=== PATIENT | male | born 1955 | race Caucasian/White ===

== ENCOUNTER 2021-01-06 23:31 | Emergency (ER) | payer OTHER ==
--- NOTE | 2021-01-07 00:39 | ER ---
Nurse's Notes [facility] Name: Haroldo Castillo Jr Age: 65 yrs Sex: Male : 1955 Arrival Date: 01/06/2021 Time: 23:34 Bed 5 Private MD: Diagnosis: Hypertension Presentation: 01/06 23:40 Chief complaint: Patient states: might have taken his medication or not this morning ca1 for BP, felt anxious and checked BP at home, was 197/107, denies chest pain, headache or any other symptoms. Coronavirus screen: Client denies travel out of the [place] in the last 14 days. Ebola Screen: Patient negative for fever greater than or equal to 101.5 degrees Fahrenheit, and additional compatible Ebola Virus Disease symptoms Patient denies exposure to infectious person. Patient denies travel to an Ebola-affected area in the 21 days before illness onset. No symptoms or risks identified at this time. Initial Sepsis Screen: Does the patient meet any 2 criteria? No. Patient's initial sepsis screen is negative. Does the patient have a suspected source of infection? No. Patient's initial sepsis screen is negative. Risk Assessment: Do you want to hurt yourself or someone else? Patient reports no desire to harm self or others. Onset of symptoms was January 06, 2021. 23:40 Method Of Arrival: Ambulatory ca1 23:40 Acuity: VIKTOR 3 ca1 Historical: - Allergies: 23:43 No Known Allergies; ca1 - PMHx: 23:43 Hypertensive disorder; ca1 - PSHx: 23:43 Cholecystectomy; ca1 - Immunization history:: Adult Immunizations up to date. - Social history:: Smoking status: Patient denies any tobacco usage or history of. Screenin/05 00:16 Abuse screen: Denies threats or abuse. Denies injuries from another. Nutritional bs2 screening: No deficits noted. Tuberculosis screening: No symptoms or risk factors identified. Fall Risk None identified. Assessment: 00:16 General: Appears in no apparent distress. comfortable, obese, well groomed, well bs2 developed, well nourished, Behavior is calm, cooperative, appropriate for age. Pain: Denies pain. Neuro: No deficits noted. Cardiovascular: No deficits noted. Respiratory: No deficits noted. GI: No deficits noted. No signs and/or symptoms were reported involving the gastrointestinal system. : No deficits noted. No signs and/or symptoms were reported regarding the genitourinary system. EENT: No deficits noted. No signs and/or symptoms were reported regarding the EENT system. Derm: No deficits noted. No signs and/or symptoms reported regarding the dermatologic system. Musculoskeletal: No deficits noted. No signs and/or symptoms reported regarding the musculoskeletal system. 00:17 General: pt feels he did not take his BP medication this morning and his BP is bs2 elevated, no complaint of pain or any S/S. Pt states he really just wanted to know if he had taken his medication this morning and then took it again tonight would it have hurt him. . Vital Signs: 01/06 23:40 BP 198 / 95; Pulse 67; Resp 18; Temp 98.3; Pulse Ox 99% on R/A; Weight 104.78 kg; ca1 Height 5 ft. 8 in. (172.72 cm); Pain 0/10; 01/07 00:43 BP 168 / 94; Pulse 68; Resp 18; Temp 98.3; Pulse Ox 100% ; Pain 0/10; bs2 01/06 23:40 Body Mass Index 35.12 (104.78 kg, 172.72 cm) ca1 ED Course: 01/06 23:34 Patient arrived in ED. bp1 23:43 Triage completed. ca1 23:43 Arm band placed on. ca1 01/07 00:16 Patient has correct armband on for positive identification. Bed in low position. Call bs2 light in reach. Side rails up X 1. Pulse ox on. NIBP on. 00:16 No provider procedures requiring assistance completed. bs2 00:26 Mike Jacobson MD is Attending Physician. pkl 00:43 Patient did not have IV access during this emergency room visit. bs2 Administered Medications: No medications were administered Outcome: 00:39 Discharge ordered by . pkl 00:43 Discharged to home ambulatory, with family. bs2 00:43 Condition: improved 00:43 Discharge instructions given to patient, family, Instructed on discharge instructions, follow up and referral plans. medication usage, Demonstrated understanding of instructions, follow-up care. 00:44 Patient left the ED. bs2 Signatures: Mike Jacobson MD MD pkl Jessica Pearce RN RN ca1 Kajal Morfin bp1 Crow, Yamile bs2
--- NOTE | 2021-01-07 00:39 | EDPHYS ---
Physician Documentation [facility] Name: Haroldo Castillo Jr Age: 65 yrs Sex: Male : 1955 Arrival Date: 01/06/2021 Time: 23:34 Bed 5 Private MD: ED Physician Mike Jacobson HPI: 01/07 00:32 This 65 yrs old Male presents to ER via Ambulatory with complaints of High pkl Blood Pressure. 00:32 Onset: The symptoms/episode began/occurred today. Associated signs and symptoms: The pkl patient has no apparent associated signs or symptoms. Patient unsure if he took his BP medication this morning.. Historical: - Allergies: 01/06 23:43 No Known Allergies; ca1 - PMHx: 23:43 Hypertensive disorder; ca1 - PSHx: 23:43 Cholecystectomy; ca1 - Immunization history:: Adult Immunizations up to date. - Social history:: Smoking status: Patient denies any tobacco usage or history of. ROS: 01/07 00:32 Eyes: Negative for injury, pain, redness, and discharge, ENT: Negative for injury, pkl pain, and discharge, Neck: Negative for injury, pain, and swelling, Cardiovascular: Negative for chest pain, palpitations, and edema, Respiratory: Negative for shortness of breath, cough, wheezing, and pleuritic chest pain, Abdomen/GI: Negative for abdominal pain, nausea, vomiting, diarrhea, and constipation, Back: Negative for injury and pain, : Negative for injury, bleeding, discharge, and swelling, MS/Extremity: Negative for injury and deformity, Skin: Negative for injury, rash, and discoloration, Neuro: Negative for headache, weakness, numbness, tingling, and seizure. Exam: 00:32 Head/Face: Normocephalic, atraumatic. Eyes: Pupils equal round and reactive to light, pkl extra-ocular motions intact. Lids and lashes normal. Conjunctiva and sclera are non-icteric and not injected. Cornea within normal limits. Periorbital areas with no swelling, redness, or edema. ENT: Nares patent. No nasal discharge, no septal abnormalities noted. Tympanic membranes are normal and external auditory canals are clear. Oropharynx with no redness, swelling, or masses, exudates, or evidence of obstruction, uvula midline. Mucous membranes moist. Neck: Trachea midline, no thyromegaly or masses palpated, and no cervical lymphadenopathy. Supple, full range of motion without nuchal rigidity, or vertebral point tenderness. No Meningismus. Chest/axilla: Normal chest wall appearance and motion. Nontender with no deformity. No lesions are appreciated. Cardiovascular: Regular rate and rhythm with a normal S1 and S2. No gallops, murmurs, or rubs. Normal PMI, no JVD. No pulse deficits. Respiratory: Lungs have equal breath sounds bilaterally, clear to auscultation and percussion. No rales, rhonchi or wheezes noted. No increased work of breathing, no retractions or nasal flaring. Abdomen/GI: Soft, non-tender, with normal bowel sounds. No distension or tympany. No guarding or rebound. No evidence of tenderness throughout. Back: No spinal tenderness. No costovertebral tenderness. Full range of motion. Skin: Warm, dry with normal turgor. Normal color with no rashes, no lesions, and no evidence of cellulitis. MS/ Extremity: Pulses equal, no cyanosis. Neurovascular intact. Full, normal range of motion. Neuro: Awake and alert, GCS 15, oriented to person, place, time, and situation. Cranial nerves II-XII grossly intact. Motor strength 5/5 in all extremities. Sensory grossly intact. Cerebellar exam normal. Normal gait. Vital Signs: 01/06 23:40 BP 198 / 95; Pulse 67; Resp 18; Temp 98.3; Pulse Ox 99% on R/A; Weight 104.78 kg; ca1 Height 5 ft. 8 in. (172.72 cm); Pain 0/10; 01/07 00:43 BP 168 / 94; Pulse 68; Resp 18; Temp 98.3; Pulse Ox 100% ; Pain 0/10; bs2 01/06 23:40 Body Mass Index 35.12 (104.78 kg, 172.72 cm) ca1 MDM: 00:26 Patient medically screened. pkl 00:36 Data reviewed: vital signs, nurses notes. ED course: Patient asymptomatic. Advised pkl patient he may take his BP med. tonight. Administered Medications: No medications were administered Disposition Summary: 01/07/21 00:39 Discharge Ordered Location: Home pkl Problem: new pkl Symptoms: have improved pkl Condition: Stable pkl Diagnosis - Hypertension pkl Followup: pkl - With: Private Physician - When: 2 - 3 days - Reason: Re-evaluation by your physician Forms: - Medication Reconciliation Form pkl - Thank You Letter pkl - Antibiotic Education pkl - Prescription Opioid Use pkl Signatures: Mike Jacobson MD MD pkl Jessica Pearce RN RN ca1
[2021-01-07 00:49] VITALS: TEMP 98.3
[2021-01-07 00:50] VITALS: BP 168/94; O2SAT 100
== END 2021-01-07 00:44 | disposition home or self-care (01) ==
LOC: ER 23:31
DX: I10 Essential (primary) hypertension (principal)
CPT/HCPCS: 99283

== ENCOUNTER 2022-02-07 07:32 | Emergency (ER) | payer MEDICARE ==
--- OUTSIDE RECORDS SUMMARY | 2022-02-07 07:35 | XMS REPORT | Continuity of Care Document ---
:1955 Author Organization [facility] t Address [address] [place] [address] Care Team Providers Name Role Phone Jorge Oates Attending Clinician Unavailable Lucian Orosco Attending Clinician Unavailable Michelle Mendez Attending Clinician Unavailable MICHELLE MENDEZ Attending Clinician Unavailable Jorge Oates Admitting Clinician Unavailable UNDEFINED Admitting Clinician Unavailable Physician, No Primary or Family Admitting Clinician UnavailMichelle Burton Admitting Clinician Unavailable Payers Payer Name Policy Type Policy Number Effective Date Expiration Date [facility] On [facility]iz [id number] 2021 (MEDICARE 00:00:00 REPLACEMENT HMO) Problems This patient has no known problems. Allergies, Adverse Reactions, Alerts Allergy Allergy Status Severity Reaction(s) Onset Inactive Treating Comm ents Source Name Type Date Date Clinician No Known DA Active U [facility] Allergie 7-20 [place] s 00:00: [facility] [address] [facility] Medications This patient has no known medications. Procedures Procedure Date / Time Performed Performing Clinician [facility] ez [id number] 2022-02-03 00:00:00 REYMUNDO [facility] [id number] 2022-01-27 00:00:00 HAAER [facility] [id number] 2022-01-27 00:00:00 [facility] [id number] 2022-01-27 00:00:00 AER [facility] [id number] 2022-01-27 00:00:00 [facility] Encounters Start End Encounter Admission Attending Care Care Encounter Source Date/Time Date/Time Type Type Clinicians Facility Department ID 2022-02-02 Inpatient EM [facility] [id number] [facility] 10:23:00 Jorge [id number] [facility] are [facility] 2022-02-02 2022-02-05 Inpatient EM [facility] [id number] [facility] 10:23:00 16:36:00 Jorge 61 [facility] are [facility] 2022-02-01 2022-02-01 Emergency EM Ana Luisa [facility] OANH [id number] [facility] 12:26:00 16:45:00 Lucian 30 [facility] are [facility] 2022-02-01 2022-02-01 Emergency EM Ana Luisa [facility] [id number] [facility] 12:26:00 16:45:00 Lucian [id number] [facility] 2022-01-27 2022-01-30 Inpatient EL Mendez, Michelle [facility] [id number] [facility] 05:57:00 10:01:00 [id number] [facility] 2022-01-27 2022-01-30 Inpatient EL Mendez, Michelle [facility]01 [id number] [facility] 05:57:00 10:01:[address] [facility] [place] [place] 2022-01-28 2022-01-28 Outpatient Mendez, Michelle HCANW REF BN02 [id number] [facility] 08:13:00 08:13:00 48 [facility] 2022-01-22 2022-01-22 Outpatient EL Mendez, Michelle [facility] 3DAY [id number] [facility] 08:00:00 23:00:00 76 [facility] 2022-01-22 2022-01-22 Outpatient MENDEZ, MICHELLE [facility] 2100 [id number] [place] 00:00:00 00:00:00 335 [facility] 2022-01-22 2022-01-22 Outpatient MENDEZ, MICHELLE [facility] 2100 [id number] [place] 00:00:00 00:00:00 543 [facility] 2022-01-22 2022-01-22 Outpatient MENDEZ, MICHELLE [facility] 2100 [id number] [place] 00:00:00 00:00:[address] 2022-01-17 2022-01-17 Outpatient DMG DMG [id number] [facility] 06:04:00 06:04:00 07[facility] 2021-06-11 2021-06-11 Outpatient DMG DMG [id number] [facility] 08:01:00 08:01:00 1207 [facility] Results Test Description Test Time Test Comments Results Result Comments Source BASIC METABOLIC PANEL 2022-02-05 05:47:00 Test Item Value Reference Range Interpretation Comme nts SODIUM (test code = NA) 141 mmol/L 136-145 N Plea se note: New Reference Range Aug 2020 POTASSIUM (test code = K) 3.4 mmol/L 3.5-5.1 L CHLORIDE (test code = CL) 107 mmol/L 98-[address] ease note: New Reference Range Aug 2020 CARBON DIOXIDE (test code 27 mmol/L 20-[address] Pl ease note: New Reference = CO2) Range Aug 2020 GLUCOSE (test code = GLU) 94 mg/dL 74-[address] ease note: New Reference Range Aug 2020 BLOOD UREA NITROGEN (test 13 mg/dL 9-[address] ease note: New Reference code = BUN) Range Aug 2020 GLOMERULAR FILTRATION >=60 max estimate >60 U nits are mL/min/1.73m2 RATE (test code = GFR) mL/min The e stimated glomerular filtration rate is computed usingp atient race, age (>18) , sex, and serum creatinin e. If anyof the needed data elements are missing the Laboratory cannot compute an estimation of t he glomerular filt ration rate. CREATININE (test code = 0.50 mg/dL 0.70-1.30 L Plea se note: New Reference CREAT) Range Aug 2020 CALCIUM (test code = CA) 8.2 mg/dL 8.7-10.4 L Ple ase note: New Reference Range Aug 2020 [id number] 05:47:00 Test Item Value Reference Range Interpretation Comments MAGNESIUM (test code = 1.8 mg/dL 1.6-2.6 N Pleas e note: New MAG) Reference Range Aug 2020 - XR ABDOMEN [id number] 08:37:00 [facility] 1955 Sex: MPatient Name: MARGARET WEEMS JR Unit No: [id number] EXAMS: CPT CODE: [id number] XR ABDOMEN 1V 58356 Abdomen (KUB) History: abdominal exam Comparison: February 02, 2022 Location: [facility] Number ofimages: 1 There are dilated air-filled loops of small bowel. The bones appear unchanged. No pathologic calcifications are identified. IMPRESSION: There continue to be dilated air-filled loops of small bowel, which could be due to a small bowel obstruction. This finding appears similar to the prior exam. The nasogastric tube terminates in the stomach. The sidehole of the nasogastric tube is in the region of the gastroesophageal junction may want to be advanced about 4 cm. at 0837 Reported and signed by: CARLOS JIMENEZ M.D. CC: Jorge Oates MD; Casper Blanco DO Technologist: Galo Keyes RT (R), (CT) Fluoro Time: DAP (Gy m2): Air Kerma (mGy): Trscr Dt/Tm: 02/04/2022 (0837) by:[email or web address] Printed Date/Time: 02/04/2022 (0840)Name: MARGARET WEEMS JR [facility] Phys: Casper Esqueda DO [address] : 1955 Age: 66 Sex: [place] [address] Loc: P.0576 1 Exam Date: 02/04/2022 Status: ADM IN PH: FAX: PAGE 1 Signed ReportBASIC METABOLIC [id number] 05:03:00 Test Item Value Reference Range Interpretation Comments SODIUM (test code 143 mmol/L 136-145 N Please not e: New = NA) Reference Range Aug 2020 POTASSIUM (test 3.1 mmol/L 3.5-5.1 L code = K) CHLORIDE (test 106 mmol/L 98-107 N Please note: New code = CL) Reference Range Aug 2020 CARBON DIOXIDE 27 mmol/L 20-31 N Please note: New (test code = CO2) Reference Range Aug 2020 GLUCOSE (test code 87 mg/dL 74-106 N Please no te: New = GLU) Reference Range Aug 2020 BLOOD UREA 16 mg/dL 9-23 N Please note: Ne w NITROGEN (test Reference Ran ge Feb code = BUN) 2020 GLOMERULAR >=60 max >60 Units are FILTRATION RATE estimate mL/min mL/min/1. 73m2 The (test code = GFR) estimated glomerular filtration rate is computed usingpatient ra ce, age (>18), sex, and serum creatinin e. If anyof the neede d data elements a re missing the Laboratory faith ot compute an estimation of t he glomerular filtration rate . CREATININE (test 0.60 mg/dL 0.70-1.30 L Please note : New code = CREAT) Reference Rang e Aug 2020 CALCIUM (test code 8.0 mg/dL 8.7-10.4 L Please no te: New = CA) Reference Range Aug 2020 [id number] 05:03:00 Test Item Value Reference Range Interpretation Comments MAGNESIUM (test code = 2.0 mg/dL 1.6-2.6 N Pleas e note: New MAG) Reference Range Aug 2020 - XR CHEST 1 [id number] 08:55:00 [facility] : 1955 Sex: MPatient Name: MARGARET WEEMS JR Unit No: [id number] EXAMS: CPT CODE: [id number] XR CHEST 1 V 11841 Chest Radiograph History: NG TUBE PLACEMENT Comparison: February 02, 2022 Location: H45 A single frontal view of the chest is submitted. The heart appears unchanged in size. Pulmonary vasculature is unremarkable. The visualized lung crook appear to be free of disease. The bones appear unchanged. A nasogastric tube terminates in the stomach. IMPRESSION: There is no radiographic evidence of acute cardiopulmonary disease. at 0855 Reported and signed by: CARLOS JIMENEZ M.D. CC: Jorge Oates MD; Casper Blanco DO Technologist: Chelsey Barillas (R) Fluoro Time: DAP (Gy m2): Air Kerma (mGy): Trscr Dt/Tm: 02/03/2022 (0855)by:[email or web address] Printed Date/Time: 02/03/2022 (0859) Name[facility] Cas[facility]qu[facility] [address] : 1955 Age: 66 Sex: M [place], [place] [address]Uthh No: [id number] Loc: P.0576 1 Exam Date: 02/03/2022 Status: ADM IN PH: FAX: PAGE 1 Signed ReportBASIC METABOLIC PANEL 2022-02-03 04:13:00 Test Item Value Reference Range Interpretation Comments SODIUM (test code 140 mmol/L 136-145 N Please not e: New = NA) Reference Range Aug 2020 POTASSIUM (test 3.5 mmol/L 3.5-5.1 N code = K) CHLORIDE (test 103 mmol/L 98-107 N Please note: New code = CL) Reference Range Aug 2020 CARBON DIOXIDE 28 mmol/L 20-31 N Please note: New (test code = CO2) Reference Range Aug 2020 GLUCOSE (test code 88 mg/dL 74-106 N Please no te: New = GLU) Reference Range Aug 2020 BLOOD UREA 15 mg/dL 9-23 N Please note: Ne w NITROGEN (test Reference Ran ge Feb code = BUN) 2020 GLOMERULAR >=60 max >60 Units are FILTRATION RATE estimate mL/min mL/min/1. 73m2 The (test code = GFR) estimated glomerular filtration rate is computed usingpatient ra ce, age (>18), sex, and serum creatinin e. If anyof the neede d data elements a re missing the Laboratory faith ot compute an estimation of t he glomerular filtration rate . CREATININE (test 0.60 mg/dL 0.70-1.30 L Please note : New code = CREAT) Reference Rang e Aug 2020 CALCIUM (test code 8.2 mg/dL 8.7-10.4 L Please no te: New = CA) Reference Range Aug 2020 [id number] 04:13:00 Test Item Value Reference Range Interpretation Comments PHOSPHOROUS (test code 3.5 mg/dL 2.4-5.1 N Pleas e note: New = PHOS) Reference Range Aug 2020 [id number] 04:13:00 Test Item Value Reference Range Interpretation Comments MAGNESIUM (test code = 1.9 mg/dL 1.6-2.6 N Pleas e note: New MAG) Reference Range Aug 2020 CBC W/AUTO [id number] 03:51:00 Test Item Value Reference Range Interpretation Comments WHITE BLOOD CELL (test code = 7.6 x10 3/uL 4.8-10.8 N WBC) RED BLOOD CELL (test code = 3.96 x10 6/uL 4.70-6.10 L RBC) HEMOGLOBIN (test code = HGB) 12.4 g/dL 14.0-18.0 L HEMATOCRIT (test code = HCT) 36.3 % 42.0-52.0 L MEAN CELL VOLUME (test code = 91.7 fL 80.0-94.0 N MCV) MEAN CELL HGB (test code = MCH) 31.3 pg 27-31 H MEAN CELL HGB CONCENTRATION 34.2 G/DL 33-36.5 N (test code = MCHC) RED CELL DISTRIBUTION WIDTH 12.6 % 12.9-16.9 L (test code = RDW) PLATELET COUNT (test code = 381 x10 3/uL 150-440 N PLT) MEAN PLATELET VOLUME (test code 10.2 fL 8.9-12.4 N = MPV) NEUTROPHIL % (test code = NT%) 71.6 % 42.2-75.2 N LYMPHOCYTE % (test code = LY%) 9.5 % 20.5-51.1 L MONOCYTE % (test code = MO%) 15.2 % 1.7-9.3 H EOSINOPHIL % (test code = EO%) 2.9 % 0.0-7.0 N BASOPHIL % (test code = BA%) 0.3 % 0-2.5 N NEUTROPHIL # (test code = NT#) 5.44 x10 3/uL 1.80-7.70 N LYMPHOCYTE # (test code = LY#) 0.72 x10 3/uL 1.00-4.80 L MONOCYTE # (test code = MO#) 1.15 x10 3/uL 0.00-0.80 H EOSINOPHIL # (test code = EO#) 0.22 x10 3/uL 0.00-0.45 N BASOPHIL # (test code = BA#) 0.02 x10 3/uL 0.0-0.20 N - XR CHEST 1 [id number] 17:41:00 [facility] 1955 Sex: MPatient Name: MARGARET WEEMS Unit No: [id number] EXAMS: CPT CODE: [id number] XR CHEST 1 V 03196 EXAM: - XR CHEST 1 V, - XR ABDOMEN 1V HISTORY: Pain. Post surgery. COMPARISON: February 01, 2022. FINDINGS: Single portable view of the chest and abdomen is provided. Heart size and vascularity are within normal limits. There is no evidence of a focal consolidation. There is no pleural effusion or pneumothorax. Nasogastric tube is projecting over the distal stomach. Cholecystectomy clips is present. Gas-filled distended loops of bowel as before. There is no definite acute osseous abnormality. IMPRESSION: Gas distended bowel may represent obstruction or ileus. at 1741 Reported and signed by: BRIANNA MELLO M.D. CC: Jeff Oates MD Technologist: Brie Gutiérrez Time: DAP (Gy m2): Air Kerma (mGy): Trscr Dt/Tm: 02/02/2022 (1740) by:[email or web address] Printed Date/Time: 02/02/2022 (174) Name: MARGARET WEEMS JR [facility] Phys: Jorge Montes MD [address] : 1955 Age: 66 Sex: [place] [address] Loc: P.0576 1 Exam Date: 02/02/2022 Status: ADM IN PH: FAX: PAGE 1 Signed Report- XR ABDOMEN 1V 2022-02-02 17:41:00 [facility] : 1955 Sex: MPatient Name: MARGARET WEEMS JR Unit No: [id number] EXAMS: CPT CODE: [id number] XR ABDOMEN 1V 93313 EXAM: - XR CHEST 1 V, - XR ABDOMEN 1V HISTORY: Pain. Post surgery. COMPARISON: February 01, 2022. FINDINGS: Single portable view of the chest and abdomen is provided. Heart size and vascularity are within normal limits. There is no evidence of a focal consolidation. There is no pleural effusionor pneumothorax. Nasogastric tube is projecting over the distal stomach. Cholecystectomy clips is present. Gas-filled distended loops of bowel as before. There is no definite acute osseous abnormality.IMPRESSION: Gas distended bowel may represent obstruction or ileus. at 1741 Reported and signed by: BRIANNA MELLO M.D. CC: Jeff Oates MD; Casper Blanco DO Technologist: Brie Gutiérrez Time: DAP (Gy m2): Air Kerma (mGy): Trscr Dt/Tm: 02/02/2022 (174) by:[email or web address] Printed Date/Time: 02/02/2022 (174)Name: MARGARET WEEMS JR [facility] Phys: Casper Esqueda DO [address] : 1955 Age: 66 Sex: [place] [address] Loc: P.0576 1 Exam Date: 02/02/2022 Status: ADM IN PH: FAX: PAGE 1 Signed Report- XR ABDOMEN [id number] 10:08:00 [facility] : 1955 Sex: MPatient Name: MARGARET WEEMS JR Unit No: [id number] EXAMS: CPT CODE: [id number] XR ABDOMEN 1V 48416 Location code: B2 Abdomen one view HISTORY: Abdominal pain. Comparison to CT scan from yesterday COMMENT: The abdominal radiograph shows mildly prominent small bowel loops in the central abdomen measuring up to 5.1 cm. Minimal scattered gas in the colon. There is no pneumatosis or mass effect. There are no radiopaque densities noted. There are no clinically significant osseous abnormalities noted. IMPRESSION: 1. Prominent small bowel loops may suggest a partial small bowel obstruction or ileus at 1008 Reported and signed by: Yong Castle M.D. CC: Technologist: Brie Gutiérrez Time: DAP (Gy m2): Air Kerma (mGy): Trscr Dt/Tm: 02/02/2022 (1008) by:[email or web address] Printed Date/Time: 02/02/2022 (1011) Name: MARGARET WEEMS JR [facility] Phys: Jose Butts [address] : 1955 Age: 66 Sex: [place] [address] Loc: MALIKA Exam Date: 02/02/2022 Status: REG ER PH: FAX: PAGE 1 Signed ReportBASIC METABOLIC [id number] 10:02:00 Test Item Value Reference Range Interpretation Comments SODIUM (test code 136 mmol/L 136-145 N Please not e: New = NA) Reference Range Aug 2020 POTASSIUM (test 3.5 mmol/L 3.5-5.1 N code = K) CHLORIDE (test 100 mmol/L 98-107 N Please note: New code = CL) Reference Range Aug 2020 CARBON DIOXIDE 29 mmol/L 20-31 N Please note: New (test code = CO2) Reference Range Aug 2020 GLUCOSE (test code 120 mg/dL 74-106 H Please no te: New = GLU) Reference Range Aug 2020 BLOOD UREA 12 mg/dL 9-23 N Please note: Ne w NITROGEN (test Reference Ran ge Feb code = BUN) 2021 GLOMERULAR >=60 max >60 Units are FILTRATION RATE estimate mL/min mL/min/1. 73m2 The (test code = GFR) estimated glomerular filtration rate is computed usingpatient ra ce, age (>18), sex, and serum creatinin e. If anyof the neede d data elements a re missing the Laboratory faith ot compute an estimation of t he glomerular filtration rate . CREATININE (test 0.60 mg/dL 0.70-1.30 L Please note : New code = CREAT) Reference Rang e Aug 2020 CALCIUM (test code 8.8 mg/dL 8.7-10.4 N Please no te: New = CA) Reference Range Aug 2020 LIVER FUNCTION [id number] 10:02:00 Test Item Value Reference Range Interpretation Comments TOTAL PROTEIN (test 6.6 g/dL 5.7-8.2 N Please n ote: New code = PROT) Reference Range Aug 2020 ALBUMIN (test code = 3.9 g/dL 3.2-4.8 N Please note: New ALB) Reference Range Aug 2020 BILIRUBIN TOTAL (test 1.6 mg/dL 0.3-1.2 H Please note: New code = BILT) Reference Range Aug 2020 BILIRUBIN DIRECT (test 0.7 mg/dL <0.3 H Pleas e note: New code = BILD) Reference Range Aug 2020 SGOT/AST (test code = 19 U/L <34 N Please note: New AST) Reference Range Aug 2020 SGPT/ALT (test code = 12 U/L 10-49 N Please note: New ALT) Reference Range Aug 2020 ALKALINE PHOSPHATASE 48 U/L 46-116 N Please note: New (test code = ALKP) Reference Range Aug 2020 [id number] 10:02:00 Test Item Value Reference Range Interpretation Comments LIPASE (test code = 70 U/L 12-53 H Please n ote: New LIP) Reference Range Aug 2020 CBC W/AUTO [id number] 09:34:00 Test Item Value Reference Range Interpretation Comments WHITE BLOOD CELL (test code = 12.2 x10 3/uL 4.8-10.8 H WBC) RED BLOOD CELL (test code = 4.30 x10 6/uL 4.70-6.10 L RBC) HEMOGLOBIN (test code = HGB) 13.5 g/dL 14.0-18.0 L HEMATOCRIT (test code = HCT) 38.9 % 42.0-52.0 L MEAN CELL VOLUME (test code = 90.5 fL 80.0-94.0 N MCV) MEAN CELL HGB (test code = 31.4 pg 27-31 H MCH) MEAN CELL HGB CONCENTRATION 34.7 G/DL 33-36.5 N (test code = MCHC) RED CELL DISTRIBUTION WIDTH 12.4 % 12.9-16.9 L (test code = RDW) PLATELET COUNT (test code = 433 x10 3/uL 150-440 N PLT) MEAN PLATELET VOLUME (test 10.1 fL 8.9-12.4 N code = MPV) NEUTROPHIL % (test code = NT%) 84.1 % 42.2-75.2 H LYMPHOCYTE % (test code = LY%) 4.5 % 20.5-51.1 L MONOCYTE % (test code = MO%) 9.9 % 1.7-9.3 H EOSINOPHIL % (test code = EO%) 0.6 % 0.0-7.0 N BASOPHIL % (test code = BA%) 0.2 % 0-2.5 N NEUTROPHIL # (test code = NT#) 10.24 x10 3/uL 1.80-7.70 H LYMPHOCYTE # (test code = LY#) 0.55 x10 3/uL 1.00-4.80 L MONOCYTE # (test code = MO#) 1.20 x10 3/uL 0.00-0.80 H EOSINOPHIL # (test code = EO#) 0.07 x10 3/uL 0.00-0.45 N BASOPHIL # (test code = BA#) 0.03 x10 3/uL 0.0-0.20 N - CT ABD PELVIS [id number] 15:49:00 [facility] 1955 Sex: MPatient Name: MARGARET WEEMS JR Unit No: [id number] EXAMS: CPT CODE: [id number] CT ABD PELVIS W/CONT 73984 EXAM: - CT ABD PELVIS W/CONT HISTORY: Post colectomy. TECHNIQUE: Axial tomograms through the abdomen and pelvis were obtained after intravenous contrast. Coronal and sagittal reformatted images are provided. This exam was performed according to our departmental dose-optimization program, which includes automated exposure control, adjustment of the mA and/or kV according to patientsize and/or use of iterative reconstruction technique. COMPARISON: None available time of interpretation. FINDINGS: The visualized lung bases are clear. There is minimal free intraperitoneal air. Thereis minimal free fluid in abdomen and pelvis. Postsurgical changes are present in right lower bowel. The stomach is filled with fluid. Loops of small bowel are distended with gas and air-fluid levels. The gallbladder is surgically absent. The liver, spleen, pancreas, adrenal glands and kidneys demonstrate no significant abnormalities. A small 1.6 cm cortical cyst in right kidney. No hydronephrosis. Diffuse degenerative changes are present in spine. Calcified plaques are present in aorta and coronary arteries. IMPRESSION: Status post bowel surgery. Minimal intraperitoneal free air and free fluid. Distended loops of small bowel may represent ileus. at 1549 Reported and signed by: BRIANNA MELLO M.D. Name: MARGARET WEEMS JR [facility] Phys: Lucian Castle MD [address] : 1955 Age: 66 Sex:[place] [address] Loc: P.ERS Exam Date: 02/01/2022 Status: REG ER PH: FAX: PAGE 1 Signed Report (CONTINUED) Patient Name: MARGARET WEEMS JR Unit No: [id number] EXAMS: CPT CODE: [id number] CT ABD PELVIS W/CONT 86096 <Continued> CC: Lucian Orosco MD Technologist: NILAM SAMANO RT (R),(CT) CTDI: 8.57 DLP: 600.77 Trscr Dt/Tm: 02/01/2022 (1549) by:[email or web address] Maliha nted Date/Time: 02/01/2022 (9072) Name: MARGARET WEEMS JR [facility] Phys: Lucian Castle MD [address] : 1955 Age: 66 Sex: [place] [address] Loc: P.ERS Exam Date: 02/01/2022 Status: REG ER PH: FAX: PAGE 2 Signed ReportUA RFLX MICR CULT IF [id number] 14:29:00 Test Item Value Reference Range Interpretation Comments UA COLOR (test code = COLU) YELLOW DISCRIPT YELLOW UA APPEARANCE (test code = CLEAR DISCRIPT CLEAR APPU) UA GLUCOSE DIPSTICK (test NEGATIVE mg/dL NEGATIVE code = DGLUU) UA BILIRUBIN DIPSTICK (test SMALL NEGATIVE A code = BILU) UA KETONE DIPSTICK (test code 15 mg/dL NEGATIVE A = KETU) UA SPECIFIC GRAVITY (test 1.025 1.005-1.030 code = SGU) UA BLOOD DIPSTICK (test code TRACE NEGATIVE A = OG) UA PH DIPSTICK (test code = 6.0 5.0-9.0 MARIA GUADALUPE) UA PROTEIN DIPSTICK (test 30 mg/dL NEGATIVE A code = PROU) UA UROBILINOGEN DIPSTICK 4.0 mg/dL 0.2-1.0 A (test code = URO) UA NITRITE DIPSTICK (test NEGATIVE NEGATIVE code = BHARGAV) UA LEUKOCYTE ESTERASE NEGATIVE NEGATIVE DIPSTICK (test code = LEUU) UA WBC (test code = WBCU) 0-2 #WBC/HPF 0-2 UA RBC (test code = RBCU) 0-2 #RBC/HPF 0-2 UA BACTERIA (test code = TRACE /HPF NONE-TRACE A BACU) UA SQUAMOUS CELLS (test code NONE SEEN /LPF NONE-TRACE = SQU) Indication for culture: Suprapubic PainBASIC METABOLIC [id number] 14:04:00 Test Item Value Reference Range Interpretation Comments SODIUM (test code 137 mmol/L 136-145 N Please not e: New = NA) Reference Range Aug 2020 POTASSIUM (test 3.2 mmol/L 3.5-5.1 L code = K) CHLORIDE (test 101 mmol/L 98-107 N Please note: New code = CL) Reference Range Aug 2020 CARBON DIOXIDE 31 mmol/L 20-31 N Please note: New (test code = CO2) Reference Range Aug 2020 GLUCOSE (test code 109 mg/dL 74-106 H Please no te: New = GLU) Reference Range Aug 2020 BLOOD UREA 12 mg/dL 9-23 N Please note: Ne w NITROGEN (test Reference Ran ge Feb code = BUN) 2020 GLOMERULAR >=60 max >60 Units are FILTRATION RATE estimate mL/min mL/min/1. 73m2 The (test code = GFR) estimated glomerular filtration rate is computed usingpatient ra ce, age (>18), sex, and serum creatinin e. If anyof the neede d data elements a re missing the Laboratory faith ot compute an estimation of t he glomerular filtration rate . CREATININE (test 0.60 mg/dL 0.70-1.30 L Please note : New code = CREAT) Reference Rang e Aug 2020 CALCIUM (test code 8.7 mg/dL 8.7-10.4 N Please no te: New = CA) Reference Range Aug 2020 LIVER FUNCTION [id number] 14:04:00 Test Item Value Reference Range Interpretation Comments TOTAL PROTEIN (test 6.6 g/dL 5.7-8.2 N Please n ote: New code = PROT) Reference Range Aug 2020 ALBUMIN (test code = 3.8 g/dL 3.2-4.8 N Please note: New ALB) Reference Range Aug 2020 BILIRUBIN TOTAL (test 1.3 mg/dL 0.3-1.2 H Please note: New code = BILT) Reference Range Aug 2020 BILIRUBIN DIRECT (test 0.6 mg/dL <0.3 H Pleas e note: New code = BILD) Reference Range Aug 2020 SGOT/AST (test code = 16 U/L <34 N Please note: New AST) Reference Range Aug 2020 SGPT/ALT (test code = 9 U/L 10-49 L Please note: New ALT) Reference Range Aug 2020 ALKALINE PHOSPHATASE 44 U/L 46-116 L Please note: New (test code = ALKP) Reference Range Aug 2020 [id number] 14:04:00 Test Item Value Reference Range Interpretation Comments LIPASE (test code = 61 U/L 12-53 H Please n ote: New LIP) Reference Range Aug 2020 CBC W/AUTO [id number] 13:36:00 Test Item Value Reference Range Interpretation Comments WHITE BLOOD CELL (test code = 10.7 x10 3/uL 4.8-10.8 N WBC) RED BLOOD CELL (test code = 4.20 x10 6/uL 4.70-6.10 L RBC) HEMOGLOBIN (test code = HGB) 13.4 g/dL 14.0-18.0 L HEMATOCRIT (test code = HCT) 38.8 % 42.0-52.0 L MEAN CELL VOLUME (test code = 92.4 fL 80.0-94.0 N MCV) MEAN CELL HGB (test code = MCH) 31.9 pg 27-31 H MEAN CELL HGB CONCENTRATION 34.5 G/DL 33-36.5 N (test code = MCHC) RED CELL DISTRIBUTION WIDTH 12.6 % 12.9-16.9 L (test code = RDW) PLATELET COUNT (test code = 396 x10 3/uL 150-440 N PLT) MEAN PLATELET VOLUME (test code 11.1 fL 8.9-12.4 N = MPV) NEUTROPHIL % (test code = NT%) 81.2 % 42.2-75.2 H LYMPHOCYTE % (test code = LY%) 6.3 % 20.5-51.1 L MONOCYTE % (test code = MO%) 9.9 % 1.7-9.3 H EOSINOPHIL % (test code = EO%) 1.9 % 0.0-7.0 N BASOPHIL % (test code = BA%) 0.2 % 0-2.5 N NEUTROPHIL # (test code = NT#) 8.67 x10 3/uL 1.80-7.70 H LYMPHOCYTE # (test code = LY#) 0.67 x10 3/uL 1.00-4.80 L MONOCYTE # (test code = MO#) 1.06 x10 3/uL 0.00-0.80 H EOSINOPHIL # (test code = EO#) 0.20 x10 3/uL 0.00-0.45 N BASOPHIL # (test code = BA#) 0.02 x10 3/uL 0.0-0.20 N [id number] 12:37:00 Test Item Value Reference Range Interpretation Comments SURGICAL (test code = SR) RUN DATE: 01/31/22 [facility] - LAB PAGE 1 RUN TIME: 1237 Specimen Inquiry RUN USER: INTERFACE SCOTTIE ENT: MARGARET WEEMS JR LOC: P.5N POD B U #: [id number] AGE/SX: 66/M ROOM: [facility] RE01/27/22[facility] DR: Michelle Mendez MD : 53 BED: 1 DIS: 01/30/22 STATUS: DIS IN TLOC: SPEC #: [id number] RECD: 01/28/22 STATUS: PATTIE SAAVEDRA #: [id number] MIKEY: 01/27/22-[address]: Michelle Mendez MD ENTERED: 01/28/22 SP TYPE: SURGICAL OTHR DR: Quentin Provider ORDERED: [id number], [id number], 15990/4, ANATOMIC SPEC HISTOLOGY: TISSUE ID BLK PCS HARPER LEV / PROCEDURE DISPOSITION ____ ___ ___ ___ ___ COLON NOS A 22 1 BONY B 1 1 TISSUES: A. COLON NOS - RIGHT COLON, LYMPH NODES B. OMENTUM RESECTION FOR TUMOR - OMENTUM CAP CANCER SUMMARY CASE SUMMARY: (COLON AND RECTUM) Standard(s): AJCC-UICC 8 SPECIMEN Procedure: Right hemicolectomy TUMOR Tumor Site: Right colonHistologic Type: Adenocarcinoma Histologic Grade: G2, moderately differentiated Tumor Size: 1.0 cm ( based on combination of gross and microscopic evaluation)Multiple Primary Sites: Not applicable Tumor Extent: Invades the submucosaMacroscopic Tumor Perforation: Not identified Lymphovascular Invasion: Not identifiedPerineural Invasion: Not identifiedTreatment Effect: No known pre-surgical therapy MARGINS Margin Status for Invasive Carcinoma:All margins (proximal, distal, and radial) negative for invasive carcinoma REGIONAL LYMPH NODES Regional Lymph Node Status: Tumor present in regional lymph node(s) Number of Lymph Nodes with Tumor: Exact number (specify): 1Number of Lymph Nodes Examined: Exact number (specify): 16Tumor Deposits: Not identified. DISTANT METASTASIS Distant Site(s) Involved: Not applicable CONTINUED ON NEXT PAGE RUN DATE: 01/31/22 [facility] - LAB PAGE 2 RUN TIME: 1237 Specimen Inquiry RUN USER: INTERFACE SPEC #: [id number] PATIENT: MARGARET WEEMS #[id number] (Continued) ------- CAP CANCER SUMMARY (Continued) PATHOLOGIC STAGE CLASSIFICATION (pTNM, AJCC 8th Edition) TNM Descriptors: Not applicablepT Category: pT1: Tumor invades the submucosa (through the muscularis mucosa but not intothe muscularis propria)pN Category: pN1a: One regional lymph node is positivepM Category: Not applicable - pM cannot be determined from the submitted specimen(s) FINAL DIAGNOSIS A. TERMINAL ILEUM, RIGHT COLON, AND APPENDIX, RIGHT HEMICOLECTOMY:- Invasive colonic adenocarcinoma, moderately-differentiated, 1.0 cm.- Tumor extends into the submucosa. - Perineural and lymphovascular invasion not identified. - Adjacent mural tattoo. - One of 16 lymph nodes, positive for metastatic carcinoma (1 16). - Resection margins are negative for tumor and adenomatous changes. - Appendix with fibrous obliteration of the distal lumen.- Uninvolved colon with one tubular adenoma and three submucosal lipomas. - Small intestine with no histopathologic alteration. - AJCC Pathologic Stage: pT1 N1a (see tumor summary). Immunohistochemistry (IHC) Testing for Mismatch Repair (MMR) ProteinsResults: MLH1: Loss of nuclear expression, 0%MSH2: Intact nuclear expression, 3+, 100%MSH6: Intact nuclear expression, 3+, 100%PMS2: Loss of nuclear expression, 0%Background nonneoplastic tissue/internal control with intact nuclear expression. IHC interpretation: Loss of nuclear expression of MLH1 and PMS2.Testing for methylation of the MLH1 promoter and / or mutation of BRAF may be indicated(the presence of a BRAF V600E mutation and / or MLH1 methylation suggests that the tumor issporadic and germline evaluation is probably not indicated; absence of both ZEZ1gyhmobgzpuy and of BRAF V600E mutation suggests the possibility of Tuttle syndrome andsequencing and / or large deletion / duplication testing of germline MLH1 may beindicated). B. OMENTUM, RESECTION:- Benign omental fibroadipose tissue, negative for carcinoma. GROSS DESCRIPTION A. Received in formalin, labeled with the patient's name, date of and designatedspecimen A "right colon and lymph nodes". It consists of a large segment of bowel with anattached small bowel. The large bowel measures 21 cm in total length, whereas, the smallbowel measures 4 cm in total length. The specimen has two stapled closed margins. Alsoincluded, is an attached appendix measuring 7 cm in total length with an average diameterof 0.4 cm. The serosa is dejesus smooth. There is attached unremarkable pericolonic softtissue. The specimen is opened longitudinally, revealing an average circumference of 9 cm. CONTINUED ON NEXT PAGE RUN DATE: 01/31/22 [facility] - LAB PAGE 3 RUN TIME: 1237 Specimen Inquiry RUN USER: INTERFACE SPEC #: [id number] PATIENT: MARGARET WEEMS JR #[id number] (Continued) ------- GROSS DESCRIPTION (Continued) The mucosal surface is dejesus with rugal folds. Grossly identified is a tattooed area with a2.0 cm flat ill-defined mucosal thickening in the right colon. Additionally, there arethree fatty submucosal lesions measuring an average of 1.2 cm each. The lesion at thetattoo is banegas flat to slightly depressed measures 2 x 1 cm. This lesion is located 13 cmfrom the distal margin, 12 cm from the proximal margin and 6 cm from mesenteric margin. Anadditional slightly polypoid lesion measuring 0.8 cm in greatest dimension is also presentin the cecum. The specimen is sectioned, revealing an average wall thickness of 0.2 cm andis submitted representatively as follows: A1 - proximal margin; A2 - distal margin; A3 -mesenteric margin; A4 to A7 - sections from the mucosal lesion at the tattoo; A8 -ileocecal valve; A9 and A10 - additional irregular polypoid mucosa at cecum; A11 to A12 -slightly firm mucosa; A13 - appendix; A14 - lipoma; A15 - five lymph node candidates; A16- four lymph node candidates; A17 - one lymph node candidate, sectioned; A18 - one lymphnode candidate, sectioned; A19 - nine lymph node candidates. Additional lymph nodecandidates are identified and submitted across cassettes A20 to A22 - Five lymph nodecandidates per cassette. B. Received in formalin, labeled with the patient's name, date of and specimen B"omentum". It consists of a yellow soft fragment of tissue that measures 30 x 6.5 x 1 cm. The specimen is serially sectioned. No discrete lesion is grossly identified. Thespecimen is submitted representatively in cassette B. TRAY/layla Technical component performed at [facility], [place], [address] Unless gross only, the diagnosis is based upon microscopic examination.Immunohistochemistry : This test was developed and its performancecharacteristics determined by this laboratory. It has not been approved nordoes it need approval by the [place] FDA. Appropriate positive and negative controlsare reviewed and judged to be acceptable. This laboratory is certified underthe Clinical Laboratory Improvement Amendments (CLIA-88) as qualified toperform high complexity clinical laboratory testing. MICROSCOPIC DESCRIPTION Performed. Tumor block = A6 CLINICAL INFORMATION RIGHT COLON CARCINOMA ----- Signed SIGNATURE ON FILE EfremGuerrero 01/31/22 1237 END OF REPORT BASIC METABOLIC [id number] 04:30:00 Test Item Value Reference Range Interpretation Comments SODIUM (test code 134 mmol/L 136-145 L Please not e: New = NA) Reference Range Aug 2020 POTASSIUM (test 3.7 mmol/L 3.5-5.1 N code = K) CHLORIDE (test 101 mmol/L 98-107 N Please note: New code = CL) Reference Range Aug 2020 CARBON DIOXIDE 26 mmol/L 20-31 N Please note: New (test code = CO2) Reference Range Aug 2020 GLUCOSE (test code 93 mg/dL 74-106 N Please no te: New = GLU) Reference Range Aug 2020 BLOOD UREA 16 mg/dL 9-23 N Please note: Ne w NITROGEN (test Reference Ran ge Feb code = BUN) 2020 GLOMERULAR >=60 max >60 Units are FILTRATION RATE estimate mL/min mL/min/1. 73m2 The (test code = GFR) estimated glomerular filtration rate is computed usingpatient ra ce, age (>18), sex, and serum creatinin e. If anyof the neede d data elements a re missing the Laboratory faith ot compute an estimation of t he glomerular filtration rate . CREATININE (test 0.70 mg/dL 0.70-1.30 N Please note : New code = CREAT) Reference Rang e Aug 2020 CALCIUM (test code 8.9 mg/dL 8.7-10.4 N Please no te: New = CA) Reference Range Aug 2020 [id number] 04:30:00 Test Item Value Reference Range Interpretation Comments MAGNESIUM (test code = 2.0 mg/dL 1.6-2.6 N Pleas e note: New MAG) Reference Range Aug 2020 CBC W/AUTO [id number] 04:18:00 Test Item Value Reference Range Interpretation Comments WHITE BLOOD CELL (test code = 12.6 x10 3/uL 4.8-10.8 H WBC) RED BLOOD CELL (test code = 4.01 x10 6/uL 4.70-6.10 L RBC) HEMOGLOBIN (test code = HGB) 12.7 g/dL 14.0-18.0 L HEMATOCRIT (test code = HCT) 37.8 % 42.0-52.0 L MEAN CELL VOLUME (test code = 94.3 fL 80.0-94.0 H MCV) MEAN CELL HGB (test code = 31.7 pg 27-31 H MCH) MEAN CELL HGB CONCENTRATION 33.6 G/DL 33-36.5 N (test code = MCHC) RED CELL DISTRIBUTION WIDTH 12.8 % 12.9-16.9 L (test code = RDW) PLATELET COUNT (test code = 257 x10 3/uL 150-440 N PLT) MEAN PLATELET VOLUME (test 10.9 fL 8.9-12.4 N code = MPV) NEUTROPHIL % (test code = NT%) 86.4 % 42.2-75.2 H LYMPHOCYTE % (test code = LY%) 6.5 % 20.5-51.1 L MONOCYTE % (test code = MO%) 4.8 % 1.7-9.3 N EOSINOPHIL % (test code = EO%) 1.5 % 0.0-7.0 N BASOPHIL % (test code = BA%) 0.2 % 0-2.5 N NEUTROPHIL # (test code = NT#) 10.91 x10 3/uL 1.80-7.70 H LYMPHOCYTE # (test code = LY#) 0.82 x10 3/uL 1.00-4.80 L MONOCYTE # (test code = MO#) 0.60 x10 3/uL 0.00-0.80 N EOSINOPHIL # (test code = EO#) 0.19 x10 3/uL 0.00-0.45 N BASOPHIL # (test code = BA#) 0.03 x10 3/uL 0.0-0.20 N BASIC METABOLIC [id number] 05:44:00 Test Item Value Reference Range Interpretation Comments SODIUM (test code 136 mmol/L 136-145 N Please not e: New = NA) Reference Range Aug 2020 POTASSIUM (test 3.9 mmol/L 3.5-5.1 N code = K) CHLORIDE (test 103 mmol/L 98-107 N Please note: New code = CL) Reference Range Aug 2020 CARBON DIOXIDE 26 mmol/L 20-31 N Please note: New (test code = CO2) Reference Range Aug 2020 GLUCOSE (test code 100 mg/dL 74-106 N Please no te: New = GLU) Reference Range Aug 2020 BLOOD UREA 12 mg/dL 9-23 N Please note: Ne w NITROGEN (test Reference Ran ge Feb code = BUN) 2020 GLOMERULAR >=60 max >60 Units are FILTRATION RATE estimate mL/min mL/min/1. 73m2 The (test code = GFR) estimated glomerular filtration rate is computed usingpatient ra ce, age (>18), sex, and serum creatinin e. If anyof the neede d data elements a re missing the Laboratory faith ot compute an estimation of t he glomerular filtration rate . CREATININE (test 0.70 mg/dL 0.70-1.30 N Please note : New code = CREAT) Reference Rang e Aug 2020 CALCIUM (test code 8.3 mg/dL 8.7-10.4 L Please no te: New = CA) Reference Range Aug 2020 [id number] 05:44:00 Test Item Value Reference Range Interpretation Comments MAGNESIUM (test code = 2.1 mg/dL 1.6-2.6 N Pleas e note: New MAG) Reference Range Aug 2020 CBC W/AUTO [id number] 05:36:00 Test Item Value Reference Range Interpretation Comments WHITE BLOOD CELL (test code = 15.0 x10 3/uL 4.8-10.8 H WBC) RED BLOOD CELL (test code = 4.26 x10 6/uL 4.70-6.10 L RBC) HEMOGLOBIN (test code = HGB) 13.3 g/dL 14.0-18.0 L HEMATOCRIT (test code = HCT) 39.9 % 42.0-52.0 L MEAN CELL VOLUME (test code = 93.7 fL 80.0-94.0 N MCV) MEAN CELL HGB (test code = 31.2 pg 27-31 H MCH) MEAN CELL HGB CONCENTRATION 33.3 G/DL 33-36.5 N (test code = MCHC) RED CELL DISTRIBUTION WIDTH 13.0 % 12.9-16.9 N (test code = RDW) PLATELET COUNT (test code = 256 x10 3/uL 150-440 N PLT) MEAN PLATELET VOLUME (test 10.9 fL 8.9-12.4 N code = MPV) NEUTROPHIL % (test code = NT%) 89.1 % 42.2-75.2 H LYMPHOCYTE % (test code = LY%) 5.9 % 20.5-51.1 L MONOCYTE % (test code = MO%) 4.3 % 1.7-9.3 N EOSINOPHIL % (test code = EO%) 0.1 % 0.0-7.0 N BASOPHIL % (test code = BA%) 0.2 % 0-2.5 N NEUTROPHIL # (test code = NT#) 13.41 x10 3/uL 1.80-7.70 H LYMPHOCYTE # (test code = LY#) 0.88 x10 3/uL 1.00-4.80 L MONOCYTE # (test code = MO#) 0.65 x10 3/uL 0.00-0.80 N EOSINOPHIL # (test code = EO#) 0.01 x10 3/uL 0.00-0.45 N BASOPHIL # (test code = BA#) 0.03 x10 3/uL 0.0-0.20 N BASIC METABOLIC [id number] 05:53:00 Test Item Value Reference Range Interpretation Comments SODIUM (test code 140 mmol/L 136-145 N Please not e: New = NA) Reference Range Aug 2020 POTASSIUM (test 3.9 mmol/L 3.5-5.1 N code = K) CHLORIDE (test 109 mmol/L 98-107 H Please note: New code = CL) Reference Range Aug 2020 CARBON DIOXIDE 22 mmol/L 20-31 N Please note: New (test code = CO2) Reference Range Aug 2020 GLUCOSE (test code 100 mg/dL 74-106 N Please no te: New = GLU) Reference Range Aug 2020 BLOOD UREA 14.4 mg/dL 9-23 N Please note: Ne w NITROGEN (test Reference Ran ge Feb code = BUN) 2020 GLOMERULAR >=60 max >60 Units are FILTRATION RATE estimate mL/min mL/min/1. 73m2 The (test code = GFR) estimated glomerular filtration rate is computed usingpatient ra ce, age (>18), sex, and serum creatinin e. If anyof the neede d data elements a re missing the Laboratory faith ot compute an estimation of t he glomerular filtration rate . CREATININE (test 0.60 mg/dL 0.70-1.30 L Please note : New code = CREAT) Reference Rang e Aug 2020 CALCIUM (test code 8.3 mg/dL 8.7-10.4 L Please no te: New = CA) Reference Range Aug 2020 [id number] 05:53:00 Test Item Value Reference Range Interpretation Comments MAGNESIUM (test code = 1.7 mg/dL 1.6-2.6 N Pleas e note: New MAG) Reference Range Aug 2020 COMPREHENSIVE METABOLIC [id number] 12:15:00 Test Item Value Reference Range Interpretation Comments SODIUM (test code = 142 mmol/L 136-145 N Please n ote: New NA) Reference Range Aug 2020 POTASSIUM (test 3.6 mmol/L 3.5-5.1 N code = K) CHLORIDE (test code 107 mmol/L 98-107 N Please n ote: New = CL) Reference Range Aug 2020 CARBON DIOXIDE 30 mmol/L 20-31 N Please note: New (test code = CO2) Reference Range Aug 2020 GLUCOSE (test code 93 mg/dL 74-106 N Please no te: New = GLU) Reference Range Aug 2020 BLOOD UREA NITROGEN 12 mg/dL 9-23 N Please n ote: New (test code = BUN) Reference Range Aug 2020 GLOMERULAR >=60 max >60 Units are FILTRATION RATE estimate mL/min mL/min/1. 73m2 The (test code = GFR) estimated glomerular filtration rate is computed usingpatient ra ce, age (>18), sex, and serum creatinin e. If anyof the ne eded data elements a re missing the Laboratory faith ot compute an estimation of t he glomerular filtration rate . CREATININE (test 0.70 mg/dL 0.70-1.30 N Please note : New code = CREAT) Reference Rang e Aug 2020 TOTAL PROTEIN (test 6.6 g/dL 5.7-8.2 N Please n ote: New code = PROT) Reference Range Aug 2020 ALBUMIN (test code 4.3 g/dL 3.2-4.8 N Please no te: New = ALB) Reference Range Aug 2020 CALCIUM (test code 9.1 mg/dL 8.7-10.4 N Please no te: New = CA) Reference Range Aug 2020 BILIRUBIN TOTAL 0.9 mg/dL 0.3-1.2 N Please note: New (test code = BILT) Reference Range Aug 2020 SGOT/AST (test code 19 U/L <34 N Please n ote: New = AST) Reference Range Aug 2020 SGPT/ALT (test code 13 U/L 10-49 N Please n ote: New = ALT) Reference Range Aug 2020 ALKALINE 63 U/L 46-116 N Please note: Ne w PHOSPHATASE (test Reference Range Feb code = ALKP) 2020 AG [id number] 12:15:00 Test Item Value Reference Range Interpretation Comments AG CARCINOEMBRYONIC (test 2.32 ng/mL 0.0-3.0 [address] Pl ease note: New code = CEA) Reference Range Aug 2020 PROTHROMBIN [id number] 12:06:00 Test Item Value Reference Range Interpretation Comments PROTHROMBIN TIME 12.1 SECONDS 10.3-12.9 N PATIENT (test code = PTP) INTERNATIONAL 1.06 INR UNIT 0.9-1.11 N The INR is us eful only NORMAL RATIO (test for monit oring code = INR) anticoagulant therapy.It may be unreliable in t he initial phase o f antigoagulation and in unstable patien ts. Indication for Anticoagulation Recommended INR 1. Prevention of v enous thomboembolism 2.0-3.0in high- risk patients; treat ment of venousthrombosi s and pulmonary embol ism aftera course o f heparin; preven tion of systemicembolis m in a variety of cond itions, including atria l fibrillation an d prothetic tissu e heart valves, 2. Pros thetic mechanical hear t valves; 2.5-3.5recurren t systemic emboli sm. THROMBOPLASTIN TIME [id number] 12:06:00 Test Item Value Reference Range Interpretation Comments THROMBOPLASTIN TIME 30.1 SECONDS 23.8-34.8 N INTERPRE TATIVE PARTIAL (test code = DATA: erapeutic PTT) range: Unfractionated heparin:55 - 80 seconds Argatroban:1.5 to 3 times the basel ine PTT CBC W/AUTO [id number] 11:53:00 Test Item Value Reference Range Interpretation Comments WHITE BLOOD CELL (test code = 8.0 x10 3/uL 4.8-10.8 N WBC) RED BLOOD CELL (test code = 4.94 x10 6/uL 4.70-6.10 N RBC) HEMOGLOBIN (test code = HGB) 15.7 g/dL 14.0-18.0 N HEMATOCRIT (test code = HCT) 45.1 % 42.0-52.0 N MEAN CELL VOLUME (test code = 91.3 fL 80.0-94.0 N MCV) MEAN CELL HGB (test code = MCH) 31.8 pg 27-31 H MEAN CELL HGB CONCENTRATION 34.8 G/DL 33-36.5 N (test code = MCHC) RED CELL DISTRIBUTION WIDTH 12.7 % 12.9-16.9 L (test code = RDW) PLATELET COUNT (test code = 333 x10 3/uL 150-440 N PLT) MEAN PLATELET VOLUME (test code 10.5 fL 8.9-12.4 N = MPV) NEUTROPHIL % (test code = NT%) 66.6 % 42.2-75.2 N LYMPHOCYTE % (test code = LY%) 22.0 % 20.5-51.1 N MONOCYTE % (test code = MO%) 8.9 % 1.7-9.3 N EOSINOPHIL % (test code = EO%) 1.5 % 0.0-7.0 N BASOPHIL % (test code = BA%) 0.6 % 0-2.5 N NEUTROPHIL # (test code = NT#) 5.34 x10 3/uL 1.80-7.70 N LYMPHOCYTE # (test code = LY#) 1.76 x10 3/uL 1.00-4.80 N MONOCYTE # (test code = MO#) 0.71 x10 3/uL 0.00-0.80 N EOSINOPHIL # (test code = EO#) 0.12 x10 3/uL 0.00-0.45 N BASOPHIL # (test code = BA#) 0.05 x10 3/uL 0.0-0.20 N
[2022-02-07 08:36] LABS: Hematocrit 38.1 % (39.6-49.0); Lymphocytes % 5.6 % (15.3-44.8); MCV 91.5 fL (80-100); MPV 8.2 fL (7.6-11.3); RBC Red Blood Cell Count 4.16 M/uL (4.33-5.43)
[2022-02-07 08:50] LABS: Albumin 2.3 g/dL (3.4-5.0); Bilirubin Total 0.9 mg/dL (0.2-1.0); Potassium 3.1 mmol/L (3.5-5.1)
[2022-02-07] MEDS ORDERED: NA CHLORIDE 0.9% 1,000 ML ONE (08:55)
[2022-02-07] MEDS ORDERED: FAMOTIDINE 20 MG/2 ML VIAL IV ONE (08:55)
--- NOTE | 2022-02-07 09:39 | RAD REPORT ---
EXAM DESCRIPTION: CTAbdomen Pelvis W Contrast - 02/07/2022 9:18 am CLINICAL HISTORY: Abdominal pain. Abdominal pain, acute, nonlocalized COMPARISON: Abdomen Pelvis W Contrast dated 12/05/2021; CT ABD PELVIS W CONTRAST dated 04/05/2014; Mr i Abdomen W/Wo Cont dated 12/17/2021 TECHNIQUE: Biphasic CT imaging of the abdomen and pelvis was performed with 100 ml non-ionic IV cont rast. All CT scans are performed using dose optimization technique as appropriate and may include automated exposure control or mA/KV adjustment according to patient size. FINDINGS: The lung bases are clear. Small 15 mm hypodense lesion along the anterior right lobe of the liver appears unchanged. No intrahe patic or extrahepatic biliary tree dilatation. Cholecystectomy clips. The spleen, pancreas, adrenal g lands and kidneys are within normal limits. Small benign bilateral renal cysts. Small air bubbles seen in the peritoneal cavity is likely postoperative in etiology. Fluid filled dil atation of small bowel loops and colon is seen. The loops of bowel are not significantly distended. Postsurgical changes are present right colon with anastomosis noted. Mild fluid is seen around the an astomosis. No evidence of significant lymphadenopathy. Mild lumbar degenerative changes. IMPRESSION: Fluid-filled distention of small and large bowel without particular organized pattern weaver ggests adynamic ileus. Postoperative changes right colon. Mild free fluid in the abdomen and pelvis.
[2022-02-07] MEDS ORDERED: CEFEPIME 1 GM/VIAL ONE (10:24)
[2022-02-07] MEDS ORDERED: VANCOMYCIN 1 GM/VIAL ONE (10:24)
[2022-02-07] MEDS ORDERED: NA CHLORIDE 0.9% 0 ML ONE ×2 (10:24)
[2022-02-07] MEDS ORDERED: LIDOCAINE VISCOUS 2% SOLN 15 ML UDC ONE (11:01)
[2022-02-07 11:32] LABS: SARS-CoV-2 Antigen Rapid Res Negative (Negative)
--- NOTE | 2022-02-07 11:52 | EDPHYS ---
Physician Documentation [facility] Name: Haroldo Castillo Jr Age: 66 yrs Sex: Male : 1955 Arrival Date: 02/07/2022 Time: 07:33 Bed 18 Private MD: Ed Wang E ED Physician Kevin Boyer HPI: 02/07 08:19 This 66 yrs old Male presents to ER via Ambulatory with complaints of Nausea, Post kdr Surgical Pain - problem. 08:19 Patient's sister gives a history of colon resection on January 27 for colon cancer. He was kdr subsequently released on the . They then went back to the hospital on the due to the fact the patient was having nausea and vomiting and no rectal output. He was subsequently diagnosed with a bowel obstruction. That was resolved with an NG tube. She was then released yesterday on the . Patient started having vomiting and diarrhea last night around 1030. Patient had contacted his physician (Dr. Sutherland (who then to either return to see him or to come to the nearest facility pain. Since patient was having intermittent diarrhea, they decided to come to this facility for evaluation and possible transfer back to his initial facility. Severity of symptoms: At their worst the symptoms were mild moderate just prior to arrival, in the emergency department the symptoms are unchanged. The patient has not experienced similar symptoms in the past. The patient has been recently seen by a physician: the patient's primary care provider. Historical: - Allergies: 07:44 No Known Allergies; ap3 - Home Meds: 07:44 amlodipine 10 mg tab [Active]; Lasix Oral [Active]; ap3 - PMHx: 07:44 Hypertensive disorder; colon cancer; ap3 - PSHx: 07:44 Cholecystectomy; ap3 - Immunization history:: Client reports receiving the 2nd dose of the Covid vaccine. - Social history:: Smoking status: Patient denies any tobacco usage or history of. ROS: 08:19 Constitutional: Negative for fever, chills, and weight loss, Eyes: Negative for injury, kdr pain, redness, and discharge, ENT: Negative for injury, pain, and discharge, Neck: Negative for injury, pain, and swelling, Cardiovascular: Negative for chest pain, palpitations, and edema, Respiratory: Negative for shortness of breath, cough, wheezing, and pleuritic chest pain, Back: Negative for injury and pain, : Negative for injury, bleeding, discharge, and swelling, MS/Extremity: Negative for injury and deformity, Skin: Negative for injury, rash, and discoloration, Neuro: Negative for headache, weakness, numbness, tingling, and seizure activity. Psych: Negative for depression, anxiety, suicide ideation, homicidal ideation, and hallucinations, Allergy/Immunology: Negative for hives, rash, and allergies, Endocrine: Negative for neck swelling, polydipsia, polyuria, polyphagia, and marked weight changes, Hematologic/Lymphatic: Negative for swollen nodes, abnormal bleeding, and unusual bruising. 08:19 Abdomen/GI: Positive for abdominal pain, nausea, vomiting, and diarrhea, Negative for abdominal cramps, abdominal distension, anorexia, dysphagia, hematemesis, black/tarry stool, rectal pain, rectal bleeding, bowel incontinence. Exam: 08:19 Constitutional: This is a well developed, well nourished patient who is awake, alert, kdr and in no acute distress. Head/Face: Normocephalic, atraumatic. Eyes: Pupils equal round and reactive to light, extra-ocular motions intact. Lids and lashes normal. Conjunctiva and sclera are non-icteric and not injected. Cornea within normal limits. Periorbital areas with no swelling, redness, or edema. Neck: Trachea midline, no thyromegaly or masses palpated, and no cervical lymphadenopathy. Supple, full range of motion without nuchal rigidity, or vertebral point tenderness. No Meningismus. Chest/axilla: Normal chest wall appearance and motion. Nontender with no deformity. No lesions are appreciated. Cardiovascular: Regular rate and rhythm with a normal S1 and S2. No gallops, murmurs, or rubs. Normal PMI, no JVD. No pulse deficits. Respiratory: Lungs have equal breath sounds bilaterally, clear to auscultation and percussion. No rales, rhonchi or wheezes noted. No increased work of breathing, no retractions or nasal flaring. Abdomen/GI: Soft, non-tender, with normal bowel sounds. No distension or tympany. No guarding or rebound. No evidence of tenderness throughout. Back: No spinal tenderness. No costovertebral tenderness. Full range of motion. Skin: Warm, dry with normal turgor. Normal color with no rashes, no lesions, and no evidence of cellulitis. MS/ Extremity: Pulses equal, no cyanosis. Neurovascular intact. Full, normal range of motion. Neuro: Awake and alert, GCS 15, oriented to person, place, time, and situation. Cranial nerves II-XII grossly intact. Motor strength 5/5 in all extremities. Sensory grossly intact. Cerebellar exam normal. Normal gait. Psych: Awake, alert, with orientation to person, place and time. Behavior, mood, and affect are within normal limits. 08:19 Abdomen/GI: Healing slightly erythematous and is worse incision just above his suprapubic area. It is nontender to palpation and there is no drainage that can be expressed from the wound.. Vital Signs: 07:42 BP 123 / 57; Pulse 79; Resp 19; Temp 98.0; Pulse Ox 98% ; Weight 97.52 kg; Height 5 ft. ap3 8 in. (172.72 cm); 09:20 BP 142 / 68; Pulse 65; Resp 18 S; Pulse Ox 98% on R/A; Pain 0/10; aa5 10:00 BP 140 / 80; Pulse 57; Resp 16 S; Pulse Ox 96% on R/A; aa5 12:00 BP 134 / 85; Pulse 65; Resp 18 S; Temp 98.1(TE); Pulse Ox 96% on R/A; Pain 0/10; aa5 07:42 Body Mass Index 32.69 (97.52 kg, 172.72 cm) ap3 MDM: 08:19 Data reviewed: vital signs, nurses notes, lab test result(s), radiologic studies. kdr Counseling: I had a detailed discussion with the patient and/or guardian regarding: the historical points, exam findings, and any diagnostic results supporting the discharge/admit diagnosis, lab results, radiology results, the need for outpatient follow up. 11:52 Patient medically screened. kdr 02/07 08:14 Order name: CBC with Diff; Complete Time: 09:30 kdr 02/07 08:14 Order name: CMP; Complete Time: 09:30 kdr 02/07 08:14 Order name: Lipase; Complete Time: 09:30 kdr 02/07 09:31 Order name: Blood Culture Adult (2) kdr 02/07 10:32 Order name: SARS RAPID; Complete Time: 11:48 eb 02/07 10:48 Order name: Fecal Leukocyte Stain kdr 02/07 08:14 Order name: CT Abd/Pelvis - IV Contrast Only; Complete Time: 09:56 kdr 02/07 10:48 Order name: Occult Blood kdr 02/07 10:48 Order name: Ova And Parasites kdr 02/07 10:48 Order name: Stool Culture kdr 02/07 10:48 Order name: C.difficile Real-time kdr 02/07 10:48 Order name: C.difficile kdr 02/07 12:42 Order name: Urine Dipstick-Ancillary EDIL 02/07 08:14 Order name: IV Saline Lock; Complete Time: 08:28 kdr 02/07 08:14 Order name: Labs collected and sent; Complete Time: 08:29 kdr 02/07 08:14 Order name: Urine Dipstick-Ancillary (obtain specimen); Complete Time: 12:56 kdr Administered Medications: 08:58 Drug: NS 0.9% 1000 ml Route: IV; Rate: 1 bolus; Site: right antecubital; aa5 10:00 Follow up: IV Status: Completed infusion; IV Intake: 1000ml aa5 08:58 Drug: Pepcid (famotidine) 20 mg Route: IVP; Site: right antecubital; aa5 09:05 Follow up: Response: No adverse reaction aa5 10:31 CANCELLED (Physician Discretion): vancoMYCIN 1 grams IVPB once over 2 hrs aa5 10:31 CANCELLED (Physician Discretion): Cefepime 1 grams IVPB at 200 ml/hr once over 30 mins; aa5 (mix in NS 100 mL) 11:10 Drug: Viscous Lidocaine Liquid (4 %) 10 ml {Note: applied to hemorrhoids per MD.} aa5 Route: Mucous Membrane; Disposition Summary: 02/07/22 11:52 Transfer Ordered Transfer Location: Other Acute Care Facility kdr Reason: Higher level of care kdr Condition: Serious kdr Problem: new kdr Symptoms: have improved kdr Accepting Physician: Darleen/Vanessa: [facility](02/07/22 13:06) eb Diagnosis - Vomiting kdr - Diarrhea, unspecified kdr - Abdominal pain, Generalized kdr - Biliary acute pancreatitis kdr - Dehydration kdr Forms: - Medication Reconciliation Form kdr - SBAR form kdr Signatures: Dispatcher [employer] EDMS Kevin Boyer MD MD kdr Luci Lozoya RN RN aa5 Marisol Baer RN RN ap3 Lizet Dinh Jennifer RN RN [id number] Corrections: (The following items were deleted from the chart) 10: 09:31 vancoMYCIN 1 grams IVPB once over 2 hrs ordered. kdr aa5 10: 09:31 Cefepime 1 grams IVPB at 200 ml/hr once over 30 mins; (mix in NS 100 mL) ordered. aa5 kdr 10: 10:31 Cefepime 1 grams IVPB at 200 ml/hr once over 30 mins; (mix in NS 100 mL) ordered. aa5 aa5 10: 10:31 vancoMYCIN 1 grams IVPB once over 2 hrs ordered. aa5 aa5 13:06 11:52 Flumanuel/Vanessa: [facility] eb
--- NOTE | 2022-02-07 11:52 | ER ---
Nurse's Notes [facility] Name: Haroldo Castillo Jr Age: 66 yrs Sex: Male : 1955 Arrival Date: 02/07/2022 Time: 07:33 Bed 18 Private MD: Ed Wang E Diagnosis: Vomiting;Diarrhea, unspecified;Abdominal pain, Generalized;Biliary acute pancreatitis;Dehydration Presentation: 02/07 07:42 Chief complaint: Spouse and/or significant other states: the patient had colon sx for ap3 colon cancer on 01/27 and was released on 01/30. His states he went back this past Friday 02/02 and was admitted for a blockage, was then released yesterday 02/06/22. patient comes to the ED today complaining of nausea, vomiting and diarrhea that began last night around 1030. it is reported they contacted Dr. Crawley who did the sx, and he told them to go back to the hospital. Coronavirus screen: Client presents with at least one sign or symptom that may indicate coronavirus-19. Ebola Screen: No symptoms or risks identified at this time. Initial Sepsis Screen: Does the patient meet any 2 criteria? No. Patient's initial sepsis screen is negative. Does the patient have a suspected source of infection? No. Patient's initial sepsis screen is negative. Risk Assessment: Do you want to hurt yourself or someone else? Patient reports no desire to harm self or others. Onset of symptoms was February 06, 2022. 07:42 Method Of Arrival: Ambulatory ap3 07:42 Acuity: VIKTOR 3 ap3 Triage Assessment: 07:46 General: Appears uncomfortable, Behavior is calm. Pain: Denies pain. Neuro: Level of ap3 Consciousness is awake, alert, obeys commands, Oriented to person, place, time, situation, Speech is normal. Cardiovascular: Patient's skin is warm and dry. Respiratory: Airway is patent Respiratory effort is even, unlabored, Respiratory pattern is regular, symmetrical. GI: Reports diarrhea, nausea, vomiting. Historical: - Allergies: 07:44 No Known Allergies; ap3 - Home Meds: 07:44 amlodipine 10 mg tab [Active]; Lasix Oral [Active]; ap3 - PMHx: 07:44 Hypertensive disorder; colon cancer; ap3 - PSHx: 07:44 Cholecystectomy; ap3 - Immunization history:: Client reports receiving the 2nd dose of the Covid vaccine. - Social history:: Smoking status: Patient denies any tobacco usage or history of. Screenin:46 Abuse screen: Denies threats or abuse. Nutritional screening: No deficits noted. ap3 Tuberculosis screening: No symptoms or risk factors identified. 08:00 Fall Risk None identified. aa5 Assessment: 08:00 General: Appears comfortable, Behavior is calm, cooperative. Pain: Denies pain. Neuro: aa5 Level of Consciousness is awake, alert, obeys commands, Oriented to person, place, time, situation. Cardiovascular: Heart tones S1 S2 present Rhythm is regular. Respiratory: Airway is patent Respiratory effort is even, unlabored, Respiratory pattern is regular, symmetrical. GI: Abdomen is round Bowel sounds present X 4 quads. Abd is non tender X 4 quads Reports diarrhea, nausea, vomiting, since last night. : No signs and/or symptoms were reported regarding the genitourinary system. EENT: No signs and/or symptoms were reported regarding the EENT system. Derm: Skin is pink, warm \T\ dry. Redness noted to abdominal incision sites, no drainage noted to sites, pt denies any pain. Musculoskeletal: Range of motion: intact in all extremities. 09:05 Reassessment: Pt to CT via stretcher . aa5 09:20 Reassessment: Patient is alert, oriented x 3, equal unlabored respirations, skin aa5 warm/dry/pink. Pt back from CT scan . 10:00 Reassessment: Pt resting in bed with eyes closed, respirations even and unlabored, skin aa5 is pink/warm/dry. . 10:50 Reassessment: Pt c/o discomfort to hemorrhoids, was notified. . aa5 11:30 Reassessment: Patient is alert, oriented x 3, equal unlabored respirations, skin aa5 warm/dry/pink. Patient denies pain at this time. Sitting up in bed watching TV. Awaiting transfer to [facility] . 12:00 Reassessment: Resting in bed with eyes closed, respirations even and unlabored, skin is aa5 pink/warm/dry. . 12:50 Reassessment: Patient is alert, oriented x 3, equal unlabored respirations, skin aa5 warm/dry/pink. Vital Signs: 07:42 BP 123 / 57; Pulse 79; Resp 19; Temp 98.0; Pulse Ox 98% ; Weight 97.52 kg; Height 5 ft. ap3 8 in. (172.72 cm); 09:20 BP 142 / 68; Pulse 65; Resp 18 S; Pulse Ox 98% on R/A; Pain 0/10; aa5 10:00 BP 140 / 80; Pulse 57; Resp 16 S; Pulse Ox 96% on R/A; aa5 12:00 BP 134 / 85; Pulse 65; Resp 18 S; Temp 98.1(TE); Pulse Ox 96% on R/A; Pain 0/10; aa5 07:42 Body Mass Index 32.69 (97.52 kg, 172.72 cm) ap3 ED Course: 07:33 Patient arrived in ED. am2 07:33 Ed Wang MD is Private Physician. am2 07:44 Triage completed. ap3 07:46 Arm band placed on right wrist. ap3 08:01 Kevin Boyer MD is Attending Physician. kdr 08:01 Patient has correct armband on for positive identification. Bed in low position. Call ap3 light in reach. Side rails up X 1. Adult w/ patient. Pulse ox on. NIBP on. Door closed. Noise minimized. 08:28 Luci Lozoya, YENI is Primary Nurse. aa5 08:29 Inserted saline lock: 20 gauge in right antecubital area, using aseptic technique. kc6 Blood collected. 08:29 CBC with Diff Sent. kc6 08:29 CMP Sent. kc6 08:29 Lipase Sent. kc6 09:19 CT Abd/Pelvis - IV Contrast Only In Process Unspecified. EDMS 10:33 initiated a transfer with Akanksha from the [facility] Transfer Center at the request of the patient and patients colorectal surgeon Dr. Crawley. 11:19 First set of blood cultures drawn by me. aa5 11:29 Second set of blood cultures drawn by me. aa5 11:47 connected the emergency room doctor health economist for [facility]. eb 11:50 administrative approval given by Akanksha Kaminski Rn/ patient has been accepted [facility]/ Dr. Douglas has accepted the patient in transfer/ report to be called to [phone]. 12:50 Patient transferred, IV remains in place. aa5 12:50 No provider procedures requiring assistance completed. aa5 Administered Medications: 08:58 Drug: NS 0.9% 1000 ml Route: IV; Rate: 1 bolus; Site: right antecubital; aa5 10:00 Follow up: IV Status: Completed infusion; IV Intake: 1000ml aa5 08:58 Drug: Pepcid (famotidine) 20 mg Route: IVP; Site: right antecubital; aa5 09:05 Follow up: Response: No adverse reaction aa5 10:31 CANCELLED (Physician Discretion): vancoMYCIN 1 grams IVPB once over 2 hrs aa5 10:31 CANCELLED (Physician Discretion): Cefepime 1 grams IVPB at 200 ml/hr once over 30 mins; aa5 (mix in NS 100 mL) 11:10 Drug: Viscous Lidocaine Liquid (4 %) 10 ml {Note: applied to hemorrhoids per MD.} aa5 Route: Mucous Membrane; Medication: 12:50 VIS not applicable for this client. aa5 Intake: 10:00 IV: 1000ml; Total: 1000ml. aa5 Outcome: 11:52 ER care complete, transfer ordered by MD. kdr 12:50 Transferred by ground EMS Transfer form completed. X-rays sent w/ patient. Note: [facility] aa hospital [facility], report given to [facility] prior to transfer and report given to [facility]. 12:50 Condition: stable aa5 12:50 Instructed on the need for transfer, Demonstrated understanding of instructions. 13:06 Patient left the ED. eb Signatures: Dispatcher [employer] EDMS Kevin Boyer MD MD kdr Luci Lozoya RN RN aa5 Marisol Johnson am2 Marisol Baer RN RN ap3 Lizet Dinh Kaitlyn kc6 Corrections: (The following items were deleted from the chart) 12:59 10:33 initiated a transfer with Akanksha from the [facility] Transfer Center eb
[2022-02-07 12:42] LABS: Urine Blood Negative (Negative); Urine Glucose Negative (Negative); Urine Protein Negative (Negative)
[2022-02-07 13:18] VITALS: TEMP 98; O2SAT 98
[2022-02-07 13:29] VITALS: BP 142/68
== END 2022-02-07 13:06 ==
LOC: ER 07:32
DX: E86.0 Dehydration (principal); K85.10 Biliary acute pancreatitis without necrosis or infection; R19.7 Diarrhea, unspecified; R10.84 Generalized abdominal pain; Z85.038 Personal history of other malignant neoplasm of large intestine; I10 Essential (primary) hypertension; Z20.822 Contact with and (suspected) exposure to COVID-19
CPT/HCPCS: 96361; 87040 ×2; 85025; 36415; 81003; 83690; 80053; 74177; 96374; 99285; 87811; Q9967; J3370; J7030; J0692; J7050

== ENCOUNTER 2022-02-17 12:10 | Emergency (ER) | payer MEDICARE ==
--- OUTSIDE RECORDS SUMMARY | 2022-02-17 12:15 | XMS REPORT | Continuity of Care Document ---
:1955 Author Organization [facility] t Address [address] [place] [address] Care Team Providers Name Role Phone Butch Scott Attending Clinician Unavailable Jorge Oates Attending Clinician Unavailable Lucian Orosco Attending Clinician Unavailable Michelle Mendez Attending Clinician Unavailable MICHELLE MENDEZ Attending Clinician Unavailable Butch Scott Admitting Clinician Unavailable Physician, No Primary or Family Admitting Clinician UnavailJorge Fay Admitting Clinician Unavailable UNDEFINED Admitting Clinician Unavailable Michelle Mendez Admitting Clinician Unavailable Payers Payer Name Policy Type Policy Number Effective Date Expiration Date S [facility] [id number] 2021 (MEDICARE 00:00:00 REPLACEMENT HMO) Problems This patient has no known problems. Allergies, Adverse Reactions, Alerts Allergy Allergy Status Severity Reaction(s) Onset Inactive Treating Comm ents Source Name Type Date Date Clinician No Known DA Active U [facility] Allergie 7-20 [place] 00:00: [facility] [address] Medications This patient has no known medications. Procedures Procedure Date / Time Performed Performing Clinician Natalie hui [id number] 2022-02-03 00:00:00 REYMUNDO [facility] [id number] 2022-01-27 00:00:00 AXEL [facility] [id number] 2022-01-27 00:00:00 AXEL [facility] [id number] 2022-01-27 00:00:00 AXEL [facility] [id number] 2022-01-27 00:00:00 HAAER [facility] Encounters Start End Encounter Admission Attending Care Care Encounter Source Date/Time Date/Time Type Type Clinicians Facility Department ID 2022-02-07 2022-02-11 Inpatient EM Tyler [facility] [id number] [facility] 14:40:00 15:08:00 Butch 81 [facility] 2022-02-07 2022-02-11 Inpatient EM Tyler [facility] [id number] [facility] 14:40:00 15:08:00 Butch [id number] [facility] 2022-02-08 2022-02-08 Outpatient DIANA ScottNW REF [id number] [facility] 06:03:00 06:03:00 Butch 34 [facility] 2022-02-02 2022-02-05 Inpatient EM Lacjeanne, [facility].01 [id number] [facility] 10:23:00 16:36:00 Jorge 61 [facility] 2022-02-02 2022-02-05 Inpatient EM Иван, [facility].01 [id number] [facility] 10:23:00 16:36:00 Jorge [id number] [facility] 2022-02-01 2022-02-01 Emergency EM Ana Luisa, [facility] [id number] [facility] 12:26:00 16:45:00 Lucian 30 [facility] 2022-02-01 2022-02-01 Emergency EM Ana Luisa, [facility] [id number] [facility] 12:26:00 16:45:00 Lucian [id number] [facility] 2022-01-27 2022-01-30 Inpatient EL Mendez, Michelle [facility] MED[facility].01 [id number] [facility] 05:57:00 10:01:00 [id number] [facility] 2022-01-27 2022-01-30 Inpatient EL Mendez, Michelle [facility].01 [id number] [facility] 05:57:00 10:01:00 36 [facility] 2022-01-28 2022-01-28 Outpatient MendezMichelle rodriguez [facility] REF [id number] [facility] 08:13:00 08:13:[address] [facility] 2022-01-22 2022-01-22 Outpatient EL Michelle Mendez [facility] 3DAY [id number] [facility] 08:00:00 23:00:00 76 [facility] 2022-01-22 2022-01-22 Outpatient MENDEZ, MICHELLE [facility] [id number] [place] 00:00:00 00:00:[address] 2022-01-22 2022-01-22 [id number] [place] 00:00:00 00:00:[address] 2022-01-22 2022-01-22 Outpatient MENDEZ, MICHELLE [facility] [id number] [place] 00:00:00 00:00:[address] 2022-01-17 2022-01-17 Outpatient DMG DMG [id number] [facility] 06:04:00 06:04:00 [facility] 2021-06-11 2021-06-11 Outpatient DMG DMG [id number] 021 [facility] 08:01:00 08:01:00 [facility] Results Test Description Test Time Test Comments Results Result Comments Source BASIC METABOLIC PANEL 2022-02-11 06:55:00 Test Item Value Reference Range Interpretation Comme nts SODIUM (test code = NA) 139 mmol/L 136-145 N Plea se note: New Reference Range Aug 2020 POTASSIUM (test code = K) 3.6 mmol/L 3.5-5.1 N CHLORIDE (test code = CL) 105 mmol/L 98-[address] ease note: New Reference Range Aug 2020 CARBON DIOXIDE (test code 25 mmol/L 20-[address] N Pl ease note: New Reference = CO2) Range Aug 2020 GLUCOSE (test code = GLU) 90 mg/dL 74-[address] ease note: New Reference Range Aug 2020 BLOOD UREA NITROGEN (test < 5 mg/dL 9-[address] ease note: New Reference code = [...] filt ration rate. CREATININE (test code = 0.60 mg/dL 0.70-1.30 L Plea se note: New Reference CREAT) Range Aug 2020 CALCIUM (test code = CA) 8.5 mg/dL 8.7-10.4 L Ple ase note: New Reference Range Aug 2020 [id number] 06:55:00 Test Item Value Reference Range Interpretation Comments MAGNESIUM (test code = 1.8 mg/dL 1.6-2.6 N Pleas e note: New MAG) Reference Range Aug 2020 CBC W/AUTO [id number] 06:27:00 Test Item Value Reference Range Interpretation Comments WHITE BLOOD CELL (test code = 12.6 x10 3/uL 4.8-10.8 H WBC) RED BLOOD CELL (test code = 4.29 x10 6/uL 4.70-6.10 L RBC) HEMOGLOBIN (test code = HGB) 13.3 g/dL 14.0-18.0 L HEMATOCRIT (test code = HCT) 39.5 % 42.0-52.0 L MEAN CELL VOLUME (test code = 92.1 fL 80.0-94.0 N MCV) MEAN CELL HGB (test code = MCH) 31.0 pg 27-31 N MEAN CELL HGB CONCENTRATION 33.7 G/DL 33-36.5 N (test code = MCHC) RED CELL DISTRIBUTION WIDTH 13.2 % 12.9-16.9 N (test code = RDW) PLATELET COUNT (test code = 531 x10 3/uL 150-440 H PLT) MEAN PLATELET VOLUME (test code 10.7 fL 8.9-12.4 N = MPV) NEUTROPHIL % (test code = NT%) 72.6 % 42.2-75.2 N LYMPHOCYTE % (test code = LY%) 12.6 % 20.5-51.1 L MONOCYTE % (test code = MO%) 9.7 % 1.7-9.3 H EOSINOPHIL % (test code = EO%) 3.2 % 0.0-7.0 N BASOPHIL % (test code = BA%) 0.6 % 0-2.5 N NEUTROPHIL # (test code = NT#) 9.15 x10 3/uL 1.80-7.70 H LYMPHOCYTE # (test code = LY#) 1.59 x10 3/uL 1.00-4.80 N MONOCYTE # (test code = MO#) 1.23 x10 3/uL 0.00-0.80 H EOSINOPHIL # (test code = EO#) 0.41 x10 3/uL 0.00-0.45 N BASOPHIL # (test code = BA#) 0.07 x10 3/uL 0.0-0.20 N VANCOMYCIN [id number] 04:25:00 Test Item Value Reference Range Interpretation Comments VANCOMYCIN TROUGH (test code = 15.5 mcg/dL 10.0-20.0 N VANCT) BASIC METABOLIC [id number] 04:55:00 Test Item Value Reference Range Interpretation Comments SODIUM (test code 139 mmol/L 136-145 N Please not e: New = NA) Reference Range Aug 2020 POTASSIUM (test 3.2 mmol/L 3.5-5.1 L code = K) CHLORIDE (test 105 mmol/L 98-107 N Please note: New code = CL) Reference Range Aug 2020 CARBON DIOXIDE 28 mmol/L 20-31 N Please note: New (test code = CO2) Reference Range Aug 2020 GLUCOSE (test code 107 mg/dL 74-106 H Please no te: New = GLU) Reference Range Aug 2020 BLOOD UREA < 5 mg/dL 9-23 L Please note: Ne w NITROGEN (test Reference [...] he glomerular filtration rate . CREATININE (test 0.50 mg/dL 0.70-1.30 L Please note : New code = CREAT) Reference Rang e Aug 2020 CALCIUM (test code 8.0 mg/dL 8.7-10.4 L Please no te: New = CA) Reference Range Aug 2020 [id number] 04:55:00 Test Item Value Reference Range Interpretation Comments MAGNESIUM (test code = 1.8 mg/dL 1.6-2.6 N Pleas e note: New MAG) Reference Range Aug 2020 CBC W/AUTO [id number] 04:52:00 Test Item Value Reference Range Interpretation Comments WHITE BLOOD CELL (test code = 15.0 x10 3/uL 4.8-10.8 H WBC) RED BLOOD CELL (test code = 3.83 x10 6/uL 4.70-6.10 L RBC) HEMOGLOBIN (test code = HGB) 12.0 g/dL 14.0-18.0 L HEMATOCRIT (test code = HCT) 34.5 % 42.0-52.0 L MEAN CELL VOLUME (test code = 90.1 fL 80.0-94.0 N MCV) MEAN CELL HGB (test code = 31.3 pg 27-31 H MCH) MEAN CELL HGB CONCENTRATION 34.8 G/DL 33-36.5 N (test code = MCHC) RED CELL DISTRIBUTION WIDTH 13.1 % 12.9-16.9 N (test code = RDW) PLATELET COUNT (test code = 507 x10 3/uL 150-440 H PLT) MEAN PLATELET VOLUME (test 10.2 fL 8.9-12.4 N code = MPV) NEUTROPHIL % (test code = NT%) 76.9 % 42.2-75.2 H LYMPHOCYTE % (test code = LY%) 9.8 % 20.5-51.1 L MONOCYTE % (test code = MO%) 9.0 % 1.7-9.3 N EOSINOPHIL % (test code = EO%) 2.4 % 0.0-7.0 N BASOPHIL % (test code = BA%) 0.4 % 0-2.5 N NEUTROPHIL # (test code = NT#) 11.51 x10 3/uL 1.80-7.70 H LYMPHOCYTE # (test code = LY#) 1.46 x10 3/uL 1.00-4.80 N MONOCYTE # (test code = MO#) 1.35 x10 3/uL 0.00-0.80 H EOSINOPHIL # (test code = EO#) 0.36 x10 3/uL 0.00-0.45 N BASOPHIL # (test code = BA#) 0.06 x10 3/uL 0.0-0.20 N VANCOMYCIN [id number] 04:44:00 Test Item Value Reference Range Interpretation Comments VANCOMYCIN TROUGH (test code = 14.9 mcg/dL 10.0-20.0 N VANCT) BASIC METABOLIC [id number] 04:46:00 Test Item Value Reference Range Interpretation Comments SODIUM (test code 138 mmol/L 136-145 N Please not e: New = NA) Reference Range Aug 2020 POTASSIUM (test 2.9 mmol/L 3.5-5.1 L code = K) CHLORIDE (test 104 mmol/L 98-107 N Please note: New code = CL) Reference Range Aug 2020 CARBON DIOXIDE 26 mmol/L 20-31 N Please note: New (test code = CO2) Reference Range Aug 2020 GLUCOSE (test code 111 mg/dL 74-106 H Please no te: New = GLU) Reference Range Aug 2020 BLOOD UREA 6 mg/dL 9-23 L Please note: Ne w NITROGEN (test Reference [...] he glomerular filtration rate . CREATININE (test 0.50 mg/dL 0.70-1.30 L Please note : New code = CREAT) Reference Rang e Aug 2020 CALCIUM (test code 7.4 mg/dL 8.7-10.4 L Please no te: New = CA) Reference Range Aug 2020 LIPID PROFILE (CORONARY RISK)2022-02-08 04:46:00 Test Item Value Reference Range Interpretation Comments TRIGLYCERIDES (test 72 mg/dL <150 N Please n ote: New code = TRIG) Reference Range Aug 2020 CHOLESTEROL (test code 109 mg/dL <200 N Pleas e note: New = CHOL) Reference Range Aug 2020 HDL CHOLESTEROL (test 21 mg/dL <60 N Please note: New code = HDL) Reference Range Aug 2020 LIPOPROTEIN LDL (test 83 mg/dL <100 N INTERP RETATIVE code = LDLC) DATA:LDL Choles terol: Reference RangesOptimal: <100 mg/dLNear Optim al: 100 -129 mg/dLBorde rline High: 130 - 159 mg/dLHigh: 160 - 189 mg/dLVery High: = or > 190 mg/dL CORONARY RISK FACTOR 5.19 CHOL/H DL RISK MALE: (test code = RISK) 1/2 AVG 3 .43 FEMALE: 1/2 AVG 3.27 AV G 4.97 AVG 4.44 2X AVG 9.55 2X AVG 7.05 3X AVG 23.39 3X AVG 11.04~~~~~~~~~~ ~~~~~~~ ~~~~~~~~~~~~~~~ ~~~~~~~ ~~~~~~~~~~~~~~~ ~~~~~~N ational Cholest shayna Education (NCEP ) Guidelines:~~~~ ~~~~~~~ ~~~~~~~~~~~~~~~ ~~~~~~~ ~~~~~~~~~~~~~~~ ~~~~~~~ ~~~~~ HDL Cholesterol<4 0mg/dL: HDL Cholesterol (Major risk factor for CHD)>60mg/dL: H DL Cholesterol (Ne gative risk factor for CHD)40-59mg/dL: Borderline Risk LDL Cholesterol<1 00mg/dL : Desirable LDL -C [id number] 0-159mg /dL: Borderline High Risk LDL-C [id number] 0-189mg /dL: High risk LDL-C concentration H DL-LDL Cholesterol is affected by a n umber of factors such as smoking, age an d sex.~~~~~~~~~~~ ~~~~~~~ ~~~~~~~~~~~~~~~ ~~~~~~~ ~~~~~~~~~~~~~~~ ~~~~~ LIVER FUNCTION [id number] 04:46:00 Test Item Value Reference Range Interpretation Comments TOTAL PROTEIN (test 4.9 g/dL 5.7-8.2 L Please n ote: New code = PROT) Reference Range Aug 2020 ALBUMIN (test code = 3.0 g/dL 3.2-4.8 L Please note: New ALB) Reference Range Aug 2020 BILIRUBIN TOTAL (test 0.5 mg/dL 0.3-1.2 N Please note: New code = BILT) Reference Range Aug 2020 BILIRUBIN DIRECT (test 0.3 mg/dL <0.3 N Pleas e note: New code = BILD) Reference Range Aug 2020 SGOT/AST (test code = 18 U/L <34 N Please note: New AST) Reference Range Aug 2020 SGPT/ALT (test code = 12 U/L 10-49 N Please note: New ALT) Reference Range Aug 2020 ALKALINE PHOSPHATASE 39 U/L 46-116 L Please note: New (test code = ALKP) Reference Range Aug 2020 [id number] 04:46:00 Test Item Value Reference Range Interpretation Comments AMYLASE (test code = 150 U/L 30-118 H Please note: New DOMINGO) Reference Range Aug 2020 [id number] 04:46:00 Test Item Value Reference Range Interpretation Comments LIPASE (test code = 143 U/L 12-53 H Please n ote: New LIP) Reference Range Aug 2020 CBC W/AUTO [id number] 04:40:00 Test Item Value Reference Range Interpretation Comments WHITE BLOOD CELL (test code = 15.0 x10 3/uL 4.8-10.8 H WBC) RED BLOOD CELL (test code = 4.01 x10 6/uL 4.70-6.10 L RBC) HEMOGLOBIN (test code = HGB) 12.4 g/dL 14.0-18.0 L HEMATOCRIT (test code = HCT) 35.9 % 42.0-52.0 L MEAN CELL VOLUME (test code = 89.5 fL 80.0-94.0 N MCV) MEAN CELL HGB (test code = 30.9 pg 27-31 N MCH) MEAN CELL HGB CONCENTRATION 34.5 G/DL 33-36.5 N (test code = MCHC) RED CELL DISTRIBUTION WIDTH 12.9 % 12.9-16.9 N (test code = RDW) PLATELET COUNT (test code = 450 x10 3/uL 150-440 H PLT) MEAN PLATELET VOLUME (test 10.0 fL 8.9-12.4 N code = MPV) NEUTROPHIL % (test code = NT%) 79.2 % 42.2-75.2 H LYMPHOCYTE % (test code = LY%) 8.9 % 20.5-51.1 L MONOCYTE % (test code = MO%) 8.5 % 1.7-9.3 N EOSINOPHIL % (test code = EO%) 2.0 % 0.0-7.0 N BASOPHIL % (test code = BA%) 0.4 % 0-2.5 N NEUTROPHIL # (test code = NT#) 11.88 x10 3/uL 1.80-7.70 H LYMPHOCYTE # (test code = LY#) 1.33 x10 3/uL 1.00-4.80 N MONOCYTE # (test code = MO#) 1.28 x10 3/uL 0.00-0.80 H EOSINOPHIL # (test code = EO#) 0.30 x10 3/uL 0.00-0.45 N BASOPHIL # (test code = BA#) 0.06 x10 3/uL 0.0-0.20 N BASIC METABOLIC [id number] 05:47:00 Test Item Value Reference Range Interpretation Comments SODIUM (test code 141 mmol/L 136-145 N Please not e: New = NA) Reference Range Aug 2020 POTASSIUM (test 3.4 mmol/L 3.5-5.1 L code = K) CHLORIDE (test 107 mmol/L 98-107 N Please note: New code = CL) Reference Range Aug 2020 CARBON DIOXIDE 27 mmol/L 20-31 N Please note: New (test code = CO2) Reference Range Aug 2020 GLUCOSE (test code 94 mg/dL 74-106 N Please no te: New = GLU) Reference Range Aug 2020 BLOOD UREA 13 mg/dL 9-23 N Please note: Ne w [...] he glomerular filtration rate . CREATININE (test 0.50 mg/dL 0.70-1.30 L Please note : New code = CREAT) Reference Rang e Aug 2020 CALCIUM (test code 8.2 mg/dL 8.7-10.4 L Please no te: New = CA) Reference Range Aug 2020 [id number] 05:47:00 Test Item Value Reference Range Interpretation Comments MAGNESIUM (test code = 1.8 mg/dL 1.6-2.6 N Pleas e note: New MAG) Reference Range Aug 2020 - XR ABDOMEN [id number] 08:37:00 [facility] 1955 Sex: MPatient Name: MARGARET WEEMS Unit No: [id number] EXAMS: CPT CODE: [id number] XR ABDOMEN 1V 10089 Abdomen (KUB) History: abdominal exam Comparison: February 02, 2022 Location: [facility] Number of images: 1 There are dilated air-filled loops of [...] and signed by: CARLOS JIMENEZ M.D. CC: Jeff Oates MD; Casper Blanco DO Technologist: Galo Keyes RT (R), (CT) Fluoro Time: DAP (Gy m2): Air Kerma (mGy): Trscr Dt/Tm: 02/04/2022 (0837) by:[email or web address] Printed Date/Time: 02/04/2022 (5913)Name: MARGARET WEEMS JR [facility] Phys: Casper Esqueda DO [address] : 1955 Age: 66 Sex: [place] [address] Loc: P.0576 1 Exam Date: 02/04/2022 Status: ADM IN PH: FAX: PAGE 1 Signed ReportBASIC METABOLIC [id number] 05:03:00 Test Item Value Reference Range Interpretation [...] New = CA) Reference Range Aug 2020 [id number] 05:03:00 Test Item Value Reference Range Interpretation Comments MAGNESIUM (test code = 2.0 mg/dL 1.6-2.6 N Pleas e note: New MAG) Reference Range Aug 2020 - XR CHEST 1 [id number] 08:55:00 [facility] : 1955 Sex: MPatient Name: MARGARET WEEMS JR Unit No: [id number] EXAMS: CPT CODE: [id number] XR CHEST 1 V 27787 Chest Radiograph History: NG TUBE PLACEMENT Comparison: February 02, 2022 Location: [facility] A single frontal view of the chest [...] MD; Casper Blanco DO Technologist: Chelsey Barillas RT (R) Fluoro Time: DAP (Gy m2): Air Kerma (mGy): Trscr Dt/Tm: 02/03/2022 (0855) by:[email or web address] Printed Date/Time: 02/03/2022 (0859) Name: MARGARET WEEMS [facility] Phys: Casper Esqueda DO [address] : 1955 Age: 66 Sex: [place] [address] Loc: P.0576 1 Exam Date: 02/03/2022 Status: ADM IN PH: FAX: PAGE 1 Signed ReportBASIC METABOLIC [id number] 04:13:00 Test Item Value Reference Range Interpretation [...] New = CA) Reference Range Aug 2020 [id number] 04:13:00 Test Item Value Reference Range Interpretation Comments PHOSPHOROUS (test code 3.5 mg/dL 2.4-5.1 N Pleas e note: New = PHOS) Reference Range Aug 2020 [id number] 04:13:00 Test Item Value Reference Range Interpretation Comments MAGNESIUM (test code = 1.9 mg/dL 1.6-2.6 N Pleas e note: New MAG) Reference Range Aug 2020 CBC W/AUTO [id number] 03:51:00 Test Item Value Reference Range Interpretation [...] 3/uL 0.0-0.20 N - XR CHEST 1 [id number] 17:41:00 [facility] : 1955 Sex: MPatient Name: MARGARET WEEMS JR Unit No: [id number] EXAMS: CPT CODE: [id number] XR CHEST 1 V 22979 EXAM: - XR CHEST 1 V, - [...] and signed by: BRIANNA MELLO M.D. CC: Jorge Galeano MD Technologist: Brie Gutiérrez Time: DAP (Gy m2): Air Kerma (mGy): Trscr Dt/Tm: 02/02/2022 (174) by:[email or web address] Printed Date/Time: 02/02/2022 (1745) Name: MARGARET WEEMS JOHANNY MAXWELL [facility] Phys: Jorge Montes MD [address] : 1955 Age: 66 Sex: [place] [address] Loc: P.0576 1 Exam Date: 02/02/2022 Status: ADM IN PH: FAX: PAGE 1 Signed Report- XR ABDOMEN [id number] 17:41:00[facility] : 1955 Sex: MPatient Name: MARGARET WEEMS JR Unit No: [id number] EXAMS: CPT CODE: [id number] XR ABDOMEN 1V 07546 EXAM: - XR CHEST 1 V, - XR ABDOMEN 1V HISTORY: Pain. Post surgery. COMPARISON: February 01, 2022. FINDINGS: Single portable view of the chest and abdomen is provided. Heart size and vascularityare within normal limits. There is no evidence of a focal consolidation. There is no pleural effusion or pneumothorax. Nasogastric tube is projecting over the distal stomach. Cholecystectomy clips is present. Gas-filled distended loops of bowel as before. There is no definite acute osseous abnormality. IMPRESSION: Gas distended bowel may represent obstruction or ileus. at 1741 Reported and signed by: BRIANNA MELLO M.D. CC: Jorge Oates MD; Casper Blanco DO Technologist: Brie Gutiérrez Time: DAP (Gy m2): Air Kerma (mGy): Trscr Dt/Tm: 02/02/2022 (1741) by:[email or web address] Printed Date/Time: 02/02/2022 (1745) Name: MARGARET WEEMS JR [facility] Phys: Casper Esqueda DO [address] : 1955 Age: 66 Sex: [place] [address] Loc: P.0576 1 Exam Date:02/02/2022 Status: ADM IN PH: FAX: PAGE 1 Signed Report- XR ABDOMEN 1V 2022-02-02 10:08:00 [facility] : 1955 Sex: MPatient Name: MARGARET WEEMS JR Unit No: [id number] EXAMS: CPT CODE: [id number] XR ABDOMEN 1V 83813 Location code: B2 Abdomen one view HISTORY: [...] may suggest a partial small bowel obstruction orileus at 1008 Reported and signed by: Yong Castle M.D. CC: Technologist: Brie Gutiérrez Time: DAP (Gy m2): Air Kerma (mGy): Trscr Dt/Tm: 02/02/2022 (1008) by:[email or web address] Printed Date/Time: 02/02/2022 (1011) Name: MARGARET WEEMS [facility] Phys: Jose Butts [address] : 1955 Age: 66 Sex: [place] [address] Loc: P.ERS Exam Date: 02/02/2022 Status: REG ER PH: FAX: PAGE 1 Signed ReportBASIC METABOLIC [id number] 10:02:00 Test Item Value Reference Range Interpretation [...] CA) Reference Range Aug 2020 LIVER FUNCTION [id number] 10:02:00 Test Item Value Reference Range Interpretation [...] code = ALKP) Reference Range Aug 2020 [id number] 10:02:00 Test Item Value Reference Range Interpretation Comments LIPASE (test code = 70 U/L 12-53 H Please n ote: New LIP) Reference Range Aug 2020 CBC W/AUTO [id number] 09:34:00 Test Item Value Reference Range Interpretation [...] 3/uL 0.0-0.20 N - CT ABD PELVIS [id number] 15:49:00 [facility] JOHANNY : 1955 Sex: MPatient Name: MARGARET WEEMS JR Unit No: [id number] EXAMS: CPT CODE: [id number] CT ABD PELVIS W/CONT 10713 EXAM: - CT ABD PELVIS W/CONT HISTORY: Post colectomy. TECHNIQUE: Axial tomogramsthrough the abdomen and pelvis were obtained after [...] by: BRIANNA MELLO M.D. Name: MARGARET WEEMS [facility] Phys: Lucian Castle MD [address] : 1955 Age: 66 Sex: M [place] [address] Loc: P.ERS Exam Date: 02/01/2022 Status: REG ER PH: FAX: PAGE 1 Signed Report (CONTINUED) Patient Name: MARGARET WEEMS JR Unit No: [id number] EXAMS: CPTCODE: [id number] CT ABD PELVIS W/CONT 70024 <Continued> CC: Lucian Orosco MD Technologist: NILAM SAMANO RT (R),(CT) CTDI: 8.57 DLP: 600.77 Trscr Dt/Tm: 02/01/2022 (1549) by:[email or web address] Printed Date/Time: 02/01/2022 (314) Name: MARGARET WEEMS JOHANNY [facility] Phys: Lucian Castle MD [address] : 1955 Age: 66 Sex: M [place] [address] Loc: P.ERS Exam Date: 02/01/2022 Status: REG ER PH: FAX: PAGE 2 Signed ReportUA RFLX MICR CULT IF [id number] 14:29:00 Test Item Value Reference Range Interpretation [...] SQU) Indication for culture: Suprapubic PainBASIC METABOLIC [id number] 14:04:00 Test Item Value Reference Range Interpretation [...] CA) Reference Range Aug 2020 LIVER FUNCTION [id number] 14:04:00 Test Item Value Reference Range Interpretation [...] code = ALKP) Reference Range Aug 2020 [id number] 14:04:00 Test Item Value Reference Range Interpretation Comments LIPASE (test code = 61 U/L 12-53 H Please n ote: New LIP) Reference Range Aug 2020 CBC W/AUTO [id number] 13:36:00 Test Item Value Reference Range Interpretation [...] = BA#) 0.02 x10 3/uL 0.0-0.20 N [id number] 12:37:00 Test Item Value Reference Range Interpretation Comments SURGICAL (test code = SR) RUN DATE: 01/31/22 [facility] - LAB PAGE 1 RUN TIME: 1237 Specimen Inquiry RUN USER: INTERFACE SCOTTIE ENT: MARGARET WEEMS JR LOC: PDenise5N POD B U #: [id number] AGE/SX: 66/M ROOM: [facility] RE01/27/22REG DR: Michelle Mendez MD : 53 BED: 1 DIS: 01/30/22 STATUS: DIS IN TLOC: SPEC #: [id number] RECD: 01/28/22 STATUS: PATTIE REJorge #: [id number] MIKEY: 01/27/[address]: Michelle Mendez MD ENTERED: 01/28/22 SP TYPE: SURGICAL OTHR DR: Quentin Provider ORDERED: [id number], [id number], 60948/4, ANATOMIC SPEC HISTOLOGY: TISSUE ID [id number] PCS [...] CONTINUED ON NEXT PAGE RUN DATE: 01/31/22 [facility] - LAB PAGE 2 RUN TIME: 1237 Specimen Inquiry RUN USER: INTERFACE SPEC #: [id number] PATIENT: MARGARET WEEMS JR #[id number] (Continued) ------- CAP CANCER SUMMARY (Continued) PATHOLOGIC [...] is probably not indicated; absence of both HWE0bzuehlaaior and of BRAF V600E mutation suggests the [...] CONTINUED ON NEXT PAGE RUN DATE: 01/31/22 [facility] - LAB PAGE 3 RUN TIME: 1237 Specimen Inquiry RUN USER: INTERFACE SPEC #: [id number] PATIENT: WEEMSMARGARET ARNLOD JR #[id number] (Continued) ------- GROSS DESCRIPTION (Continued) The mucosal [...] cassette B. TRAY/layla Technical component performed at [facility] [facility], [facility], [address] Unless gross only, the diagnosis is based [...] COLON CARCINOMA ----- Signed SIGNATURE ON FILE Guerrero Topete 01/31/22 1237 END OF REPORT BASIC METABOLIC [id number] 04:30:00 Test Item Value Reference Range Interpretation [...] New = CA) Reference Range Aug 2020 [id number] 04:30:00 Test Item Value Reference Range Interpretation Comments MAGNESIUM (test code = 2.0 mg/dL 1.6-2.6 N Pleas e note: New MAG) Reference Range Aug 2020 CBC W/AUTO [id number] 04:18:00 Test Item Value Reference Range Interpretation [...] 0.03 x10 3/uL 0.0-0.20 N BASIC METABOLIC [id number] 05:44:00 Test Item Value Reference Range Interpretation [...] New = CA) Reference Range Aug 2020 [id number] 05:44:00 Test Item Value Reference Range Interpretation Comments MAGNESIUM (test code = 2.1 mg/dL 1.6-2.6 N Pleas e note: New MAG) Reference Range Aug 2020 CBC W/AUTO [id number] 05:36:00 Test Item Value Reference Range Interpretation [...] 0.03 x10 3/uL 0.0-0.20 N BASIC METABOLIC [id number] 05:53:00 Test Item Value Reference Range Interpretation [...] New = CA) Reference Range Aug 2020 [id number] 05:53:00 Test Item Value Reference Range Interpretation Comments MAGNESIUM (test code = 1.7 mg/dL 1.6-2.6 N Pleas e note: New MAG) Reference Range Aug 2020 COMPREHENSIVE METABOLIC [id number] 12:15:00 Test Item Value Reference Range Interpretation [...] Range Feb code = ALKP) 2020 AG [id number] 12:15:00 Test Item Value Reference Range Interpretation Comments AG CARCINOEMBRYONIC (test 2.32 ng/mL 0.0-3.[address] ease note: New code = CEA) Reference Range Aug 2020 PROTHROMBIN [id number] 12:06:00 Test Item Value Reference Range Interpretation [...] 2.5-3.5recurren t systemic emboli sm. THROMBOPLASTIN TIME [id number] 12:06:00 Test Item Value Reference Range Interpretation Comments THROMBOPLASTIN TIME 30.1 SECONDS 23.8-34.8 N INTERPRE TATIVE PARTIAL (test code = DATA: erapeutic PTT) range: Unfractionated heparin:55 - 80 seconds Argatroban:1.5 to 3 times the basel ine PTT CBC W/AUTO [id number] 11:53:00 Test Item Value Reference Range Interpretation [...]
[2022-02-17 15:17] LABS: Absolute Lymphocytes (CBC) 1.6 K/uL (0.7-4.9); Hematocrit 41.6 % (39.6-49.0); Lymphocytes % 10.9 % (15.3-44.8); MCV 91.1 fL (80-100); MPV 7.9 fL (7.6-11.3); RBC Red Blood Cell Count 4.57 M/uL (4.33-5.43)
[2022-02-17 15:41] LABS: Urine Bacteria <20 /HPF (<20); Urine Mucus 2+ /HPF (None Seen); Urine RBC <5 /HPF (None Seen)
[2022-02-17 15:42] LABS: Albumin 3.3 g/dL (3.4-5.0); Bilirubin Total 0.7 mg/dL (0.2-1.0); Potassium 4.6 mmol/L (3.5-5.1)
--- NOTE | 2022-02-17 16:49 | RAD REPORT ---
EXAM DESCRIPTION: CT - Abdomen Pelvis W Contrast - 02/17/2022 4:15 pm CLINICAL HISTORY: Abdominal pain/vomiting COMPARISON: February 07, 2022 TECHNIQUE: Computed axial tomography of the abdomen pelvis was obtained. 100 cc Isovue-300 was admin istered intravenously. Oral contrast was not requested which limits evaluation of bowel and appendix All CT scans are performed using dose optimization technique as appropriate and may include automated exposure control or mA/KV adjustment according to patient size. FINDINGS: A 15 millimeter hepatic lesion is stable Liver, spleen, pancreas and adrenals unremarkable. Small renal cysts. Right colectomy. Small amount of ill-defined fluid within the right pericolic gutter. Stranding withi n fat. Air and small amount of fluid within the posterior subcutaneous fat anterior to the rectus muscles wi thin the pelvis. Surgical defect is present extending from the skin into the subcutaneous fat No evidence of diverticulitis IMPRESSION: Right colectomy. Small amount of fluid within the right paracolic gutter. No well-formed abscess. Air and small amount of fluid within anterior subcutaneous fat of the pelvis. This may all postsurgic al in nature. Another consideration is that the fluid is infected. However, there is no significant d rainable fluid collection.
--- NOTE | 2022-02-17 18:39 | ER ---
Nurse's Notes [facility] Name: Haroldo Castillo Jr Age: 66 yrs Sex: Male : 1955 Arrival Date: 02/17/2022 Time: 12:14 Bed 8 Private MD: Ed Wang E Diagnosis: Vomiting;Unspecified open wound of abdominal wall, unspecified quadrant without penetration into peritoneal cavity, sequela Presentation: 02/17 13:29 Chief complaint: Patient states: Had colon resection on 01/27, states that incision ph became infected so he started taking doxycycline yesterday, woke up last night and vomited 1 time. Denies fever, denies nausea at this time, states that he is having normal BM. Coronavirus screen: Vaccine status: Patient reports receiving the 2nd dose of the covid vaccine. Ebola Screen: No symptoms or risks identified at this time. Initial Sepsis Screen: Does the patient meet any 2 criteria? No. Patient's initial sepsis screen is negative. Does the patient have a suspected source of infection? Yes: Skin breakdown/wound. Risk Assessment: Do you want to hurt yourself or someone else? Patient reports no desire to harm self or others. Onset of symptoms was February 17, 2022. 13:29 Method Of Arrival: Ambulatory 13:29 Acuity: VIKTOR 3 ph Historical: - Allergies: 13:35 No Known Allergies; ph - PMHx: 13:35 colon cancer; Hypertensive disorder; ph - PSHx: 13:35 Cholecystectomy; ph - Immunization history:: Adult Immunizations up to date. - Social history:: Smoking status: Patient denies any tobacco usage or history of. Screenin:36 Abuse screen: Denies threats or abuse. Nutritional screening: No deficits noted. ll1 Tuberculosis screening: No symptoms or risk factors identified. Fall Risk IV access (20 points). Total Kang Fall Scale indicates No Risk (0-24 pts). Assessment: 16:35 General: Appears in no apparent distress. Behavior is calm, cooperative, appropriate ll1 for age. Pain: Denies pain. Neuro: No deficits noted. Cardiovascular: No deficits noted. GI: Abdomen is round Bowel sounds present X 4 quads. Reports cramping, nausea, vomiting. 17:02 Reassessment: No changes from previously documented assessment. Patient and/or family ll1 updated on plan of care and expected duration. Pain level reassessed. Patient is alert, oriented x 3, equal unlabored respirations, skin warm/dry/pink. 18:00 Reassessment: No changes from previously documented assessment. Patient and/or family ll1 updated on plan of care and expected duration. Pain level reassessed. Vital Signs: 13:29 BP 108 / 65; Pulse 72; Resp 18; Temp 98.3; Pulse Ox 100% on R/A; Weight 88 kg; Height 5 ph ft. 8 in. (172.72 cm); 16:33 BP 129 / 71; Pulse 64; Resp 17; Pulse Ox 100% ; Pain 0/10; ll1 18:19 BP 121 / 68; Pulse 60; Resp 16; Pulse Ox 100% ; ll1 18:49 BP 121 / 71; Pulse 58; Resp 16; Pulse Ox 100% ; Pain 0/10; ll1 13:29 Body Mass Index 29.50 (88.00 kg, 172.72 cm) ph ED Course: 12:14 Patient arrived in ED. am2 12:14 Ed Wang MD is Private Physician. am2 12:19 Bryce Domingo PA is PHCP. cp 12:19 Delvin Nunes DO is Attending Physician. cp 13:35 Triage completed. ph 13:35 Arm band placed on Patient placed in waiting room, Patient notified of wait time. ph 16:17 CT Abd/Pelvis - IV Contrast Only In Process Unspecified. EDMS 16:29 Patient placed in an exam room, on a stretcher. ll1 16:30 Chavez Pulido, YENI is Primary Nurse. ll1 16:30 IV is patent, with fluids infusing freely. ll1 16:36 Patient has correct armband on for positive identification. Bed in low position. Call ll1 light in reach. Side rails up X 1. Client placed on continuous cardiac and pulse oximetry monitoring. NIBP monitoring applied. 16:54 Wound Culture Sent. ll1 16:59 Wound care: to abdominal incision located on abdomen was packed with wet Kerlix gauze. ll1 Fluff sponges secured with abdominal dressing pad. Secured with paper tape. Tolerated dressing well. 18:50 IV discontinued, intact, bleeding controlled, No redness/swelling at site. Pressure ll1 dressing applied. 18:51 No provider procedures requiring assistance completed. ll1 Administered Medications: 18:51 Not Given (Patient Refused): Zofran (Ondansetron) 4 mg IVP once; over 2 minutes ll1 Medication: 16:36 VIS not applicable for this client. ll1 Outcome: 18:38 Discharge ordered by . tasha 18:51 Discharged to home ambulatory. ll1 18:51 Condition: stable 18:51 Discharge instructions given to patient, Instructed on discharge instructions, follow up and referral plans. medication usage, Demonstrated understanding of instructions, follow-up care, medications, Prescriptions given X 1. 18:52 Patient left the ED. 1 Signatures: Dispatcher [employer] EDMS Brie Tejeda, RN RN Bryce Gonzalez PA PA Marisol Rendon Lynsay, RN RN 1
--- NOTE | 2022-02-17 18:40 | EDPHYS ---
Physician Documentation [facility] Name: Haroldo Castillo Jr Age: 66 yrs Sex: Male : 1955 Arrival Date: 02/17/2022 Time: 12:14 Bed 8 Private MD: Ed Wang E ED Physician Delvin Nunes HPI: 02/17 13:35 This 66 yrs old Male presents to ER via Ambulatory with complaints of Back Pain, cp Vomiting, Post Surgical Pain. 13:35 The patient presents to the emergency department with vomiting, 1 times today, cp described as bilious, abdominal pain, of the lower mid abdomen. Patient presents to ED with complaints of lower abdomen pain this morning, 1 episode of vomiting. Patient reports colon resection surgery performed by DR Mendez on 01-27-2022. Developed infection of surgical area and subsequently wound was opened and has been packed with gauze and patient has been taking oral Doxycycline for about 1 week. Patient reports taking antibiotic this morning and then vomiting once. Patient contacted office of DR Mendez and he was told go to ED for evaluation. Historical: - Allergies: 13:35 No Known Allergies; ph - PMHx: 13:35 colon cancer; Hypertensive disorder; ph - PSHx: 13:35 Cholecystectomy; ph - Immunization history:: Adult Immunizations up to date. - Social history:: Smoking status: Patient denies any tobacco usage or history of. ROS: 13:40 Constitutional: Negative for body aches, chills, fever, poor PO intake. cp 13:40 Eyes: Negative for injury, pain, redness, and discharge. cp 13:40 Cardiovascular: Negative for chest pain, palpitations. 13:40 Respiratory: Negative for cough, shortness of breath, wheezing. 13:40 Abdomen/GI: Positive for abdominal pain, vomiting, Negative for diarrhea, constipation. 13:40 : Negative for urinary symptoms. 13:40 Neuro: Negative for altered mental status, dizziness, headache, weakness. 13:40 All other systems are negative. Exam: 13:45 Constitutional: The patient appears in no acute distress, alert, awake, cp non-diaphoretic, non-toxic, well developed, well nourished. 13:45 Head/Face: Normocephalic, atraumatic. cp 13:45 Eyes: Periorbital structures: appear normal, Conjunctiva: normal, no exudate, no cp injection, Sclera: no appreciated abnormality, Lids and lashes: appear normal, bilaterally. 13:45 ENT: External ear(s): are unremarkable, Nose: is normal, Mouth: Lips: moist, Oral mucosa: pink and intact, moist, Posterior pharynx: Airway: no evidence of obstruction, patent. 13:45 Chest/axilla: Inspection: normal. 13:45 Cardiovascular: Rate: normal, Rhythm: regular, Edema: is not appreciated, JVD: is not appreciated. 13:45 Respiratory: the patient does not display signs of respiratory distress, Respirations: cp normal, no use of accessory muscles, no retractions, labored breathing, is not present, Breath sounds: decreased breath sounds, are not appreciated, stridor, is not appreciated. 13:45 Abdomen/GI: Inspection: packed open wound mid lower abdomen with mild surrounding erythema and mild purulent drainage, Bowel sounds: active, all quadrants, Palpation: abdomen is soft and non-tender, in all quadrants. 13:45 Back: pain, is absent, ROM is normal. 13:45 Neuro: Orientation: to person, place \T\ time. Mentation: is normal, Motor: moves all fours, strength is normal, Gait: is steady, at a normal pace, without difficulty. Vital Signs: 13:29 BP 108 / 65; Pulse 72; Resp 18; Temp 98.3; Pulse Ox 100% on R/A; Weight 88 kg; Height 5 ph ft. 8 in. (172.72 cm); 16:33 BP 129 / 71; Pulse 64; Resp 17; Pulse Ox 100% ; Pain 0/10; ll1 18:19 BP 121 / 68; Pulse 60; Resp 16; Pulse Ox 100% ; ll1 18:49 BP 121 / 71; Pulse 58; Resp 16; Pulse Ox 100% ; Pain 0/10; ll1 13:29 Body Mass Index 29.50 (88.00 kg, 172.72 cm) ph MDM: 16:32 Patient medically screened. cp 17:10 Physician consultation: was called at 17:09, regarding consult, patient's condition, cp attempt to contact DR Mendez, left msg on voicemail. 17:59 ED course: left msg on voicemail for DR Mendez. cp 18:38 Data reviewed: vital signs, nurses notes, lab test result(s), radiologic studies, CT cp scan. 18:38 Differential diagnosis: bowel obstruction, sepsis. Counseling: I had a detailed cp discussion with the patient and/or guardian regarding: the historical points, exam findings, and any diagnostic results supporting the discharge/admit diagnosis, lab results, radiology results, the need for outpatient follow up, colorectal surgery, to return to the emergency department if symptoms worsen or persist or if there are any questions or concerns that arise at home. ED course: VSS. Sister reports wound infection improving. Will discharge to home for continued monitoring. 02/17 13:31 Order name: CBC with Diff; Complete Time: 16:36 cp 02/17 16:36 Interpretation: Normal except: WBC 14.70; PLT 625; ERIKA% 80.3; LYM% 10.9; NEUT A 11.8. 02/17 13:31 Order name: CMP; Complete Time: 16:36 02/17 16:57 Interpretation: Normal except: NA 134; GLUC 115; GFR 88; CA 9.8; TP 8.0; ALB 3.3; GLOB cp 4.7; A/G 0.7. 02/17 13:31 Order name: Lipase; Complete Time: 16:36 cp 02/17 18:39 Interpretation: Abnormal: LIP 506. 02/17 13:31 Order name: Urine Microscopic Only; Complete Time: 16:36 02/17 15:44 Order name: Urine Culture EDOH 02/17 16:37 Order name: Wound Culture 02/17 13:31 Order name: CT Abd/Pelvis - IV Contrast Only; Complete Time: 16:56 02/17 13:31 Order name: IV Saline Lock; Complete Time: 16:33 cp 02/17 13:31 Order name: Labs collected and sent; Complete Time: 16:33 cp 02/17 13:31 Order name: Urine Dipstick-Ancillary (obtain specimen); Complete Time: 16:33 02/17 16:35 Order name: Dressing - Wound: dressing change and repacking; Complete Time: 16:54 cp Administered Medications: 18:51 Not Given (Patient Refused): Zofran (Ondansetron) 4 mg IVP once; over 2 minutes ll1 Disposition: 22:04 Co-signature as Attending Physician, Delvin Nunes DO I was immediately available on-site ms3 in the Emergency Department for consultation in the care of the patient.. Disposition Summary: 02/17/22 18:38 Discharge Ordered Location: Home cp Problem: new cp Symptoms: have improved cp Condition: Stable cp Diagnosis - Vomiting cp - Unspecified open wound of abdominal wall, unspecified quadrant without penetration cp into peritoneal cavity, sequela Followup: cp - With: Private Physician - When: 2 - 3 days - Reason: Wound Recheck Discharge Instructions: - Discharge Summary Sheet cp Forms: - Medication Reconciliation Form cp - Thank You Letter cp - Antibiotic Education cp - Prescription Opioid Use cp Prescriptions: - Zofran 4 mg Oral Tablet - take 1 tablet by ORAL route every 12 hours As needed; 6 tablet; Refills: 0, cp Product Selection Permitted Signatures: Dispatcher [employer] EDMS Brie Tejeda RN RN ph Bryce Domingo PA PA cp Sims, Marcus, DO DO ms3 Chavez Pulido RN ll1 Corrections: (The following items were deleted from the chart) 16:36 16:36 Normal except: WBC 14.70. cp cp 16:36 16:36 Normal except: WBC 14.70; PLT 625; ERIKA% 80.3; LYM% 10.9. cp cp 16:57 16:57 Normal except: NA 134; GLUC 115; GFR 88; CA 9.8; TP 8.0. cp cp 02/18 18:04 02/17 13:35 Patient presents to ED with complaints of lower abdomen pain this morning, cp 1 episode of vomiting. Patient reports colon resection surgery performed by DR Mendez on 01-27-2022. Developed infection of surgical area and subsequently wound was opened and has been packed with gauze and patient has been taking oral Doxycycline for about 1 week. Patient reports taking antibiotic this morning and then vomiting once. cp
[2022-02-17 20:15] VITALS: TEMP 98.3; O2SAT 100
[2022-02-17 20:22] VITALS: BP 121/71
== END 2022-02-17 18:52 | disposition home or self-care (01) ==
LOC: ER 12:10
DX: R11.10 Vomiting, unspecified (principal); G89.18 Other acute postprocedural pain; S31.109A Unspecified open wound of abdominal wall, unspecified quadrant without penetration into peritoneal cavity, initial encounter; I10 Essential (primary) hypertension; Z85.038 Personal history of other malignant neoplasm of large intestine
CPT/HCPCS: 87088; 87070; 85025; 87086; 36415; 87205; 81015; 83690; 80053; 74177; Q9967; 99284

== ENCOUNTER 2022-05-30 09:14 | Emergency (ER) | payer MEDICARE ==
--- OUTSIDE RECORDS SUMMARY | 2022-05-30 09:18 | XMS REPORT | Continuity of Care Document ---
:1955 Author Organization [facility] t Address [address] [place] [address] Care Team Providers Name Role Phone Flor Escobar MD Attending Clinician [phone] [place] [address] Ct Room Attending Clinician Unavailable FLOR ESCOBAR Attending Clinician Unavailable FLOR ESCOBAR Attending Clinician Unavailable Butch Scott Attending Clinician Unavailable Suzie Austin Attending Clinician [phone] Jorge Oates Attending Clinician Unavailable Lucian Orosco Attending Clinician Unavailable Yobany Mendez Attending Clinician Unavailable Yobany Mendez MD Attending Clinician Butch Scott Admitting Clinician Unavailable Physician, No Primary or Family Admitting Clinician UnavailJorge Fay Admitting Clinician Unavailable UNDEFINED Admitting Clinician Unavailable Yobany Mendez Admitting Clinician Unavailable Payers Payer Name Policy Type Policy Number Effective Date Expiration Date S neelce [employer] [id number] [employer] [id number] 2021 (MEDICARE 00:00:00 REPLACEMENT HMO) Problems This patient has no known problems. Allergies, Adverse Reactions, Alerts Allergy Allergy Status Severity Reaction(s) Onset Inactive Treating Comm ents Source Name Type Date Date Clinician No Known DA Active U [facility] 01-22 [facility] 00:00: [facility] 00 [facility] Social History Social Habit Start Date Stop Date Quantity Comments Source Sex Ass[birth year] At [birth year] [facility]:00 [facility] Smoking Status Start Date Stop Date Source Tobacco smoking consumption unknown [facility] [place] Medications This patient has no known medications. Procedures Procedure Date / Time Performing Clinician Source Performed AMB REF TO GENETICS 2022-05-13 16:49:56 [facility] COUNSELOR (CANCER) Medicine HEPATITIS B VIRAL DNA 2022-05-13 09:30:11 [facility] PCR Medicine HEPATITIS B SURFACE 2022-05-13 08:41:00 [facility] ANTIGEN Medicine HEP B CORE ANTIBODY, 2022-05-13 08:41:00 [facility] TOTAL [facility] HEPATITIS B SURFACE AB 2022-05-13 08:41:00 [facility] HEPATITIS C ANTIBODY 2022-05-13 08:41:00 [facility] COMPREHENSIVE METABOLIC 2022-05-13 08:41:00 [facility] HCG, QUALITATIVE, URINE 2022-05-13 08:41:00 [facility] CBC W/AUTO DIFF WITH 2022-05-13 08:41:00 [facility] PLATELETS [facility] CBC W ABSOLUTE 2022-05-13 06:22:30 [facility] NEUTROPHIL COUNT Medicine CEA 2022-05-13 06:22:30 [facility] MAGNESIUM 2022-05-13 06:22:30 [facility] Medicine HEPATITIS C ANTIBODY 2022-04-29 11:30:00 [facility] HEPATITIS B SURFACE AB 2022-04-29 11:30:00 [facility] HEPATITIS B SURFACE 2022-04-29 11:30:00 [facility] ANTIGEN Medicine HEP B CORE ANTIBODY, 2022-04-29 11:30:00 [facility] TOTAL [facility] CBC W/AUTO DIFF WITH 2022-04-29 11:30:00 [facility] PLATELETS [facility] COMPREHENSIVE METABOLIC 2022-04-29 11:30:00 [facility] PANEL Medicine CEA 2022-04-29 11:30:00 [facility] Medicine [id number] 2022-02-03 00:00:00 REYMUNDO [facility] [id number] 2022-01-27 00:00:00 [facility] [id number] 2022-01-27 00:00:00 [facility] [id number] 2022-01-27 00:00:00 [facility] [id number] 2022-01-27 00:00:00 HAAER [facility] MRI ABD/PELVIC EXTERNAL 2021-12-17 14:36:[address] [facility] STUDY CT LOWER EXTREMITY 2021-12-05 20:26:00 MendezYobany rodriguez [facility] EXTERNAL STUDY CT ABD/PELVIC EXTERNAL 2021-12-05 20:26:00 Yobany Mendez [facility] STUDY Plan of Care Planned Activity Planned Date Details Comments Source Future Scheduled 2022-05-19 HEPATITIS B VACCINES [facility] Test 09:19:23 (1 of 3 - 3-dose series) [code = HEPATITIS B VACCINES (1 of 3 - 3-dose series)] Future Scheduled 2022-05-19 COVID-19 VACCINE (#1) [facility] Test 09:19:23 [code = COVID-19 VACCINE (#1)] Future Scheduled 2022-05-19 Hepatitis C screening [facility] Test 09:19:23 (procedure) [code = 325014143] Future Scheduled 2022-05-19 COLONOSCOPY SCREENING [facility] Test 09:19:23 [code = COLONOSCOPY SCREENING] Future Scheduled 2022-05-19 SHINGLES VACCINES (1 [facility] Test 09:19:23 of 2) [code = SHINGLES VACCINES (1 of 2)] Future Scheduled 2022-05-19 65[facility]AL [facility] 09:19:23 VACCINE (1 - PCV) [code = 65+ PNEUMOCOCCAL VACCINE (1 - PCV)] Future Scheduled 2022-05-19 [facility]INE [facility] 09:19:23 [code = INFLUENZA VACCINE] Future Scheduled 2022-05-19 HEPATITIS B VACCINES [facility] Test 09:19:23 (1 of 3 - 3-dose series) [code = HEPATITIS B VACCINES (1 of 3 - 3-dose series)] Future Scheduled 2022-05-19 COVID-19 VACCINE (#1) [facility] Test 09:19:23 [code = COVID-19 VACCINE (#1)] Future Scheduled 2022-05-19 Hepatitis C screening [facility] Test 09:19:23 (procedure) [code = 363802328] Future Scheduled 2022-05-19 COLONOSCOPY SCREENING [facility] Test 09:19:23 [code = COLONOSCOPY SCREENING] Future Scheduled 2022-05-19 SHINGLES VACCINES (1 [facility] Test 09:19:23 of 2) [code = SHINGLES VACCINES (1 of 2)] Future Scheduled 2022-05-19 65+ [facility]OCOCCAL [facility] 09:19:23 VACCINE (1 - PCV) [code = 65+ PNEUMOCOCCAL VACCINE (1 - PCV)] Future Scheduled 2022-05-19 INFLUENZA VACCINE [facility] Test 09:19:23 [code = INFLUENZA VACCINE] Future Scheduled 2022-05-06 HEPATITIS B VACCINES [facility] Test 13:22:41 (1 of 3 - 3-dose series) [code = HEPATITIS B VACCINES (1 of 3 - 3-dose series)] Future Scheduled 2022-05-06 COVID-19 VACCINE (#1) [facility] Test 13:22:41 [code = COVID-19 VACCINE (#1)] Future Scheduled 2022-05-06 Hepatitis C screening [facility] Test 13:22:41 (procedure) [code = [id number]] Future Scheduled 2022-05-06 COLONOSCOPY SCREENING [facility] Test 13:22:41 [code = COLONOSCOPY SCREENING] Future Scheduled 2022-05-06 SHINGLES VACCINES (1 [facility] Test 13:22:41 of 2) [code = SHINGLES VACCINES (1 of 2)] Future Scheduled 2022-05-06 65+ [facility]OCOCCAL [facility] 13:22:41 VACCINE (1 - PCV) [code = 65+ PNEUMOCOCCAL VACCINE (1 - PCV)] Future Scheduled 2022-05-06 [facility]ENZA [facility]ACCINE [facility] 13:22:41 [code = INFLUENZA VACCINE] Future Scheduled 2022-03-09 HEPATITIS B VACCINES [facility] Test 09:28:37 (1 of 3 - 3-dose series) [code = HEPATITIS B VACCINES (1 of 3 - 3-dose series)] Future Scheduled 2022-03-09 COVID-19 VACCINE (#1) [facility] Test 09:28:37 [code = COVID-19 VACCINE (#1)] Future Scheduled 2022-03-09 Hepatitis C screening [facility] Test 09:28:37 (procedure) [code = [id number]] Future Scheduled 2022-03-09 COLONOSCOPY SCREENING [facility] Test 09:28:37 [code = COLONOSCOPY SCREENING] Future Scheduled 2022-03-09 SHINGLES VACCINES (1 [facility] Test 09:28:37 of 2) [code = SHINGLES VACCINES (1 of 2)] Future Scheduled 2022-03-09 65[facility] 09:28:37 VACCINE (1 - PCV) [code = 65+ PNEUMOCOCCAL VACCINE (1 - PCV)] Future Scheduled 2022-03-09 [facility]ENZA [facility]ACCINE [facility] 09:28:37 [code = INFLUENZA VACCINE] Future Scheduled 2022-03-09 HEPATITIS B VACCINES [facility] Test 09:28:37 (1 of 3 - 3-dose series) [code = HEPATITIS B VACCINES (1 of 3 - 3-dose series)] Future Scheduled 2022-03-09 COVID-19 VACCINE (#1) [facility] Test 09:28:37 [code = COVID-19 VACCINE (#1)] Future Scheduled 2022-03-09 Hepatitis C screening [facility] Test 09:28:37 (procedure) [code = [id number]] Future Scheduled 2022-03-09 COLONOSCOPY SCREENING [facility] Test 09:28:37 [code = COLONOSCOPY SCREENING] Future Scheduled 2022-03-09 SHINGLES VACCINES (1 [facility] Test 09:28:37 of 2) [code = SHINGLES VACCINES (1 of 2)] Future Scheduled 2022-03-09 65[facility] 09:28:37 VACCINE (1 - PCV) [code = 65+ PNEUMOCOCCAL VACCINE (1 - PCV)] Future Scheduled 2022-03-09 [facility]FLUENZA VACCINE [facility] Test 09:28:37 [code = INFLUENZA VACCINE] Future Scheduled 2022-03-06 INFLUENZA VACCINE (#1) [facility] [code = INFLUENZA Medical Ce nter VACCINE (#1)] Future Scheduled 2022-03-06 INFLUENZA VACCINE (#1) [facility] 00:00:00 [code = INFLUENZA Medical Ce nter VACCINE (#1)] Future Scheduled 2022-03-06 INFLUENZA VACCINE (#1) [facility] 00:00:00 [code = INFLUENZA Medical Ce nter VACCINE (#1)] Future Scheduled 2022-03-06 INFLUENZA VACCINE (#1) [facility] 00:00:00 [code = INFLUENZA Medical Ce nter VACCINE (#1)] Future Scheduled 2022-03-06 INFLUENZA VACCINE (#1) [facility] 00:00:00 [code = INFLUENZA Medical Ce nter VACCINE (#1)] Future Scheduled 2022-03-06 INFLUENZA VACCINE (#1) [facility] 00:00:00 [code = INFLUENZA Medical Ce nter VACCINE (#1)] Future Scheduled 2021-07-09 Medicare IPPE (WELCOME [facility] 00:00:00 TO MEDICARE) [code = Medical Center Medicare IPPE (WELCOME TO MEDICARE)] Future Scheduled 2021-07-09 Medicare IPPE (WELCOME [facility] 00:00:00 TO MEDICARE) [code = Medical Center Medicare IPPE (WELCOME TO MEDICARE)] Future Scheduled 2021-07-09 Medicare IPPE (WELCOME [facility] 00:00:00 TO MEDICARE) [code = Medical Center Medicare IPPE (WELCOME TO MEDICARE)] Future Scheduled 2021-07-09 Medicare IPPE (WELCOME [facility] 00:00:00 TO MEDICARE) [code = Medical Center Medicare IPPE (WELCOME TO MEDICARE)] Future Scheduled 2021-07-09 Medicare IPPE (WELCOME [facility] 00:00:00 TO MEDICARE) [code = Medical Center Medicare IPPE (WELCOME TO MEDICARE)] Future Scheduled 2021-07-[address] [facility] Test 00:00:00 (12+) [code = Medical Center DEPRESSION SCREENING (12+)] Future Scheduled 2021-07-[address] F[address]S [address]K [address]ENING [facility] Test 00:00:00 [code = FALLS RISK Medical C enter SCREENING] Future Scheduled 2021-07-[address] [facility] Test 00:00:00 (12+) [code = Medical Center DEPRESSION SCREENING (12+)] Future Scheduled 2021-07-06 FALL[place] RISK SCREENING [facility] Test 00:00:00 [code = FALLS RISK Medical C enter SCREENING] Future Scheduled 2021-07-[address] [facility] Test 00:00:00 (12+) [code = Medical Center DEPRESSION SCREENING (12+)] Future Scheduled 2021-07-06 FALLS RISK SCREENING [facility] Test 00:00:00 [code = FALLS RISK Medical C enter SCREENING] Future Scheduled 2021-07-[address] [facility] Test 00:00:00 (12+) [code = Medical Center DEPRESSION SCREENING (12+)] Future Scheduled 2021-07-06 F[address] [address]ISK SCREENING [facility] Test 00:00:00 [code = FALLS RISK Medical C enter SCREENING] Future Scheduled 2021-07-[address] [facility] Test 00:00:00 (12+) [code = Medical Center DEPRESSION SCREENING (12+)] Future Scheduled 2021-07-06 F[address]ISK SCREENING [facility] Test 00:00:00 [code = FALLS RISK Medical C enter SCREENING] Future Scheduled 2021-07-[address] [facility] Test 00:00:00 (12+) [code = Medical Center DEPRESSION SCREENING (12+)] Future Scheduled 2021-07-06 F[address]ISK SCREENING [facility] Test 00:00:00 [code = FALLS RISK Medical C enter SCREENING] Future Scheduled 2019-09-19 PNEUMOCOCCAL 65+ [facility] Test 00:00:00 (1 - PCV) [code = Medical Ce nter PNEUMOCOCCAL 65+ YRS (1 - PCV)] Future Scheduled 2019-09-19 PNEUMOCOCCAL 65+ [facility] Test 00:00:00 (1 - PCV) [code = Medical Ce nter PNEUMOCOCCAL 65+ YRS (1 - PCV)] Future Scheduled 2019-09-19 PNEUMOCOCCAL 65+ Y[facility] Test 00:00:00 (1 - PCV) [code = Medical Ce nter PNEUMOCOCCAL 65+ YRS (1 - PCV)] Future Scheduled 2019-09-19 PNEUMOCOCCAL 65+ [facility] Test 00:00:00 (1 - PCV) [code = Medical Ce nter PNEUMOCOCCAL 65+ YRS (1 - PCV)] Future Scheduled 2019-09-19 PNEUMOCOCCAL 65+ YRS [facility] Test 00:00:00 (1 - PCV) [code = Medical Ce nter PNEUMOCOCCAL 65+ YRS (1 - PCV)] Future Scheduled 2019-09-19 PNEUMOCOCCAL 65+ YRS [facility] Test 00:00:00 (1 - PCV) [code = Medical Ce nter PNEUMOCOCCAL 65+ YRS (1 - PCV)] Future Scheduled 2004 SHINGLES VACCINES ([address] [facility] Test 00:00:00 of 2) [code = SHINGLES Medic al Center VACCINES (1 of 2)] Future Scheduled 2004 SHINGLES VACCINES ([address] [facility] Test 00:00:00 of 2) [code = SHINGLES Medic al Center VACCINES (1 of 2)] Future Scheduled 2004 SHINGLES VACCINES ([address] [facility] Test 00:00:00 of 2) [code = SHINGLES Medic al Center VACCINES (1 of 2)] Future Scheduled 2004 SHINGLES VACCINES ([address] [facility] Test 00:00:00 of 2) [code = SHINGLES Medic al Center VACCINES (1 of 2)] Future Scheduled 2004 SHINGLES VACCINES ([address] [facility] Test 00:00:00 of 2) [code = SHINGLES Medic al Center VACCINES (1 of 2)] Future Scheduled 2004 SHINGLES VACCINES ([address] [facility] Test 00:00:00 of 2) [code = SHINGLES Medic al Center VACCINES (1 of 2)] Future Scheduled 1973 DTAP/TDAP/TD [facility]ACCINES [facility] 00:00:00 (1 - Tdap) [code = Medical C enter DTAP/TDAP/TD VACCINES (1 - Tdap)] Future Scheduled 1973 DTAP/TDAP/TD [facility]ACCINES [facility] 00:00:00 (1 - Tdap) [code = Medical C enter DTAP/TDAP/TD VACCINES (1 - Tdap)] Future Scheduled 1973 DTAP/TDAP/TD [facility]ACCINES [facility] 00:00:00 (1 - Tdap) [code = Medical C enter DTAP/TDAP/TD VACCINES (1 - Tdap)] Future Scheduled 1973 DTAP/TDAP/TD [facility]ACCINES [facility] 00:00:00 (1 - Tdap) [code = Medical C enter DTAP/TDAP/TD VACCINES (1 - Tdap)] Future Scheduled 1973 DTAP/TDAP/TD [facility]ACCINES [facility] 00:00:00 (1 - Tdap) [code = Medical C enter DTAP/TDAP/TD VACCINES (1 - Tdap)] Future Scheduled 1973 DTAP/TDAP/TD [facility]ACCINES [facility] 00:00:00 (1 - Tdap) [code = Medical C enter DTAP/TDAP/TD VACCINES (1 - Tdap)] Future Scheduled 1972 HE[facility]ITIS C [facility]CRE[facility]00 [code = HEPATITIS C Medical Center SCREENING] Future Scheduled 1972 HE[facility]ITIS C [facility] 00:00:00 [code = HEPATITIS C Medical Center SCREENING] Future Scheduled 1972 HE[facility]ITIS C [facility] 00:00:00 [code = HEPATITIS C Medical Center SCREENING] Future Scheduled 1972 [facility]ITIS C [facility] 00:00:00 [code = HEPATITIS C Medical Center SCREENING] Future Scheduled 1972 [facility]ITIS C [facility] 00:00:00 [code = HEPATITIS C Medical Center SCREENING] Future Scheduled 1972 [facility]ITIS C [facility] 00:00:00 [code = HEPATITIS C Medical Center SCREENING] Future Scheduled [address] [facility] Test 00:00:00 Counseling and Medical Cente r Screening (12+) [code = Tobacco Cessation Counseling and Screening (12+)] Future Scheduled [address] [facility] Test 00:00:00 Counseling and Medical Cente r Screening (12+) [code = Tobacco Cessation Counseling and Screening (12+)] Future Scheduled 1955-03-21 COVID-19 VACCINE (#1) [facility] 00:[facility]:00 [code = COVID-[address] VACCINE (#1)] Future Scheduled 1955-03-21 COVID-19 VACCINE (#1) [facility] 00:00:00 [code = COVID-[address] VACCINE (#1)] Future Scheduled 1955-03-21 COVID-19 VACCINE (#1) [facility] 00:00:00 [code = COVID-[address] VACCINE (#1)] Future Scheduled 1955-03-21 COVID-19 VACCINE (#1) [facility] 00:00:00 [code = COVID-[address] VACCINE (#1)] Future Scheduled 1955-03-21 COVID-19 VACCINE (#1) [facility] 00:00:00 [code = COVID-[address] VACCINE (#1)] Future Scheduled 1955-03-21 COVID-19 VACCINE (#1) [facility] 00:00:00 [code = COVID-[address] VACCINE (#1)] Future Scheduled 1954 Sigmoidoscopy [code = [facility]] Medical Cente r Future Scheduled [address] [facility] 00:00:00 (combo) [code = CT Medical C enter Colonography (combo)] Future Scheduled [address] [facility] 00:[facility]:00 malignant neoplasm of [facility]ica l Center colon (procedure) [code = 104308512] Future Scheduled [address] [facility] 00:00:00 malignant ne[facility] colon (procedure) [code = 664199896] Future Scheduled [address] [facility] 00:00:00 malignant neoplasm of [facility] Center colon (procedure) [code = 668258203] Future Scheduled [address] [facility] 00:00:00 malignant neoplasm of [facility] Center colon (procedure) [code = 477422303] Future Scheduled 1954 Sigmoidoscopy [facility]] Medical Cente r Future Scheduled [address] [facility] 00:00:00 (combo) [code = CT Medical C enter Colonography (combo)] Future Scheduled [address] [facility] 00:00:00 malignant [facility] Center colon (procedure) [code = 468717737] Future Scheduled [address] [facility] 00:00:00 malignant neoplasm of [facility] Center colon (procedure) [code = 789472207] Future Scheduled [address] [facility] 00:00:00 malignant neoplasm of [facility] Center colon (procedure) [code = 435520883] Future Scheduled [address] [facility] 00:00:00 malignant neoplasm of [facility] Center colon (procedure) [code = 407922507] Future Scheduled 1954 Sigmoidoscopy [facility]] Medical Cente r Future Scheduled [address] [facility] 00:00:00 (combo) [code = CT Medical C enter Colonography (combo)] Future Scheduled [address] [facility] 00:00:00 (combo) [code = CT Medical C enter Colonography (combo)] Future Scheduled [address] [facility] 00:00:00 malignant neoplasm of [facility] Center colon (procedure) [code = 797136213] Future Scheduled [address] [facility] 00:00:00 malignant neoplasm of [facility] Center colon (procedure) [code = 442692458] Future Scheduled [address] [facility] 00:00:00 malignant [facility] of [facility] Center colon (procedure) [code = 732823567] Future Scheduled [address] [facility] 00:00:00 malignant neoplasm of [facility] Center colon (procedure) [code = 021532557] Future Scheduled 1954 Sigmoidoscopy [facility]] Medical Cente r Future Scheduled [address] [facility] 00:00:00 malignant neoplasm of [facility] Center colon (procedure) [code = 123050235] Future Scheduled [address] [facility] 00:00:00 (combo) [code = CT Medical C enter Colonography (combo)] Future Scheduled [address] [facility] 00:00:00 malignant neoplasm of [facility] Center colon (procedure) [code = 615097179] Future Scheduled [address] [facility] 00:00:00 malignant neoplasm of [facility] Center colon (procedure) [code = 086295016] Future Scheduled [address] [facility] 00:00:00 malignant neoplasm of [facility] colon (procedure) [code = 202194853] Future Scheduled [address] [facility] 00:00:00 malignant neoplasm of [facility] Center colon (procedure) [code = 944199558] Future Scheduled [address] [facility] 00:00:00 malignant neoplasm of [facility] Center colon (procedure) [code = 717751524] Future Scheduled 1954 Sigmoidoscopy [facility] Medical Cent[facility] r Future Scheduled [address] [facility] 00:00:00 malignant neoplasm of [facility] Center colon (procedure) [code = 847666533] Future Scheduled [address] [facility] 00:00:00 malignant neoplasm of [facility] Center colon (procedure) [code = 605667545] Future Scheduled [address] [facility] 00:00:00 malignant neoplasm of [facility] Center colon (procedure) [code = 868156998] Future Scheduled 1954 Sigmoidoscopy [facility]] Medical Cent[facility] r Future Scheduled [address] [facility] 00:00:00 (combo) [code = CT Medical C enter Colonography (combo)] Future Scheduled [address] [facility] 00:00:00 malignant neoplasm of [facility] Center colon (procedure) [code = 685674403] Future Scheduled [address] [facility] 00:00:00 malignant neoplasm of [facility] Center colon (procedure) [code = 015803204] Future Scheduled [address] [facility] 00:00:00 malignant neoplasm of [facility] colon (procedure) [code = 303457435] Encounters Start End Encounter Admission Attending Care Care Encounter Source Date/Time Date/Time Type Type Clinicians Facility Department ID 2022-08-05 2022-08-05 Outpatient [facility] [id number] [facility] 00:00[facility]00 [facility] 2022-08-05 2022-08-05 Outpatient [facility] [id number] [facility] 00:00:00 00:00:00 [facility] 2022-07-15 2022-07-15 Outpatient [facility] [id number] [facility] 00:00:00 00:00:00 [facility] 2022-07-15 2022-07-15 Outpatient [facility] [id number] [facility] 00:00:00 00:00:00 [facility] 2022-06-24 2022-06-24 Outpatient [facility] [id number] [facility] 00:00:00 00:00:00 [facility] 2022-06-24 2022-06-24 Outpatient [facility] [id number] [facility] 00:00:00 00:00:00 [facility] 2022-06-03 2022-06-03 Outpatient [facility] [id number] [facility] 00:00:00 00:00:00 [facility] 2022-06-03 2022-06-03 Outpatient [facility] [id number] [facility] 00:00:00 00:00:00 [facility] 2022-05-15 2022-05-15 [facility] [id number] [facility]00 [facility] 2022-05-15 2022-05-15 [facility] [id number] [facility] 14[facility]30[facility]00 Encounter 1, [facility] [address] Room [facility] 2022-05-15 2022-05-15 Outpatient [facility] [id number] 00:00:00 00:00:00 [facility] 2022-05-13 2022-05-13 Outpatient [facility] [id number] [facility] 09:00:03 23:59:00 [facility] 2022-05-13 2022-05-13 Outpatient LUZ [facility] [id number] [facility] 08:58:31 10:03:39 [facility] 2022-05-13 2022-05-13 Outpatient [facility] [id number] [facility] 00:00:00 00:00:00 [facility] 2022-04-29 2022-04-29 Outpatient LUZ [facility] [id number] [facility] 09:13:53 11:12:51 [facility] 2022-04-29 2022-04-[address] [facility] [id number] 00:00[facility]00 00:00:00 Only [facility] 2022-04-29 2022-04-29 [place] [address] [facility] [id number] 00:00:00 00:00:00 Only [facility] 2022-02-07 2022-02-11 Inpatient EM Tyler, [facility] [id number] [facility] 14:40:00 15:08:00 Butch 81 [facility] 2022-02-07 2022-02-11 Inpatient EM Tyler, [facility] [id number] [facility] 14:40:00 15:08:00 Butch [id number] [facility] 2022-02-08 2022-02-08 Outpatient DIANA ScottN REF [id number] [facility] 06:03:00 06:03:00 Butch 34 [facility] 2022-02-06 2022-02-06 Orders Dania 1.2.840.1 [id number] Methodi 00:00:00 00:00:00 Only my, 67976.1.1 134 [facility] 3.430.2.7 Hospi ta Brown .3.474530 l .8 2022-02-06 2022-02-06 Orders Dania 1.2.840.1 [id number] 21 [id number] Methodi 00:00:00 00:00:00 Only my, 93560.1.1 134 [facility] 3.430.2.7 Hospi ta Brown .3.511035 l .8 2022-02-02 2022-02-05 Inpatient EM Lacjeanne, [facility]01 [id number] [facility] 10:23:00 16:36:00 Jorge 61 [facility] 2022-02-02 2022-02-05 Inpatient EM Иван, [facility]01 [id number] [facility] 10:23:00 16:36:00 Jorge [id number] [facility] 2022-02-01 2022-02-01 Emergency EM Ana Luisa, [facility] OANH [id number] [facility] 12:26:00 16:45:00 Lucian 30 [facility] 2022-02-01 2022-02-01 Emergency EM Ana Luisa, [facility] [id number] [facility] 12:26:00 16:45:00 Lucian [id number] [facility] 2022-01-27 2022-01-30 Inpatient Yobany Shoemaker [facility].01 BP354 65-20 [facility] 05:57:00 10:01:00 [id number] [facility] 2022-01-27 2022-01-30 Inpatient Yobany Shoemaker [facility]01 [id number] [facility] 05:57:00 10:01:00 36 [facility] 2022-01-28 2022-01-28 Outpatient Yobany Mendez [facility] REF BN02 [id number] [facility] 08:13:00 08:13:00 48 [facility] 2022-01-22 2022-01-22 [facility], Yobany 1.2.840.1 [id number] 21 [id number] Methodi 12:04:18 23:59:00 Encounter Alejandro 34644.1.1 511 s t 3.430.2.7 Hospit a .3.246214 l .8 2022-01-22 2022-01-22 [facility] Yobany 1.2.840.1 [id number] 21 [id number] Methodi 12:04:18 23:59:00 Encounter Alejandro 84343.1.1 511 s t 3.430.2.7 Hospit a .3.246168 l .8 2022-01-22 2022-01-22 Outpatient Wiliam Mendezic [facility] 3D BP00 [id number] [facility] 08:00:00 23:00:[address] [place] [address] 2022-01-22 2022-01-22 [facility]any 1.2.840.1 [id number] 21 [id number] Methodi 11:56:35 12:03:00 Encounter Alejandro 06135.1.1 543 s t 3.430.2.7 Hospit a .3.568327 l .8 2022-01-22 2022-01-22 [facility] Yobany 1.2.840.1 [id number] 21 [id number] Methodi 11:56:35 12:03:00 Encounter Alejandro 39307.1.1 543 s t 3.430.2.7 Hospit a .3.862619 l .8 2022-01-22 2022-01-22 [facility] Yobany 1.2.840.1 [id number] 21 [id number] Methodi 11:55:04 11:55:04 Encounter Alejandro 93118.1.1 335 s t 3.430.2.7 Hospit a .3.004509 l .8 2022-01-22 2022-01-22 [facility] Yobany 1.2.840.1 [id number] 21 [id number] Methodi 11:55:04 11:55:04 Encounter Alejandro 89387.1.1 335 s t 3.430.2.7 Hospit a .3.181295 l .8 2022-01-17 2022-01-17 Outpatient [facility] [id number] [facility] 06:04:00 06:04:00 [facility] 2021-06-11 2021-06-11 Outpatient DMG DMG [id number] 021 [facility] 08:01:00 08:01:00 1207 Medica l [...] ase note: New Reference Range Aug 2020 [id number] 06:55:00 Test Item Value Reference Range Interpretation Comments MAGNESIUM (test code = 1.8 mg/dL 1.6-2.6 N Pleas e note: New MAG) Reference Range Aug 2020 CBC W/AUTO [id number] 06:27:00 Test Item Value Reference Range Interpretation [...] BA#) 0.07 x10 3/uL 0.0-0.20 N VANCOMYCIN [id number] 04:25:00 Test Item Value Reference Range Interpretation Comments VANCOMYCIN TROUGH (test code = 15.5 mcg/dL 10.0-20.0 N VANCT) BASIC METABOLIC [id number] 04:55:00 Test Item Value Reference Range Interpretation [...] New = CA) Reference Range Aug 2020 [id number] 04:55:00 Test Item Value Reference Range Interpretation Comments MAGNESIUM (test code = 1.8 mg/dL 1.6-2.6 N Pleas e note: New MAG) Reference Range Aug 2020 CBC W/AUTO [id number] 04:52:00 Test Item Value Reference Range Interpretation [...] BA#) 0.06 x10 3/uL 0.0-0.20 N VANCOMYCIN [id number] 04:44:00 Test Item Value Reference Range Interpretation Comments VANCOMYCIN TROUGH (test code = 14.9 mcg/dL 10.0-20.0 N VANCT) BASIC METABOLIC [id number] 04:46:00 Test Item Value Reference Range Interpretation [...] AVG 11.04~~~~~~~~~~ ~~~~~~~ ~~~~~~~~~~~~~~~ ~~~~~~~ ~~~~~~~~~~~~~~~ ~~~~~~N [facility] shayna Education (RIEP ) Guidelines:~~~~ ~~~~~~~ ~~~~~~~~~~~~~~~ ~~~~~~~ ~~~~~~~~~~~~~~~ ~~~~~~~ ~~~~~ HDL Cholesterol<4 0mg/dL: HDL Cholesterol (Major risk factor for CHD)>60mg/dL: H DL Cholesterol (Ne gative risk factor for CHD)40-59mg/dL: Borderline Risk LDL Cholesterol<1 00mg/dL : Desirable LDL -C xrucdqfrqpotv13 0-159mg /dL: Borderline High Risk LDL-C cmkrjhdvivrnz65 0-189mg /dL: High risk LDL-C concentration H DL-LDL Cholesterol is affected by a n umber of factors such as smoking, age an d sex.~~~~~~~~~~~ ~~~~~~~ ~~~~~~~~~~~~~~~ ~~~~~~~ ~~~~~~~~~~~~~~~ ~~~~~ LIVER FUNCTION [id number] 04:46:00 Test Item Value Reference Range Interpretation [...] code = ALKP) Reference Range Aug 2020 [id number] 04:46:00 Test Item Value Reference Range Interpretation Comments AMYLASE (test code = 150 U/L 30-118 H Please note: New DOMINGO) Reference Range Aug 2020 [id number] 04:46:00 Test Item Value Reference Range Interpretation Comments LIPASE (test code = 143 U/L 12-53 H Please n ote: New LIP) Reference Range Aug 2020 CBC W/AUTO [id number] 04:40:00 Test Item Value Reference Range Interpretation [...] 0.06 x10 3/uL 0.0-0.20 N BASIC METABOLIC [id number] 05:47:00 Test Item Value Reference Range Interpretation [...] New = CA) Reference Range Aug 2020 [id number] 05:47:00 Test Item Value Reference Range Interpretation Comments MAGNESIUM (test code = 1.8 mg/dL 1.6-2.6 N Pleas e note: New MAG) Reference Range Aug 2020 - XR ABDOMEN [id number] 08:37:00 [facility] 1955 Sex: MPatient Name: MARGARET WEEMS JR Unit No: [id number] EXAMS: CPT CODE: [id number] XR ABDOMEN 1V 37175 Abdomen (KUB) History: abdominal exam Comparison: February 02, 2022 Location: H45 Number of images: 1 There are dilated [...] Dt/Tm: 02/04/2022 (0837) by:GiuseppePMT Printed Date/Time: 02/04/2022 (0840) Name: MARGARET WEEMS JR [facility] Phys: Casper Esqueda DO [address] : 1955 Age: 66 Sex: [place] [address] Loc: P.0576 1 Exam Date: 02/04/2022 Status: ADM IN PH: FAX: PAGE 1 Signed ReportBASIC METABOLIC [id number] 05:03:00 Test Item Value Reference Range Interpretation [...] New = CA) Reference Range Aug 2020 [id number] 05:03:00 Test Item Value Reference Range Interpretation Comments MAGNESIUM (test code = 2.0 mg/dL 1.6-2.6 N Pleas e note: New MAG) Reference Range Aug 2020 - XR CHEST 1 [id number] 08:55:00 [facility] JOHANNY : 1955 Sex: MPatient Name: MARGARET WEEMS JOHANNY Unit No: [id number] EXAMS: CPT CODE: [id number] XR CHEST 1 V 77304 Chest Radiograph History: NG TUBE PLACEMENT Comparison: [...] Dt/Tm: 02/03/2022 (0855) by:GiuseppePMT Printed Date/Time: 02/03/2022 (0814) Name: WEEMSMARGARET ARNOLD [facility] Phys: Casper Esqueda DO [address] : 1955 Age: 66 Sex: [place] [address] Loc: P.0576 1 Exam Date: 02/03/2022 Status: ADM IN PH: FAX: PAGE 1 Signed ReportBASIC METABOLIC [id number] 04:13:00 Test Item Value Reference Range Interpretation [...] New = CA) Reference Range Aug 2020 [id number] 04:13:00 Test Item Value Reference Range Interpretation Comments PHOSPHOROUS (test code 3.5 mg/dL 2.4-5.1 N Pleas e note: New = PHOS) Reference Range Aug 2020 [id number] 04:13:00 Test Item Value Reference Range Interpretation Comments MAGNESIUM (test code = 1.9 mg/dL 1.6-2.6 N Pleas e note: New MAG) Reference Range Aug 2020 CBC W/AUTO [id number] 03:51:00 Test Item Value Reference Range Interpretation [...] 3/uL 0.0-0.20 N - XR CHEST 1 [id number] 17:41:00 [facility] : 1955 Sex: MPatient Name: MARGARET WEEMS Unit No: [id number] EXAMS: CPT CODE: [id number] XR CHEST 1 V 28828 EXAM: - XR CHEST 1 V, - [...] by: BRIANNA MELLO M.D. CC: Jorge Oates MD Technologist: Brie Gutiérrez Time: DAP (Gy m2): Air Kerma (mGy): Trscr Dt/Tm: 02/02/2022 (1741) by:[email or web address] Printed Date/Time: 02/02/2022 (1745) Name: WEEMSMARGARET ARNOLD JOHANNY MAXWELL [facility] Phys: Jorge Montes MD [address] : 1955 Age: 66 Sex: [place] [address] Loc: P.0576 1 Exam Date: 02/02/2022 Status: ADM IN PH: FAX: PAGE 1 Signed Report- XR ABDOMEN [id number] 17:41:00 [facility] STEVEGRETTA : 1955 Sex: MPatient Name: MARGARET WEEMS Unit No: [id number] EXAMS: CPT CODE: [id number] XR ABDO MEN 1V 88106 EXAM: - XR CHEST 1 V, - XR ABDOMEN 1V HISTORY: Pain. Post surgery. COMPARISON: January. FINDINGS: Single portable view of the chest [...] Oates MD; Casper Blanco DO Technologist: Brie Verdugo; Yamilka Gutiérrez Time: DAP (Gy m2): Air Kerma (mGy): Trscr Dt/Tm: 02/02/2022 (1740) by:[email or web address] Printed Date/Time: 02/02/2022 (174) Name: MARGARET WEEMS [facility] Phys: Casper Esqueda DO [address] [facility] : 1955 Age: 66 [place] [address] Loc: P.0576 1 Exam Date: 02/02/2022 Status: ADM IN PH: FAX: PAGE 1 Signed Report- XR ABDOMEN [id number] 10:08:00 [facility] : 1955 Sex: MPatient Name: MARGARET WEEMS Unit No: [id number] EXAMS: CPT CODE: [id number] XR ABDOMEN 1V 38216 Location code: B2 Abdomen one view HISTORY: [...] signed by: Yong Castle M.D. CC: Technologist: Bire Gutiérrez Time: DAP (Gy m2): Air Kerma (mGy): Trscr Dt/Tm: 02/02/2022 (1008) by:[email or web address] Printed Date/Time: 02/02/2022 (1011) Name: MARGARET WEEMS JR [facility] Phys: Jose Butts [address] : 1955 Age: 66 Sex: [place] [address] Loc: TrishERS Exam Date: 02/02/2022 Status: REG ER PH: FAX: PAGE 1 Signed ReportBASIC METABOLIC [id number] 10:02:00 Test Item Value Reference Range Interpretation [...] CA) Reference Range Aug 2020 LIVER FUNCTION [id number] 10:02:00 Test Item Value Reference Range Interpretation [...] code = ALKP) Reference Range Aug 2020 [id number] 10:02:00 Test Item Value Reference Range Interpretation Comments LIPASE (test code = 70 U/L 12-53 H Please n ote: New LIP) Reference Range Aug 2020 CBC W/AUTO [id number] 09:34:00 Test Item Value Reference Range Interpretation [...] 3/uL 0.0-0.20 N - CT ABD PELVIS [id number] 15:49:00 [facility]OHANNY : 1955 Sex: MPatient Name: MARGARET WEEMS JOHANNY Unit No: [id number] EXAMS: CPT CODE: [id number] CT ABD PELVIS W/CONT 70958 EXAM: - CT ABD PELVIS W/CONT HISTORY: Post colectomy. TECHNIQUE: Axial tomograms through the abdomen and pelvis were obtained after intravenous contrast. Coronal and sagittal reformatted images are provided. This exam was performed according to our departmental dose-optimization program, which includes automated exposure control, adjustment of the mA and/or kV according to patient size and/or use of iterative reconstruction technique. COMPARISON: None available time of interpretation. FINDINGS: The visualized lung bases are clear. There is minimal free intraperitoneal air. There is minimal free fluid in abdomen and pelvis. Postsurgical changes are present in right lower bowel. The stomach is filled with fluid. Loops of small bowel are distended with gas and air-fluid levels. Thegallbladder is surgically absent. The liver, spleen, pancreas, adrenal glands and kidneys demonstrate no significant abnormalities. A small 1.6 cm cortical cyst in right kidney. No hydronephrosis. Diffuse degenerative changes are present in spine. Calcified plaques are present in aorta and coronary arteries. IMPRESSION: Status post bowel surgery. Minimal intraperitoneal free air and free fluid. Distended loops of small bowel may represent ileus. Electronically Signed by BRIANNA MELLO M.D. on 02/01/2022 at 1549 Reported and signed by: BRIANNA MELLO M.D. Name: MARGARET WEEMS [facility] Phys: Lucian Castle MD [address] : 1955 Age: 66 Sex: [place] [address] Loc: P.ERS Exam Date: 02/01/2022 Status: REG ER PH: FAX: PAGE 1 Signed Report (CONTINUED) Patient Name: MARGARET WEEMS JR Unit No: [id number] EXAMS: CPT CODE: [id number] CT ABD PELVIS W/CONT 38905 (Continued) CC: Lucian Orosco MD Technologist: NILAM SAMANO RT (R),(CT) CTDI: 8.57 DLP: 600.77 Trscr Dt/Tm: 02/01/2022 (1549) by:[email or web address] Printed Date/Time: 02/01/2022 (8819) Name: MARGARET WEEMS [facility] Phys: Lucian Castle MD [address] : 1955 Age: 66 Sex: [place] [address] Loc: MALIKA Exam Date: 02/01/2022 Status: REG ER PH: FAX: PAGE 2 Signed ReportUA RFLX MICR CULT IF [id number] 14:29:00 Test Item Value Reference Range Interpretation [...] SQU) Indication for culture: Suprapubic PainBASIC METABOLIC [id number] 14:04:00 Test Item Value Reference Range Interpretation [...] CA) Reference Range Aug 2020 LIVER FUNCTION [id number] 14:04:00 Test Item Value Reference Range Interpretation [...] code = ALKP) Reference Range Aug 2020 [id number] 14:04:00 Test Item Value Reference Range Interpretation Comments LIPASE (test code = 61 U/L 12-53 H Please n ote: New LIP) Reference Range Aug 2020 CBC W/AUTO [id number] 13:36:00 Test Item Value Reference Range Interpretation [...] = BA#) 0.02 x10 3/uL 0.0-0.20 N [id number] 12:37:00 Test Item Value Reference Range Interpretation Comments SURGICAL (test code = SR) RUN DATE: 03/13/22 [facility] - LAB PAGE 1 RUN TIME: 1447 Specimen Inquiry RUN USER: INTERFACE SCOTTIE ENT: MARGARET WEEMS JR LOC: [facility] POD B U #: [id number] AGE/SX: 66/M ROOM: [facility] RE01/27/22[facility] DR: Yobany Mendez MD : 53 BED: 1 DIS: 01/30/22 STATUS: DIS IN TLOC: SPEC #: [id number] RECD: 01/28/22 STATUS: SOUIlya REQ #: [id number] MIKEY: 01/27/[address] [facility] [address]: Yobany Mendez MD ENTERED: 01/28/22 SP TYPE: SURGICAL OTHR DR: Undefined Provider ORDERED: 18073, 36524, 61364/4, ANATOMIC SPEC HISTOLOGY: TISSUE ID BLK PCS HARPER LEV / PROCEDURE DISPOSITION ____ ___ ___ ___ ___ COLON NOS A 22 1 BONY B 1 1 TISSUES: A. COLON NOS - RIGHT COLON, LYMPH NODES B. 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 PLEASE SEE ORIGINAL [facility] REPORT FOR DETAILS Addendum Signed SIGNATURE ON FILE Guerrero Topete 03/13/221446 CAP CANCER SUMMARY CASE SUMMARY: (COLON AND [...] Not identifiedTreatment Effect: No known pre-surgical therapy CONTINUED ON NEXT PAGE RUN DATE: 03/13/22 [facility] - LAB PAGE 2 RUN TIME: 1446 Specimen Inquiry RUN USER: INTERFACE SPEC #: [id number] PATIENT: MARGARET WEEMS JR #[id number] (Continued) ------- CAP CANCER SUMMARY (Continued) MARGINS Margin Status for Invasive Carcinoma:All margins (proximal, distal, and radial) negative for invasive carcinoma REGIONAL LYMPH NODES Regional Lymph Node Status: Tumor present in regional lymph node(s) Number of Lymph Nodes with Tumor: Exact number (specify): 1Number of Lymph Nodes Examined: Exact number (specify): 16Tumor Deposits: Not identified. DISTANT METASTASIS Distant Site(s) Involved: Not applicable PATHOLOGIC STAGE CLASSIFICATION (pTNM, AJCC 8th Edition) [...] is probably not indicated; absence of both UET2yhcpldhschy and of BRAF V600E mutation suggests the possibility of Tuttle syndrome andsequencing and / or large deletion / duplication testing of germline MLH1 may be CONTINUED ON NEXT PAGE RUN DATE: 03/13/22 [facility] [facility] - LAB PAGE 3 RUN TIME: 1447 Specimen Inquiry RUN USER: INTERFACE SPEC #: [id number] PATIENT: MARGARET WEEMS JR #[id number] (Continued) ------- FINAL DIAGNOSIS (Continued) indicated). B. OMENTUM, RESECTION:- Benign omental fibroadipose tissue, [...] longitudinally, revealing an average circumference of 9 cm.The mucosal surface is dejesus with rugal folds. [...] cassette B. TRAY/layla Technical component performed at [facility], [place], [address] Unless gross only, the diagnosis is based upon microscopic examination.Immunohistochemistry : This test was developed and its performancecharacteristics determined by this laboratory. It has not been approved nordoes it need approval by the [place] FDA. Appropriate positive and negative controlsare reviewed and judged to be acceptable. This laboratory is certified undert Clinical Laboratory Improvement Amendments (CLIA-88) as qualified toperform high complexity clinical laboratory testing. CONTINUED ON NEXT PAGE RUN DATE: 03/13/22 [facility] - LAB PAGE 4 RUN TIME: 1447 Specimen Inquiry RUN USER: INTERFACE SPEC #: [id number] PATIENT: MARGARET WEEMS JR #[id number] (Continued) ------- MICROSCOPIC DESCRIPTION Performed. 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)KRAS Exon 3 - Not detectedKRAS Exon 4 - Not detected BRAF MUTATION: Not detected PLEASE SEE ORIGINAL REFERENCE LAB REPORT FOR DETAILS Addendum Signed SIGNATURE ON FILE Guerrero Topete [place] 03/11/22 1648 CLINICAL INFORMATION RIGHT COLON CARCINOMA ----- Signed SIGNATURE ON FILE EfremGuerrero M 01/31/22 1237 END OF REPORT BASIC METABOLIC [id number] 04:30:00 Test Item Value Reference Range Interpretation [...] Ne w NITROGEN (test Reference Ran ge Fe code = BUN) 2020 GLOMERULAR >=60 max [...] New = CA) Reference Range Aug 2020 [id number] 04:30:00 Test Item Value Reference Range Interpretation Comments MAGNESIUM (test code = 2.0 mg/dL 1.6-2.6 N Pleas e note: New MAG) Reference Range Aug 2020 CBC W/AUTO [id number] 04:18:00 Test Item Value Reference Range Interpretation [...] 0.03 x10 3/uL 0.0-0.20 N BASIC METABOLIC [id number] 05:44:00 Test Item Value Reference Range Interpretation [...] New = CA) Reference Range Aug 2020 [id number] 05:44:00 Test Item Value Reference Range Interpretation Comments MAGNESIUM (test code = 2.1 mg/dL 1.6-2.6 N Pleas e note: New MAG) Reference Range Aug 2020 CBC W/AUTO [id number] 05:36:00 Test Item Value Reference Range Interpretation [...] 0.03 x10 3/uL 0.0-0.20 N BASIC METABOLIC [id number] 05:53:00 Test Item Value Reference Range Interpretation [...] New = CA) Reference Range Aug 2020 [id number] 05:53:00 Test Item Value Reference Range Interpretation Comments MAGNESIUM (test code = 1.7 mg/dL 1.6-2.6 N Pleas e note: New MAG) Reference Range Aug 2020 COMPREHENSIVE METABOLIC [id number] 12:15:00 Test Item Value Reference Range Interpretation [...] Range Feb code = ALKP) 2020 AG [id number] 12:15:00 Test Item Value Reference Range Interpretation Comments AG CARCINOEMBRYONIC (test 2.32 ng/mL 0.0-3.[address] ease note: New code = CEA) Reference Range Aug 2020 PROTHROMBIN [id number] 12:06:00 Test Item Value Reference Range Interpretation [...] 2.5-3.5recurren t systemic emboli sm. THROMBOPLASTIN TIME [id number] 12:06:00 Test Item Value Reference Range Interpretation Comments THROMBOPLASTIN TIME 30.1 SECONDS 23.8-34.8 N INTERPRE TATIVE PARTIAL (test code = DATA: erapeut PTT) range: Unfractionated heparin:55 - 80 seconds Argatroban:1.5 to 3 times the basel ine PTT CBC W/AUTO [id number] 11:53:00 Test Item Value Reference Range Interpretation [...]
[2022-05-30 11:23] LABS: Absolute Lymphocytes (CBC) 0.6 K/uL (0.7-4.9); Hematocrit 44.1 % (39.6-49.0); Lymphocytes % 20.2 % (15.3-44.8); MCV 90.9 fL (80-100); MPV 8.5 fL (7.6-11.3); RBC Red Blood Cell Count 4.85 M/uL (4.33-5.43)
[2022-05-30 11:25] LABS: Albumin 3.6 g/dL (3.4-5.0); Potassium 3.2 mmol/L (3.5-5.1); Protein, Total 6.8 g/dL (6.4-8.2)
[2022-05-30] MEDS ORDERED: MORPHINE 4 MG/ML SYR ONE (13:40)
[2022-05-30] MEDS ORDERED: NA CHLORIDE 0.9% 1,000 ML ONE (13:41)
[2022-05-30] MEDS ORDERED: ONDANSETRON 4 MG/2 ML VIAL ONE (13:41)
[2022-05-30] MEDS ORDERED: FAMOTIDINE 20 MG/2 ML VIAL IV ONE (13:41)
[2022-05-30 13:48] LABS: Urine Blood Negative (Negative); Urine Glucose Negative (Negative); Urine Protein 1+ (Negative); Urine Specific Gravity >=1.030 (1.005-1.030)
[2022-05-30] MEDS ORDERED: DIAZEPAM 10 MG/2 ML INJ SYRINGE ONE (14:04)
[2022-05-30] MEDS ORDERED: KCL 20 MEQ/100 mL IVPB 100 ML IV ONE (14:04)
--- NOTE | 2022-05-30 15:44 | ER ---
Nurse's Notes [facility] Name: Haroldo Castillo Jr Age: 66 yrs Sex: Male : 1955 Arrival Date: 05/30/2022 Time: 09:15 Bed 11 Private MD: Diagnosis: Upper abdominal pain, unspecified;Hypokalemia Presentation: 05/30 10:23 Chief complaint: Patient states: abd pain that began Thursday, worse Thursday. Decrease ss appetite with some N/D. HX of colon CA, chemo. Coronavirus screen: Client denies travel out of the [place] in the last 14 days. Ebola Screen: Patient denies exposure to infectious person. Patient denies travel to an Ebola-affected area in the 21 days before illness onset. Initial Sepsis Screen: Does the patient meet any 2 criteria? No. Patient's initial sepsis screen is negative. Does the patient have a suspected source of infection? No. Patient's initial sepsis screen is negative. Risk Assessment: Do you want to hurt yourself or someone else? Patient reports no desire to harm self or others. Onset of symptoms was May 27, 2022. 10:23 Method Of Arrival: Ambulatory ss 10:23 Acuity: VIKTOR 3 ss Historical: - Allergies: 10:24 No Known Allergies; ss - Home Meds: 10:27 capecitabine 500 mg oral tab 2 times per day [Active]; ss - PMHx: 10:24 colon cancer; Hypertensive disorder; ss - PSHx: 10:24 Cholecystectomy; ss 10:29 colon resection; ss - Immunization history:: Adult Immunizations up to date. - Social history:: Smoking status: Patient reports use of chewing tobacco. Screenin:15 Abuse screen: Denies threats or abuse. Denies injuries from another. Nutritional ss screening: No deficits noted. Tuberculosis screening: Never had TB. Fall Risk None identified. Assessment: 10:43 General: Appears in no apparent distress. comfortable, Behavior is calm, cooperative, ss Denies fever. Neuro: Level of Consciousness is awake, alert, obeys commands, Oriented to person, place, time, situation, Speech is normal, Facial symmetry appears normal. Cardiovascular: Capillary refill < 3 seconds is brisk in bilateral fingers. Respiratory: Airway is patent Respiratory effort is even, unlabored, Respiratory pattern is regular, symmetrical. GI: Abdomen is non-distended, Abdomen is tender to palpation in right upper quadrant and left upper quadrant Patient currently denies nausea. Derm: Skin is intact, is healthy with good turgor, Skin is dry, Skin is pink, warm \T\ dry. normal. Musculoskeletal: Range of motion:. 15:00 Reassessment: Patient appears in no apparent distress at this time. Patient and/or ss family updated on plan of care and expected duration. Pain level reassessed. Patient is alert, oriented x 3, equal unlabored respirations, skin warm/dry/pink. 16:15 Reassessment: Patient appears in no apparent distress at this time. Patient and/or ss family updated on plan of care and expected duration. Pain level reassessed. Patient states feeling better. Patient states symptoms have improved. Pain: Denies pain. Vital Signs: 10:25 BP 132 / 72; Pulse 67; Resp 20; Temp 98.4(O); Pulse Ox 99% on R/A; Pain 8/10; ss 10:27 Temp 98.4(TE); ss 13:56 BP 161 / 79; Pulse 71; Resp 15; Pulse Ox 100% on R/A; Pain 0/10; ss ED Course: 09:15 Patient arrived in ED. as 10:24 Triage completed. ss 10:25 Arm band placed on right wrist. ss 10:30 Reina Sawant FNP-C is PHCP. snw 10:30 Bryce Ford MD is Attending Physician. snw 10:58 Initial lab(s) drawn, by pa, sent to lab. Inserted saline lock: 20 gauge in left tm3 antecubital area, using aseptic technique. 11:30 Patient has correct armband on for positive identification. Bed in low position. Call ss light in reach. Client placed on continuous cardiac and pulse oximetry monitoring. NIBP monitoring applied. 13:56 Polina Benitez, YENI is Primary Nurse. ss 16:16 No provider procedures requiring assistance completed. IV discontinued, intact, ss bleeding controlled, No redness/swelling at site. Pressure dressing applied. Administered Medications: 13:50 Drug: NS 0.9% 1000 ml Route: IV; Rate: 1 bolus; Site: left antecubital; ss 16:06 Follow up: IV Status: Completed infusion ss 13:52 Drug: Zofran (Ondansetron) 4 mg Route: IVP; Site: left antecubital; ss 16:06 Follow up: Response: No adverse reaction ss 13:54 Drug: Pepcid (famotidine) 20 mg Route: IVP; Site: left antecubital; ss 14:15 Follow up: Response: No adverse reaction ss 13:56 Drug: morphine 4 mg Route: IVP; Infused Over: 4 mins; Site: left antecubital; ss 16:06 Follow up: Response: No adverse reaction; Pain is decreased ss 14:15 Drug: Potassium Chloride 20 mEq Route: IV; Rate: calculated rate; Site: left ss antecubital; 16:06 Follow up: IV Status: Completed infusion ss 14:15 Drug: Valium (diazepam) 5 mg Route: IVP; Site: left antecubital; ss 16:06 Follow up: Response: No adverse reaction; Pain is decreased ss 16:12 Drug: Dicyclomine 20 mg Route: PO; ss 16:30 Follow up: Response: No adverse reaction ss Medication: 16:15 VIS not applicable for this client. ss Outcome: 15:44 Discharge ordered by . snw 16:16 Discharged to home ambulatory, with family. ss 16:16 Condition: good 16:16 Discharge instructions given to patient, family, Instructed on discharge instructions, follow up and referral plans. medication usage, Demonstrated understanding of instructions, follow-up care, medications, Prescriptions given X 1. 16:19 Patient left the ED. ss Signatures: Moncho Barreto tm3 Reina Sawant, CHARGE HISTOTECHNOLOGIST-C CHARGE HISTOTECHNOLOGIST-Renu Mckinnon Shelby, RN RN ss
--- NOTE | 2022-05-30 15:45 | EDPHYS ---
Physician Documentation [facility] Name: Haroldo Castillo Jr Age: 66 yrs Sex: Male : 1955 Arrival Date: 05/30/2022 Time: 09:15 Bed 11 Private MD: ED Physician Bryce Ford HPI: 05/30 10:30 This 66 yrs old Male presents to ER via Ambulatory with complaints of Abdominal Pain, snw Decreased Appetite. 10:30 The patient presents with abdominal pain in the upper abdomen. Onset: The snw symptoms/episode began/occurred suddenly, 3 day(s) ago, and became worse today. The symptoms do not radiate. Associated signs and symptoms: Pertinent positives: nausea and vomiting, diarrhea. The symptoms are described as crampy. Severity of pain: At its worst the pain was moderate severe in the emergency department the pain is a 8 / 10. The patient has experienced similar episodes in the past. on chemo 2 weeks and off x 1 week for colon ca. . Historical: - Allergies: 10:24 No Known Allergies; ss - Home Meds: 10:27 capecitabine 500 mg oral tab 2 times per day [Active]; ss - PMHx: 10:24 colon cancer; Hypertensive disorder; ss - PSHx: 10:24 Cholecystectomy; ss 10:29 colon resection; ss - Immunization history:: Adult Immunizations up to date. - Social history:: Smoking status: Patient reports use of chewing tobacco. ROS: 13:46 Constitutional: Negative for fever, chills, and weight loss, Eyes: Negative for injury, snw pain, redness, and discharge, ENT: Negative for injury, pain, and discharge, Neck: Negative for injury, pain, and swelling, Cardiovascular: Negative for chest pain, palpitations, and edema, Respiratory: Negative for shortness of breath, cough, wheezing, and pleuritic chest pain, Back: Negative for injury and pain, : Negative for injury, bleeding, discharge, and swelling, MS/Extremity: Negative for injury and deformity, Skin: Negative for injury, rash, and discoloration, Neuro: Negative for headache, weakness, numbness, tingling, and seizure, Psych: Negative for depression, anxiety, suicide ideation, homicidal ideation, and hallucinations. 13:46 Abdomen/GI: Positive for abdominal pain, nausea, vomiting, diarrhea. Exam: 13:46 Constitutional: This is a well developed, well nourished patient who is awake, alert, snw and in no acute distress. Head/Face: Normocephalic, atraumatic. Eyes: Pupils equal round and reactive to light, extra-ocular motions intact. Lids and lashes normal. Conjunctiva and sclera are non-icteric and not injected. Cornea within normal limits. Periorbital areas with no swelling, redness, or edema. ENT: Nares patent. No nasal discharge, no septal abnormalities noted. Tympanic membranes are normal and external auditory canals are clear. Oropharynx with no redness, swelling, or masses, exudates, or evidence of obstruction, uvula midline. Mucous membranes moist. Neck: Trachea midline, no thyromegaly or masses palpated, and no cervical lymphadenopathy. Supple, full range of motion without nuchal rigidity, or vertebral point tenderness. No Meningismus. Chest/axilla: Normal chest wall appearance and motion. Nontender with no deformity. No lesions are appreciated. Cardiovascular: Regular rate and rhythm with a normal S1 and S2. No gallops, murmurs, or rubs. Normal PMI, no JVD. No pulse deficits. Respiratory: Lungs have equal breath sounds bilaterally, clear to auscultation and percussion. No rales, rhonchi or wheezes noted. No increased work of breathing, no retractions or nasal flaring. Back: No spinal tenderness. No costovertebral tenderness. Full range of motion. Skin: Warm, dry with normal turgor. Normal color with no rashes, no lesions, and no evidence of cellulitis. MS/ Extremity: Pulses equal, no cyanosis. Neurovascular intact. Full, normal range of motion. Neuro: Awake and alert, GCS 15, oriented to person, place, time, and situation. Cranial nerves II-XII grossly intact. Motor strength 5/5 in all extremities. Sensory grossly intact. Cerebellar exam normal. Normal gait. 13:46 Abdomen/GI: Inspection: abdomen appears normal, Bowel sounds: diminished, in all quadrants, Palpation: mild abdominal tenderness, in the epigastric area. Vital Signs: 10:25 BP 132 / 72; Pulse 67; Resp 20; Temp 98.4(O); Pulse Ox 99% on R/A; Pain 8/10; ss 10:27 Temp 98.4(TE); ss 13:56 BP 161 / 79; Pulse 71; Resp 15; Pulse Ox 100% on R/A; Pain 0/10; ss MDM: 10:44 Patient medically screened. tanja 15:44 Data reviewed: vital signs, nurses notes. Data interpreted: Pulse oximetry: on room air snw is 100 %. Interpretation: normal. Counseling: I had a detailed discussion with the patient and/or guardian regarding: the historical points, exam findings, and any diagnostic results supporting the discharge/admit diagnosis, lab results, the need for outpatient follow up, to return to the emergency department if symptoms worsen or persist or if there are any questions or concerns that arise at home. Response to treatment: the patient's symptoms have markedly improved after treatment. 05/30 10:30 Order name: CBC with Diff; Complete Time: 11:30 snw 05/30 10:30 Order name: CMP; Complete Time: 11:30 snw 05/30 10:30 Order name: Lipase; Complete Time: 11:30 snw 05/30 13:48 Order name: Urine Dipstick-Ancillary; Complete Time: 13:50 EDMS 05/30 10:30 Order name: IV Saline Lock; Complete Time: 13:30 snw 05/30 10:30 Order name: Labs collected and sent; Complete Time: 13:30 snw 05/30 10:30 Order name: Urine Dipstick-Ancillary (obtain specimen); Complete Time: 14:15 snw Administered Medications: 13:50 Drug: NS 0.9% 1000 ml Route: IV; Rate: 1 bolus; Site: left antecubital; ss 16:06 Follow up: IV Status: Completed infusion ss 13:52 Drug: Zofran (Ondansetron) 4 mg Route: IVP; Site: left antecubital; ss 16:06 Follow up: Response: No adverse reaction ss 13:54 Drug: Pepcid (famotidine) 20 mg Route: IVP; Site: left antecubital; ss 14:15 Follow up: Response: No adverse reaction ss 13:56 Drug: morphine 4 mg Route: IVP; Infused Over: 4 mins; Site: left antecubital; ss 16:06 Follow up: Response: No adverse reaction; Pain is decreased ss 14:15 Drug: Potassium Chloride 20 mEq Route: IV; Rate: calculated rate; Site: left ss antecubital; 16:06 Follow up: IV Status: Completed infusion ss 14:15 Drug: Valium (diazepam) 5 mg Route: IVP; Site: left antecubital; ss 16:06 Follow up: Response: No adverse reaction; Pain is decreased ss 16:12 Drug: Dicyclomine 20 mg Route: PO; ss 16:30 Follow up: Response: No adverse reaction ss Disposition Summary: 05/30/22 15:44 Discharge Ordered Location: Home snw Condition: Stable snw Diagnosis - Upper abdominal pain, unspecified snw - Hypokalemia snw Followup: snw - With: Emergency Department - When: As needed - Reason: Worsening of condition Followup: snw - With: Private Physician - When: 2 - 3 days - Reason: Recheck today's complaints, Continuance of care, Re-evaluation by your physician Discharge Instructions: - Discharge Summary Sheet snw - Abdominal Pain, Adult snw - Hypokalemia snw - Colic snw - Potassium Content of Foods snw - Rehydration, Adult snw Forms: - Medication Reconciliation Form snw - Thank You Letter snw - Antibiotic Education snw - Prescription Opioid Use snw Prescriptions: - Valium 5 mg Oral Tablet - take 1 tablet by ORAL route every 8 hours As needed; 6 tablet; Refills: 0, snw Product Selection Permitted Signatures: Dispatcher [employer] Bryce Brunson MD MD cha Waters, Shelly, GROWTH HACKER-C GROWTH HACKER-Sanderw Polina Benitez RN RN
[2022-05-30] MEDS ORDERED: DICYCLOMINE HCL 10 MG CAP ONE (16:08)
[2022-05-30 16:55] VITALS: TEMP 98.4
[2022-05-30 16:57] VITALS: BP 161/79; O2SAT 100
[2022-06-01] MEDS ORDERED: FUROSEMIDE 40 MG/4 ML VIAL ONE (08:42)
[2022-06-04] MEDS ORDERED: ENOXAPARIN 40 MG/0.4 ML SQ ONE (18:41)
[2022-06-04] MEDS ORDERED: ASPIRIN 81 MG CHEWABLE TABLET ONE (18:41)
== END 2022-05-30 16:19 | disposition home or self-care (01) ==
LOC: ER 09:14
DX: E87.6 Hypokalemia (principal); I10 Essential (primary) hypertension; F17.220 Nicotine dependence, chewing tobacco, uncomplicated; Z85.038 Personal history of other malignant neoplasm of large intestine
CPT/HCPCS: 96365; 85025; 36415; 81003; 83690; 80053; 96375; 99284; 96366; J3480; J3360; J7030; J2405

== ENCOUNTER 2022-08-31 20:35 | Emergency (ER) | payer MEDICARE ==
--- OUTSIDE RECORDS SUMMARY | 2022-08-31 20:41 | XMS REPORT | Continuity of Care Document ---
:1955 Author Organization [facility] t Address [address] [place] [address] Care Team Providers Name Role Phone FLOR ESCOBAR Attending Clinician Unavailable Ogreagan_Debby Attending Clinician Unavailable Flor Escobar MD Attending Clinician [phone] [place] [address] Ct Room Attending Clinician Unavailable FLOR ESCOBAR Attending Clinician Unavailable Butch Scott Attending Clinician Unavailable Jorge Oates Attending Clinician Unavailable Lucian Orosco Attending Clinician Unavailable Yobany Mendez Attending Clinician Unavailable Ogreagan_Debby Admitting Clinician Unavailable Butch Scott Admitting Clinician Unavailable Physician, No Primary or Family Admitting Clinician UnavailJorge Fay Admitting Clinician Unavailable UNDEFINED Admitting Clinician Unavailable Yobany Mendez Admitting Clinician Unavailable Payers Payer Name Policy Type Policy Number Effective Date Expiration Date S ource [employer] [id number] [employer] [id number] 2021 (MEDICARE 00:00:00 REPLACEMENT HMO) Problems This patient has no known problems. Allergies, Adverse Reactions, Alerts Allergy Allergy Status Severity Reaction(s) Onset Inactive Treating Comm ents Source Name Type Date Date Clinician No Known DA Active U [facility] 01-22 Gaylord s 00:00: Health 00 are [facility] Social [facility] Social Habit Start Date Stop Date Quantity Comments Source Sex Ass[birth year] At [birth year] [facility] 00:00:00 [facility]:00 [facility] Medications This patient has no known medications. Procedures Procedure Date / Time Performing Clinician Source Performed COMPREHENSIVE METABOLIC 2022-07-24 08:55:00 [facility] CBC W/AUTO DIFF WITH 2022-07-24 08:55:00 [facility] PLATELETS Medicine CBC W ABSOLUTE 2022-07-24 06:08:28 [facility] of NEUTROPHIL COUNT Medicine CEA 2022-07-24 06:08:28 [facility] Medicine MAGNESIUM 2022-07-24 06:08:28 [facility] COMPREHENSIVE METABOLIC 2022-07-03 08:56:00 [facility] CBC W/AUTO DIFF WITH 2022-07-03 08:56:00 [facility] PL[facility]LETS [facility] CBC W ABSOLUTE 2022-07-03 06:16:31 [facility] of NEUTROPHIL COUNT Medicine CEA 2022-07-03 06:16:31 [facility] Medicine MAGNESIUM 2022-07-03 06:16:31 [facility] Medicine AMB REF TO GENETICS 2022-05-13 16:49:56 [facility] COUNSELOR (CANCER) Medicine HEPATITIS B VIRAL DNA 2022-05-13 09:30:11 [facility] PCR Medicine HEPATITIS B SURFACE 2022-05-13 08:41:00 [facility] of ANTIGEN Medicine HEP B CORE ANTIBODY, 2022-05-13 08:41:00 [facility] TOTAL Medicine HEPATITIS B SURFACE AB 2022-05-13 08:41:00 [facility] HEPATITIS C ANTIBODY 2022-05-13 08:41:00 [facility] COMPREHENSIVE METABOLIC 2022-05-13 08:41:00 [facility] HCG, QUALITATIVE, URINE 2022-05-13 08:41:00 [facility] CBC W/AUTO DIFF WITH 2022-05-13 08:41:00 [facility] PLATELETS Medicine CBC W ABSOLUTE 2022-05-13 06:22:30 [facility] NEUTROPHIL COUNT Medicine CEA 2022-05-13 06:22:30 [facility] MAGNESIUM 2022-05-13 06:22:30 [facility] HEPATITIS C ANTIBODY 2022-04-29 11:30:00 [facility] HEPATITIS B SURFACE AB 2022-04-29 11:30:00 [facility] HEPATITIS B SURFACE 2022-04-29 11:30:00 [facility] HEP B CORE ANTIBODY, 2022-04-29 11:30:00 [facility] TOTAL [facility] CBC W/AUTO DIFF WITH 2022-04-29 11:30:00 [facility] COMPREHENSIVE METABOLIC 2022-04-29 11:30:00 [facility] CEA 2022-04-29 11:30:00 [facility] [id number] 2022-02-03 00:00:00 MELISSAJO [facility] [id number] 2022-01-27 00:00:00 [facility]AAER [facility] [id number] 2022-01-27 00:00:00 [facility] [id number] 2022-01-27 00:00:00 [facility] [id number] 2022-01-27 00:00:00 [facility] Plan of Care Planned Activity Planned Date Details Comments Source Future Scheduled 2022-07-[address] [facility] 00:[facility]:00 WELLNESS (YEAR 2 or Medical Center FIRST YEAR if no IPPE) [code = MEDICARE ANNUAL WELLNESS (YEAR 2 or FIRST YEAR if no IPPE)] Future Scheduled 2022-07-[address] [facility] 00:00:00 WELLNESS (YEAR 2 or Medical Center FIRST YEAR if no IPPE) [code = MEDICARE ANNUAL WELLNESS (YEAR 2 or FIRST YEAR if no IPPE)] Future Scheduled 2022-07-[address] [facility] 00:00:00 WELLNESS (YEAR 2 or Medical Center FIRST YEAR if no IPPE) [code = MEDICARE ANNUAL WELLNESS (YEAR 2 or FIRST YEAR if no IPPE)] Future Scheduled 2022-07-[address] [facility] 00:00:00 WELLNESS (YEAR 2 or Medical Center FIRST YEAR if no IPPE) [code = MEDICARE ANNUAL WELLNESS (YEAR 2 or FIRST YEAR if no IPPE)] Future Scheduled 2022-07-[address] [facility] 00:00:00 WELLNESS (YEAR 2 or Medical Center FIRST YEAR if no IPPE) [code = MEDICARE ANNUAL WELLNESS (YEAR 2 or FIRST YEAR if no IPPE)] Future Scheduled 2022-07-[address] [facility] 00:00:00 (12+) [code = Medical Center DEPRESSION SCREENING (12+)] Future Scheduled 2022-07-06 FALLS RISK SCREENING [facility] 00:00:00 [code = FALLS RISK Medical C enter SCREENING] Future Scheduled 2022-07-[address] [facility] 00:00:00 (12+) [code = Medical Center DEPRESSION SCREENING (12+)] Future Scheduled 2022-07-06 FALLS RISK SCREENING [facility] 00:00:00 [code = FALLS RISK Medical C enter SCREENING] Future Scheduled 2022-07-[address] [facility] 00:00:00 (12+) [code = Medical Center DEPRESSION SCREENING (12+)] Future Scheduled 2022-07-06 FALLS RISK SCREENING [facility] 00:00:00 [code = FALLS RISK Medical C enter SCREENING] Future Scheduled 2022-07-[address] [facility] 00:00:00 (12+) [code = Medical Center DEPRESSION SCREENING (12+)] Future Scheduled 2022-07-06 FALLS RISK SCREENING [facility] 00:00:00 [code = FALLS RISK Medical C enter SCREENING] Future Scheduled 2022-07-[address] [facility] 00:00:00 (12+) [code = Medical Center DEPRESSION SCREENING (12+)] Future Scheduled 2022-07-06 FALLS RISK SCREENING [facility] 00:00:00 [code = FALLS RISK Medical C enter SCREENING] Future Scheduled 2022-03-06 INFLUENZA VACCINE (#1) C [...] SCREENING] Future Scheduled 2019-09-19 PNEUMOCOCCAL 65+ YRS ([address] [facility] 00:00:00 - PCV) [code = Medical Cente r PNEUMOCOCCAL 65+ YRS (1 - PCV)] Future Scheduled 2019-09-19 PNEUMOCOCCAL 65+ YRS ([address] [facility] 00:00:00 - PCV) [code = Medical Cente r PNEUMOCOCCAL 65+ YRS (1 - PCV)] Future Scheduled 2019-09-19 PNEUMOCOCCAL 65+ YRS ([address] [facility] 00:00:00 - PCV) [code = Medical Cente r PNEUMOCOCCAL 65+ YRS (1 - PCV)] Future Scheduled 2019-09-19 PNEUMOCOCCAL 65+ YRS ([address] [facility] 00:00:00 - PCV) [code = Medical Cente r PNEUMOCOCCAL 65+ YRS (1 - PCV)] Future Scheduled 2019-09-19 PNEUMOCOCCAL 65+ YRS ([address] [facility] 00:00:00 - PCV) [code = Medical Cente r PNEUMOCOCCAL 65+ YRS (1 - PCV)] Future Scheduled 2019-09-19 PNEUMOCOCCAL 65+ YRS ([address] [facility] 00:00:00 - PCV) [code = Medical Cente r PNEUMOCOCCAL 65+ YRS (1 - PCV)] Future Scheduled 2019-09-19 PNEUMOCOCCAL 65+ YRS ([address] [facility] 00:00:00 - PCV) [code = Medical Cente r PNEUMOCOCCAL 65+ YRS (1 - PCV)] Future Scheduled 2019-09-19 PNEUMOCOCCAL 65+ YRS ([address] [facility] 00:00:00 - PCV) [code = Medical Cente r PNEUMOCOCCAL 65+ YRS (1 - PCV)] Future Scheduled 2019-09-19 PNEUMOCOCCAL 65+ YRS ([address] [facility] 00:00:00 - PCV) [code = Medical Cente r PNEUMOCOCCAL 65+ YRS (1 - PCV)] Future Scheduled 2019-09-19 PNEUMOCOCCAL 65+ YRS ([address] [facility] 00:00:00 - PCV) [code = Medical Cente r PNEUMOCOCCAL 65+ YRS (1 - PCV)] Future Scheduled 2019-09-19 PNEUMOCOCCAL 65+ YRS ([address] [facility] 00:00:00 - PCV) [code = Medical Cente r PNEUMOCOCCAL 65+ YRS (1 - PCV)] Future Scheduled 2019-09-19 PNEUMOCOCCAL 65+ YRS ([address] [facility] 00:00:00 - PCV) [code = Medical Cente r PNEUMOCOCCAL 65+ YRS (1 - PCV)] Future Scheduled 2019-09-19 PNEUMOCOCCAL 65+ YRS ([address] [facility] 00:00:00 - PCV) [code = Medical Cente r PNEUMOCOCCAL 65+ YRS (1 - PCV)] Future Scheduled 2019-09-19 PNEUMOCOCCAL 65+ YRS ([address] [facility] 00:00:00 - PCV) [code = Medical Cente r PNEUMOCOCCAL 65+ YRS (1 - PCV)] Future Scheduled 2019-09-19 PNEUMOCOCCAL 65+ YRS ([address] [facility] 00:00:00 - PCV) [code = Medical Cente r PNEUMOCOCCAL 65+ YRS (1 - PCV)] Future Scheduled 2019-09-19 PNEUMOCOCCAL 65+ YRS ([address] [facility] 00:00:00 - PCV) [code = Medical Cente r PNEUMOCOCCAL 65+ YRS (1 - PCV)] Future Scheduled 2004 SHINGLES VACCINES ([address] [facility] 00:00[facility]00 2[facility] Future [facility] 2004 SHINGLES VACCINES ([address] [facility]:00[facility]00 [facility] Future Scheduled 2004 SHINGLES VACCINES ([address] [facility] 00:00:00 2) [facility] Future Scheduled 2004 SHINGLES VACCINES ([address] [facility] 00:00:00 2) [code = SHINGLES Medical Center VACCINES (1 of 2)] Future Scheduled 2004 SHINGLES VACCINES ([address] [facility] 00:00:00 2) [code = SHINGLES Medical Center VACCINES (1 of 2)] Future Scheduled 2004 SHINGLES VACCINES ([address] [facility] 00:00:00 2) [code = SHINGLES Medical Center VACCINES (1 of 2)] Future Scheduled 2004 SHINGLES VACCINES ([address] [facility] 00:00:00 2) [code = SHINGLES Medical Center VACCINES (1 of 2)] Future Scheduled 2004 SHINGLES VACCINES ([address] [facility] 00:00:00 2) [code = SHINGLES Medical Center VACCINES (1 of 2)] Future Scheduled 2004 SHINGLES VACCINES ([address] [facility] 00:00:00 2) [code = SHINGLES Medical Center VACCINES (1 of 2)] Future Scheduled 2004 SHINGLES VACCINES ([address] [facility] 00:00:00 2) [code = SHINGLES Medical Center VACCINES (1 of 2)] Future Scheduled 2004 SHINGLES VACCINES ([address] [facility] 00:00:00 2) [code = SHINGLES Medical Center VACCINES (1 of 2)] Future Scheduled 2004 SHINGLES VACCINES ([address] [facility] 00:00:00 2) [code = SHINGLES Medical Center VACCINES (1 of 2)] Future Scheduled 2004 SHINGLES VACCINES ([address] [facility] 00:00:00 2) [code = SHINGLES Medical Center VACCINES (1 of 2)] Future Scheduled 2004 SHINGLES VACCINES ([address] [facility] 00:00:00 2) [code = SHINGLES Medical Center VACCINES (1 of 2)] Future Scheduled 2004 SHINGLES VACCINES ([address] [facility] 00:00:00 2) [code = SHINGLES Medical Center VACCINES (1 of 2)] Future Scheduled 2004 SHINGLES VACCINES ([address] [facility] 00:00:00 2) [code = SHINGLES Medical Center VACCINES (1 of 2)] Future Scheduled [...] [facility] Future Scheduled 1954 Screening for malignant [facility] 00:00:00 neoplasm of colon Medical Ce nter (procedure) [code = [id number]] Future Scheduled 1954 Screening for malignant [facility] 00:00:00 neoplasm of colon Medical Ce nter (procedure) [code = 019069622] Future Scheduled 1954 Screening for malignant [facility] 00:00:00 neoplasm of colon Medical Ce nter (procedure) [code = 626420471] Future Scheduled 1954 Sigmoidoscopy [code = [facility]oscopy] [facility] Future Scheduled 1954 CT Colonography (combo) [facility] 00:00:00 [code = CT Colonography [facility] (combo)] Future Scheduled 1954 Screening for malignant [facility] 00:00:00 neoplasm of colon Medical Ce nter (procedure) [code = [id number]] Future Scheduled 1954 Screening for malignant [facility] 00:00:00 neoplasm of colon Medical Ce nter (procedure) [code = 195354875] Future Scheduled 1954 Screening for malignant [facility] 00:00:00 neoplasm of colon Medical Ce nter (procedure) [code = 432178230] Future Scheduled 1954 Screening for malignant [facility] 00:00:00 neoplasm of colon Medical Ce nter (procedure) [code = 481723382] Future Scheduled 1954 Sigmoidoscopy [code = [facility]oscopy] [facility] Future Scheduled 1954 CT Colonography (combo) [facility] 00:00:00 [code = CT Colonography [facility] (combo)] Future Scheduled 1954 Screening for malignant [facility] 00:00:00 neoplasm of colon Medical Ce nter (procedure) [code = 907987701] Future Scheduled 1954 Screening for malignant [facility] 00:00:00 neoplasm of colon Medical Ce nter (procedure) [code = 777615243] Future Scheduled 1954 Screening for malignant [facility] 00:00:00 neoplasm of colon Medical Ce nter (procedure) [code = 255812276] Future Scheduled 1954 Screening for malignant [facility] 00:00:00 neoplasm of colon Medical Ce nter (procedure) [code = 615685805] Future Scheduled 1954 Sigmoidoscopy [code = [facility]] [facility] Cent[facility] Future Scheduled 1954 CT Colonography (combo) [facility] 00:00:00 [code = CT Colonography [facility] (combo)] Future Scheduled 1954 Screening for malignant [facility] 00:00:00 neoplasm of colon Medical Ce [facility]ter (procedure) [code = 249927066] Future Scheduled 1954 Screening for malignant [facility] 00:00:00 neoplasm of colon Medical Ce nter (procedure) [code = 193774657] Future Scheduled 1954 Screening for malignant [facility] 00:00:00 neoplasm of colon Medical Ce nter (procedure) [code = 408996458] Future Scheduled 1954 Screening for malignant [facility] 00:00:00 neoplasm of colon Medical Ce nter (procedure) [code = 342024101] Future Scheduled 1954 Sigmoidoscopy [code = [facility]oscopy] [facility] Cent[facility] r Future Scheduled 1954 CT Colonography (combo) [facility] 00:00:00 [code [facility] Future Scheduled 1954 Screening for malignant [facility] 00:00:00 neoplasm of colon Medical Ce nter (procedure) [code = 332483572] Future Scheduled 1954 Screening for malignant [facility] 00:00:00 neoplasm of colon Medical Ce nter (procedure) [code = 111256634] Future Scheduled 1954 Screening for malignant [facility] 00:00:00 neoplasm of colon Medical Ce [facility]ter (procedure) [code = 461923387] Future Scheduled 1954 Screening for malignant [facility] 00:00:00 neoplasm of colon Medical Ce nter (procedure) [code = 109380903] Future Scheduled 1954 Sigmoidoscopy [facility]code = [facility]] [facility] Future Scheduled 1954 CT Colonography (combo) [facility] 00:00:00 [code = [facility] Future Scheduled 1954 Screening for malignant [facility] 00:00:00 neoplasm of colon Medical Ce [facility]ter (procedure) [code = 472223348] Future Scheduled 1954 Screening for malignant [facility] 00:00:00 neoplasm of colon Medical Ce [facility]ter (procedure) [code = 610243243] Future Scheduled 1954 Screening for malignant [facility] 00:00:00 neoplasm of colon Medical Ce [facility]ter (procedure) [code = 919435091] Future Scheduled 1954 Screening for malignant [facility] 00:00:00 neoplasm of colon Medical Ce [facility]ter (procedure) [code = 964507454] Future Scheduled 1954 Sigmoidoscopy [facility]code = [facility]oscopy] [facility] Cent[facility] Future Scheduled 1954 CT Colonography (combo) [facility] 00:00:00 [code = [facility] Future Scheduled 1954 CT Colonography (combo) [facility] 00:00:00 [code = [facility] Future Scheduled 1954 Screening for malignant [facility] 00:00:00 neoplasm of colon Medical Ce [facility]ter (procedure) [code = 207798616] Future Scheduled 1954 Screening for malignant [facility] 00:00:00 neoplasm of colon Medical Ce [facility]ter (procedure) [code = 050343622] Future Scheduled [address] Screening for malignant [facility] 00:00:00 neoplasm of colon Medical Ce [facility]ter (procedure) [code = 684826761] Future Scheduled 1954 Screening for malignant [facility] 00:00:00 neoplasm of colon Medical Ce nter (procedure) [code = 033144455] Future Scheduled 1954 Sigmoidoscopy [facility]code = [facility]oscopy] Medical Cent[facility] r Future Scheduled 1954 Screening for malignant [facility] 00:00:00 neoplasm of colon Medical Ce [facility]ter (procedure) [code = 316721862] Future Scheduled 1954 Screening for malignant [facility] 00:00:00 neoplasm of colon Medical Ce [facility]ter (procedure) [code = 218649490] Future Scheduled 1954 CT Colonography (combo) [facility] 00:00:00 [code = CT Colonography [facility] (combo)] Future Scheduled 1954 Screening for malignant [facility] 00:00:00 neoplasm of colon Medical Ce nter (procedure) [code = 869158310] Future Scheduled 1954 Screening for malignant [facility] 00:00:00 neoplasm of colon Medical Ce [facility]ter (procedure) [code = 381773491] Future Scheduled [address] Screening for malignant [facility] 00:00:00 neoplasm of colon Medical Ce [facility]ter (procedure) [code = 032436207] Future Scheduled [address] Screening for malignant [facility] 00:00:00 neoplasm of colon Medical Ce nter (procedure) [code = 294527755] Future Scheduled 1954 Sigmoidoscopy [facility]code = [facility]oscopy] [facility] Cent[facility] Future Scheduled 1954 Screening for malignant [facility] 00:00:00 neoplasm of colon Medical Ce [facility]ter (procedure) [code = 593775632] Future Scheduled 1954 CT Colonography (combo) [facility] 00:00:00 [code = CT Colonography [facility] (combo)] Future Scheduled 1954 Screening for malignant [facility] 00:00:00 neoplasm of colon Medical Ce nter (procedure) [code = 995037346] Future Scheduled 1954 Screening for malignant [facility] 00:00:00 neoplasm of colon Medical Ce nter (procedure) [code = 121521767] Future Scheduled 1954 Screening for malignant [facility] 00:00:00 neoplasm of colon Medical Ce nter (procedure) [code = 859547756] Future Scheduled 1954 Screening for malignant [facility] 00:00:00 neoplasm of colon Medical Ce nter (procedure) [code = 163850722] Future Scheduled 1954 Screening for malignant [facility] 00:00:00 neoplasm of colon Medical Ce nter (procedure) [code = 200827827] Future Scheduled 1954 Sigmoidoscopy [code = [facility]oscopy] [facility] Cent[facility] Future Scheduled 1954 Sigmoidoscopy [code = [facility] 00:[facility] S[facility]oidoscopy] [facility] Future Scheduled 1954 CT Colonography (combo) [facility] 00:00:00 [code = CT Colonography [facility] (combo)] Future Scheduled 1954 Screening for malignant [facility] 00:00:00 neoplasm of colon Medical Ce [facility]ter (procedure) [code = 613500996] Future Scheduled 1954 Screening for malignant [facility] 00:00:00 neoplasm of colon Medical Ce nter (procedure) [code = 891389900] Future Scheduled 1954 Screening for malignant [facility] 00:00:00 neoplasm of colon Medical Ce nter (procedure) [code = 186329286] Future Scheduled 1954 Screening for malignant [facility] 00:00:00 neoplasm of colon Medical Ce nter (procedure) [code = 003687326] Future Scheduled 1954 Sigmoidoscopy [facility]code = [facility]oscopy] [facility] Cent[facility] Future Scheduled 1954 CT Colonography (combo) [facility] 00:00:00 [code = CT Colonography [facility] (combo)] Future Scheduled 1954 CT Colonography (combo) [facility] 00:00:00 [code = CT Colonography [facility] (combo)] Future Scheduled 1954 Screening for malignant [facility] 00:00:00 neoplasm of colon Medical Ce [facility]ter (procedure) [code = 384083308] Future Scheduled 1954 Screening for malignant [facility] 00:00:00 neoplasm of colon Medical Ce nter (procedure) [code = 947677514] Future Scheduled 1954 Screening for malignant [facility] 00:00:00 neoplasm of colon Medical Ce nter (procedure) [code = 818420394] Future Scheduled 1954 Screening for malignant [facility] 00:00:00 neoplasm of colon Medical Ce nter (procedure) [code = 594672509] Future Scheduled 1954 Sigmoidoscopy [facility]code = [facility]oscopy] Medical Cent[facility] Future Scheduled 1954 Screening for malignant [facility] 00:00:00 neoplasm of colon Medical Ce nter (procedure) [code = 870566430] Future Scheduled 1954 CT Colonography (combo) [facility] 00:00:00 [code = CT Colonography [facility] (combo)] Future Scheduled 1954 Screening for malignant [facility] 00:00:00 neoplasm of colon Medical Ce nter (procedure) [code = 768233731] Future Scheduled 1954 Screening for malignant [facility] 00:00:00 neoplasm of colon Medical Ce nter (procedure) [code = 934191022] Future Scheduled 1954 Screening for malignant [facility] 00:00:00 neoplasm of colon Medical Ce nter (procedure) [code = 977887342] Future Scheduled 1954 Screening for malignant [facility] 00:00:00 neoplasm of colon Medical Ce nter (procedure) [code = 191680219] Future Scheduled 1954 Screening for malignant [facility] 00:00:00 neoplasm of colon Medical Ce nter (procedure) [code = 949226279] Future Scheduled 1954 Sigmoidoscopy [facility]code = [facility] 00:[facility] S[facility]oscopy] [facility] Cent[facility] Future Scheduled 1954 Screening for malignant [facility] 00:00:00 neoplasm of colon Medical Ce nter (procedure) [code = 091259337] Future Scheduled 1954 CT Colonography (combo) [facility] 00:00:00 [code [facility] Future Scheduled 1954 Screening for malignant [facility] 00:00:00 neoplasm of colon Medical Ce nter (procedure) [code = 237602727] Future Scheduled 1954 Screening for malignant [facility] 00:00:00 neoplasm of colon Medical Ce nter (procedure) [code = 842989685] Future Scheduled 1954 Screening for malignant [facility] 00:00:00 neoplasm of colon Medical Ce [facility]ter (procedure) [code = 110286456] Future Scheduled 1954 Screening for malignant [facility] 00:00:00 neoplasm of colon Medical Ce nter (procedure) [code = 336417036] Future Scheduled 1954 Sigmoidoscopy [facility]code = [facility]oscopy] [facility] Cent[facility] Future Scheduled 1954 Screening for malignant [facility] 00:00:00 neoplasm of colon Medical Ce nter (procedure) [code = 450628567] Future Scheduled 1954 CT Colonography (combo) [facility] 00:00:00 [code = [facility] Future Scheduled 1954 Screening for malignant [facility] 00:00:00 neoplasm of colon Medical Ce [facility]ter (procedure) [code = 455254756] Future Scheduled 1954 Screening for malignant [facility] 00:00:00 neoplasm of colon Medical Ce [facility]ter (procedure) [code = 241378249] Future Scheduled 1954 Screening for malignant [facility] 00:00:00 neoplasm of colon Medical Ce [facility]ter (procedure) [code = 720273046] Future Scheduled 1954 Screening for malignant [facility] 00:00:00 neoplasm of colon Medical Ce nter (procedure) [code = 914912758] Future Scheduled 1954 Sigmoidoscopy [facility]code [facility]] [facility] Future Scheduled 1954 CT Colonography (combo) [facility] 00:00:00 [code = CT Colonography [facility] (combo)] Future Scheduled 1954 Screening for malignant [facility] 00:00:00 neoplasm of colon Medical Ce nter (procedure) [code = 418325830] Encounters Start End Encounter Admission Attending Care Care Encounter Source Date/Time Date/Time Type Type Clinicians Facility Department ID 2022-09-11 2022-09-11 Outpatient [facility] [id number] [facility] 00:00:00 00:00:00 [facility] 2022-08-20 2022-08-20 Outpatient [facility] DMG DMG [id number] [facility] 00:00:00 00:00:00 0215 [facility] 2022-08-14 2022-08-14 Orders Luz [facility] [id number] [address] 00:00[facility]00 00:00:[address] [facility] 2022-08-05 2022-08-05 Outpatient [facility] [id number] [facility] 00:00:00 00:00:00 [facility] 2022-08-05 2022-08-05 Outpatient [facility] [id number] [facility] 00:00:00 00:00:00 [facility] 2022-07-24 2022-07-24 Outpatient [facility] [id number] [facility] 09:37:05 23:59:00 [facility] 2022-07-15 2022-07-15 Outpatient [facility] [id number] [facility] 00:00:00 00:00:00 [facility] 2022-07-15 2022-07-15 Outpatient BCM BCM [id number] [facility] 00:00:00 00:00:00 [facility] 2022-07-03 2022-07-03 Outpatient BCM BCM [id number] [facility] 09:37:58 23:59:00 [facility] 2022-07-03 2022-07-03 [place] [id number] [facility] 09:36:58 11:15:36 [facility] 2022-07-03 2022-07-03 Outpatient BCM BCM [id number] [facility] 00:00:00 00:00:00 [facility] 2022-06-24 2022-06-24 Outpatient BCM BCM [id number] [facility] 00:00:00 00:00:00 [facility] 2022-06-24 2022-06-24 Outpatient BCM BCM [id number] [facility] 00:00:00 00:00:00 [facility] 2022-06-20 2022-06-20 Outpatient LUZ, [facility] [id number] [facility] 10:37:25 12:09:18 [facility] 2022-06-03 2022-06-03 Outpatient BCM BCM [id number] [facility] 00:00:00 00:00:00 [facility] 2022-06-03 2022-06-03 Outpatient BCM BCM [id number] [facility] 00:00:00 00:00:00 [facility] 2022-05-15 2022-05-15 [facility] [id number] [facility] 14:30:00 14:30:00 Encounter 1, [facility] 2022-05-15 2022-05-15 [facility] [id number] [facility] 14:30:00 14:30:00 Encounter 1, [facility] 2022-05-15 2022-05-15 Outpatient EL [facility] [id number] [facility] 00:00:00 00:00:00 [facility]OR 2022-05-13 2022-05-13 Outpatient [facility] [id number] [facility] 09:00:03 23:59:00 [facility] 2022-05-13 2022-05-13 Outpatient LUZ [facility] [id number] [facility] 08:58:31 10:03:39 [facility] 2022-05-13 2022-05-13 Outpatient [facility] [id number] [facility] 00:00:00 00:00:00 [facility] 2022-04-29 2022-04-29 Outpatient LUZ [facility] [id number] [facility] 09:13:53 11:12:51 [facility] 2022-04-29 2022-04-29 Orders Luz [facility] [id number] [facility] 00:00:00 00:00:[address] [facility] 2022-04-29 2022-04-29 Orders Luz [facility] [id number] [facility] 00:00:00 00:00:[address] [facility] 2022-02-07 2022-02-11 Inpatient EM Tyler, [facility] [id number] [facility] 14:40:00 15:08:00 Butch 81 [facility] are [facility] 2022-02-07 2022-02-11 Inpatient EM Tyler [facility] MED [id number] [facility] 14:40:00 15:08:00 Butch [id number] [facility] are [facility] 2022-02-08 2022-02-08 Outpatient DIANA ScottN REF [id number] [facility] 06:03:00 06:03:[address] [facility] 2022-02-02 2022-02-05 Inpatient EM Иван [facility] MEDI.01 [id number] [facility] 10:23:00 16:36:00 Jorge Vasquez [facility] are [facility] 2022-02-02 2022-02-05 Inpatient EM Иван, [facility] [id number] [facility] 10:23:00 16:36:00 Jorge [id number] [facility] are [facility] 2022-02-01 2022-02-01 Emergency EM Ana Luisa, [facility] OANH [id number] [facility] 12:26:00 16:45:00 Lucian 30 [facility] are [facility] 2022-02-01 2022-02-01 Emergency EM Ana Luisa, [facility] [id number] [facility] 12:26:00 16:45:00 Lucian [id number] [facility] are [facility] 2022-01-27 2022-01-30 Inpatient EL Mendez, [place]ob[place] [address] [id number] [facility] 05:57:00 10:01:00 [id number] [facility] are [facility] 2022-01-27 2022-01-30 Inpatient EL Mendez, Yobany [place] [address] [id number] [facility] 05:57:00 10:01:00 36 [facility] are [facility] 2022-01-28 2022-01-28 Out[facility] [id number] [facility] 08:13:00 08:13:[address] [facility] 2022-01-22 2022-01-22 Outpatient EL Mendez, Yobany [facility] 3DAY [id number] [facility] 08:00:00 23:00:00 76 [facility] are [facility] 2022-01-17 2022-01-17 Outpatient DMG DMG [id number] [facility] 06:04:00 06:04:00 0715 [facility] 2022-01-17 2022-01-17 Outpatient DMG DMG [id number] [facility] 00:00:00 00:00:00 0210 [facility] 2021-06-11 2021-06-11 Outpatient DMG DMG [id number] [facility] 08:01:00 08:01:00 1207 Medica l [...] ase note: New Reference Range Aug 2020 [id number] 06:55:00 Test Item Value Reference Range Interpretation Comments MAGNESIUM (test code = 1.8 mg/dL 1.6-2.6 N Pleas e note: New MAG) Reference Range Aug 2020 CBC W/AUTO [id number] 06:27:00 Test Item Value Reference Range Interpretation [...] BA#) 0.07 x10 3/uL 0.0-0.20 N VANCOMYCIN [id number] 04:25:00 Test Item Value Reference Range Interpretation Comments VANCOMYCIN TROUGH (test code = 15.5 mcg/dL 10.0-20.0 N VANCT) BASIC METABOLIC [id number] 04:55:00 Test Item Value Reference Range Interpretation [...] New = CA) Reference Range Aug 2020 [id number] 04:55:00 Test Item Value Reference Range Interpretation Comments MAGNESIUM (test code = 1.8 mg/dL 1.6-2.6 N Pleas e note: New MAG) Reference Range Aug 2020 CBC W/AUTO [id number] 04:52:00 Test Item Value Reference Range Interpretation [...] BA#) 0.06 x10 3/uL 0.0-0.20 N VANCOMYCIN [id number] 04:44:00 Test Item Value Reference Range Interpretation Comments VANCOMYCIN TROUGH (test code = 14.9 mcg/dL 10.0-20.0 N VANCT) BASIC METABOLIC [id number] 04:46:00 Test Item Value Reference Range Interpretation [...] AVG 3 .43 FEMALE: 1/2 AVG 3.27 A VG 4.97 AVG 4.44 2X AVG 9.55 2X AVG 7.05 3X AVG 23.39 3X AVG 11.04~~~~~~~~~~ ~~~~~~~ ~~~~~~~~~~~~~~~ ~~~~~~~ ~~~~~~~~~~~~~~~ ~~~~~~N ational Cholest shayna Education (NCEP ) Guidelines:~~~~ ~~~~~~~ ~~~~~~~~~~~~~~~ ~~~~~~~ ~~~~~~~~~~~~~~~ ~~~~~~~ ~~~~~ HDL Cholesterol<4 0mg/dL: HDL Cholesterol (Major risk factor for CHD)>60mg/dL: H DL Cholesterol (Ne gative risk factor for CHD)40-59mg/dL: Borderline Risk LDL Cholesterol<1 00mg/dL : Desirable LDL -C mlzqivrlwlesi64 0-159mg /dL: Borderline High Risk LDL-C cgoellzzjjqjr17 0-189mg /dL: High risk LDL-C concentration H DL-LDL Cholesterol is affected by a n umber of factors such as smoking, age an d sex.~~~~~~~~~~~ ~~~~~~~ ~~~~~~~~~~~~~~~ ~~~~~~~ ~~~~~~~~~~~~~~~ ~~~~~ LIVER FUNCTION [id number] 04:46:00 Test Item Value Reference Range Interpretation [...] code = ALKP) Reference Range Aug 2020 [id number] 04:46:00 Test Item Value Reference Range Interpretation Comments AMYLASE (test code = 150 U/L 30-118 H Please note: New DOMINGO) Reference Range Aug 2020 [id number] 04:46:00 Test Item Value Reference Range Interpretation Comments LIPASE (test code = 143 U/L 12-53 H Please n ote: New LIP) Reference Range Aug 2020 CBC W/AUTO [id number] 04:40:00 Test Item Value Reference Range Interpretation [...] 0.06 x10 3/uL 0.0-0.20 N BASIC METABOLIC [id number] 05:47:00 Test Item Value Reference Range Interpretation [...] New = CA) Reference Range Aug 2020 [id number] 05:47:00 Test Item Value Reference Range Interpretation Comments MAGNESIUM (test code = 1.8 mg/dL 1.6-2.6 N Pleas e note: New MAG) Reference Range Aug 2020 - XR ABDOMEN [id number] 08:37:00 [facility] : 1955 Sex: MPatient Name: MARGARET WEEMS Unit No: [id number] EXAMS: CPT CODE: [id number] XR ABDOMEN 1V 81870 Abdomen (KUB) History: abdominal exam Comparison: February [...] Dt/Tm: 02/04/2022 (0837) by:GiuseppePMT Printed Date/Time: 02/04/2022 (0844)Name: MARGARET WEEMS JR [facility] Phys: Casper Esqueda DO [address] : 1955 Age: 66 Sex: [place] [address] Loc: P.0576 1 Exam Date: 02/04/2022 Status: ADM IN PH: FAX: PAGE 1 Signed ReportBASIC METABOLIC [id number] 05:03:00 Test Item Value Reference Range Interpretation [...] New = CA) Reference Range Aug 2020 [id number] 05:03:00 Test Item Value Reference Range Interpretation Comments MAGNESIUM (test code = 2.0 mg/dL 1.6-2.6 N Pleas e note: New MAG) Reference Range Aug 2020 - XR CHEST 1 [id number] 08:55:00 [facility] : 1955 Sex: MPatient Name: MARGARET WEEMS Unit No: [id number] EXAMS: CPT CODE: [id number] XR CHEST 1 V 49081 Chest Radiograph History: NG TUBE PLACEMENT Comparison: [...] m2): Air Kerma (mGy): Trscr Dt/Tm: 02/03/2022 (0853)by:GiuseppePMT Printed Date/Time: 02/03/2022 (7995) [facility] [address] : 1955 Age: 66 Sex: M [place], [place] [address]Agcd No: [id number] Loc: P.0576 1 Exam Date: 02/03/2022 Status: [...] New = CA) Reference Range Aug 2020 [id number] 04:13:00 Test Item Value Reference Range Interpretation Comments PHOSPHOROUS (test code 3.5 mg/dL 2.4-5.1 N Pleas e note: New = PHOS) Reference Range Aug 2020 [id number] 04:13:00 Test Item Value Reference Range Interpretation Comments MAGNESIUM (test code = 1.9 mg/dL 1.6-2.6 N Pleas e note: New MAG) Reference Range Aug 2020 CBC W/AUTO [id number] 03:51:00 Test Item Value Reference Range Interpretation [...] 3/uL 0.0-0.20 N - XR CHEST 1 [id number] 17:41:00 [facility] : 1955 Sex: MPatient Name: MARGARET WEEMS Unit No: [id number] EXAMS: CPT CODE: [id number] XR CHEST 1 V 08898 EXAM: - XR CHEST 1 V, - [...] M.D. CC: Jorge Oates MD Technologist: Brie Crow Fluoro Time: DAP (Gy m2): Air Kerma (mGy): Trscr Dt/Tm: 02/02/2022 (1741) by:[email or web address] Printed Date/Time: 02/02/2022 (1745) Name: MARGARET WEEMS JR [facility] Phys: Jorge Montes MD [address] : 1955 Age: 66 S ex: [place] [address] Loc: P.0576 1 Exam Date: 02/02/2022 Status: ADM IN PH: FAX: PAGE 1 Signed Report- XR ABDOMEN [id number] 17:41:00[facility] : 1955 Sex: MPatient Name: MARGARET WEEMS JR Unit No: [id number] EXAMS: CPT CODE: [id number] XR ABDO MEN 1V 73496 EXAM: - XR CHEST 1 V, - [...] Oates MD; Casper Blanco DO Technologist: Brie Crow Fluoro Time: DAP (Gym2): Air Kerma (mGy): Trscr Dt/Tm: 02/02/2022 (606) by:[email or web address] Printed Date/Time: 02/02/2022 (993) Name: MARGARET WEEMS JR [facility] Phys: Casper Esqueda DO [address] : 1955 Age: 66 Sex: [place] [address] Loc: P.0576 1 Exam Date: 02/02/2022 Status: ADM IN PH: FAX: PAGE 1 Signed Report- XR ABDOMEN [id number] 10:08:00 [facility] : 1955 Sex: MPatient Name: MARGARET WEEMS JR Unit No: [id number] EXAMS: CPT CODE: [id number] XR ABDOMEN 1V 04127 Location code: B2 Abdomen one view HISTORY: [...] orileus at 1008 Reported and signed by: Ynog Castle M.D. CC: Technologist: Brie Gutiérrez Time: DAP (Gy m2): Air Kerma (mGy): Trscr Dt/Tm: 02/02/2022 (1008) by:[email or web address] Printed Date/Time: 02/02/2022 (1011) Name: WEEMS,MARGARET JOHANNY MAXWELL [facility] Phys: Jose Butts [address] : 1955 Age: 66 Sex: [place] [address] Loc: P.ERS Exam Date: 02/02/2022 Status: REG ER PH: FAX: PAGE 1 Signed ReportBASIC METABOLIC [id number] 10:02:00 Test Item Value Reference Range Interpretation [...] CA) Reference Range Aug 2020 LIVER FUNCTION [id number] 10:02:00 Test Item Value Reference Range Interpretation [...] code = ALKP) Reference Range Aug 2020 [id number] 10:02:00 Test Item Value Reference Range Interpretation Comments LIPASE (test code = 70 U/L 12-53 H Please n ote: New LIP) Reference Range Aug 2020 CBC W/AUTO [id number] 09:34:00 Test Item Value Reference Range Interpretation [...] 3/uL 0.0-0.20 N - CT ABD PELVIS [id number] 15:49:00 [facility] : 1955 Sex: MPatient Name: MARGARET WEEMS Unit No: [id number] EXAMS: CPT CODE: [id number] CT ABD PELVIS W/CONT 35629 EXAM: - CT ABD PELVIS W/CONT HISTORY: [...] by: BRIANNA MELLO M.D. Name: MARGARET WEEMS [facility] Phys: Lucian Castle MD [address] : 1955 Age: 66 Sex: M [place] [address] Loc: P.ERS Exam Date: 02/01/2022 Status: REG ER PH: FAX: PAGE 1 Signed Report (CONTINUED) Patient Name: MARGARET WEEMS STEVEGRETTA Unit No: [id number] EXAMS: CPT CODE: [id number] CT ABD PELVIS W/CONT 68392 (Continued) CC: Lucian Orosco MD Technologist: NILAM SAMANO RT (R),(CT) CTDI: 8.57 DLP: 600.77 Trscr Dt/Tm: 02/01/2022 (1549) by:[email or web address] Printed Date/Time: 02/01/2022 (1652) Name: MARGARET WEEMS [facility] Phys: Lucian Castle MD [address] DOB: 1955 Age: 66 Sex: M [place], [place] [address] Loc: P.ERS Exam Date: 02/01/2022 Status: REG ER PH: FAX: PAGE 2 Signed ReportUA RFLX MICR CULT IF [id number] 14:29:00 Test Item Value Reference Range Interpretation [...] SQU) Indication for culture: Suprapubic PainBASIC METABOLIC [id number] 14:04:00 Test Item Value Reference Range Interpretation [...] CA) Reference Range Aug 2020 LIVER FUNCTION [id number] 14:04:00 Test Item Value Reference Range Interpretation [...] code = ALKP) Reference Range Aug 2020 [id number] 14:04:00 Test Item Value Reference Range Interpretation Comments LIPASE (test code = 61 U/L 12-53 H Please n ote: New LIP) Reference Range Aug 2020 CBC W/AUTO [id number] 13:36:00 Test Item Value Reference Range Interpretation [...] = BA#) 0.02 x10 3/uL 0.0-0.20 N [id number] 12:37:00 Test Item Value Reference Range Interpretation Comments SURGICAL (test code = SR) RUN DATE: 03/13/22 [facility] - LAB PAGE 1 RUN TIME: 1447 Specimen Inquiry RUN USER: INTERFACE SCOTTIE ENT: MARGARET WEEMS JR LOC: ChaN POD B U #: [id number] AGE/SX: 66/M ROOM: [facility] RE01/27/22REG DR: Yobany Mendez MD : 53 BED: 1 DIS: 01/30/22 STATUS: DIS IN TLOC: SPEC #: [id number] RECD: 01/28/22 STATUS: PATTIE REJorge #: [id number] MIKEY: 01/27/[address] [facility] [address]: Yobany Mendez MD ENTERED: 01/28/22 SP TYPE: SURGICAL OTHR DR: Quentin Provider ORDERED: 24616, 57595, 94248/4, ANATOMIC SPEC HISTOLOGY: TISSUE ID BLK PCS HARPER LEV / PROCEDURE DISPOSITION ____ ___ ___ ___ ___ COLON NOS A 22 1 BONY B 1 1 TISSUES: A. COLON NOS - RIGHT COLON, LYMPH NODES B. 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 PLEASE SEE ORIGINAL [facility] RE[facility]ENCE [facility] REPORT FOR DETAILS Addendum Signed SIGNATURE ON FILE Guerrero Topete 03/13/22 1447 CAP CANCER SUMMARY CASE SUMMARY: (COLON AND [...] CONTINUED ON NEXT PAGE RUN DATE: 03/13/22 [facility] - LAB PAGE 2 RUN TIME: 1447 Specimen Inquiry RUN USER: INTERFACE SPEC #: [id number] PATIENT: MARGARET WEEMS JR #[id number] (Continued) ------- CAP CANCER SUMMARY (Continued) MARGINS [...] is probably not indicated; absence of both FLV8ufxqnerbexu and of BRAF V600E mutation suggests the possibility of Tuttle syndrome andsequencing and / or large deletion / duplication testing of germline MLH1 may be CONTINUED ON NEXT PAGE RUN DATE: 03/13/22 [facility] - LAB PAGE 3 RUN TIME: 1447 Specimen Inquiry RUN USER: INTERFACE SPEC #: [id number] PATIENT: DANKMARGARET WILSONGRETTA MAXWELL #[id number] (Continued) ------- FINAL DIAGNOSIS (Continued) indicated). B. [...] Thespecimen is submitted representatively in cassette B. TRAY/ks Technical component performed at [facility] [facility], [facility], [address] Unless gross only, the diagnosis is based [...] CONTINUED ON NEXT PAGE RUN DATE: 03/13/22 [facility] - LAB PAGE 4 RUN TIME: 1447 Specimen Inquiry RUN USER: INTERFACE SPEC #: [id number] PATIENT: WEEMSMARGARET ARNOLD JR #[id number] (Continued) ------- MICROSCOPIC DESCRIPTION Performed. 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)KRAS Exon 3 - Not detectedKRAS Exon 4 - Not detected BRAF MUTATION: Not detected PLEASE SEE ORIGINAL REFERENCE LAB REPORT FOR DETAILS Addendum Signed SIGNATURE ON FILE Guerrero Topete 03/11/221647 CLINICAL INFORMATION RIGHT COLON CARCINOMA ----- Signed SIGNATURE ON FILE Guerrero Topete 01/31/22 1237 END OF REPORT BASIC METABOLIC [id number] 04:30:00 Test Item Value Reference Range Interpretation [...] New = CA) Reference Range Aug 2020 [id number] 04:30:00 Test Item Value Reference Range Interpretation Comments MAGNESIUM (test code = 2.0 mg/dL 1.6-2.6 N Pleas e note: New MAG) Reference Range Aug 2020 CBC W/AUTO [id number] 04:18:00 Test Item Value Reference Range Interpretation [...] 0.03 x10 3/uL 0.0-0.20 N BASIC METABOLIC [id number] 05:44:00 Test Item Value Reference Range Interpretation [...] New = CA) Reference Range Aug 2020 [id number] 05:44:00 Test Item Value Reference Range Interpretation Comments MAGNESIUM (test code = 2.1 mg/dL 1.6-2.6 N Pleas e note: New MAG) Reference Range Aug 2020 CBC W/AUTO [id number] 05:36:00 Test Item Value Reference Range Interpretation [...] 0.03 x10 3/uL 0.0-0.20 N BASIC METABOLIC [id number] 05:53:00 Test Item Value Reference Range Interpretation [...] New = CA) Reference Range Aug 2020 [id number] 05:53:00 Test Item Value Reference Range Interpretation Comments MAGNESIUM (test code = 1.7 mg/dL 1.6-2.6 N Pleas e note: New MAG) Reference Range Aug 2020 COMPREHENSIVE METABOLIC [id number] 12:15:00 Test Item Value Reference Range Interpretation [...] Range Feb code = ALKP) 2020 AG [id number] 12:15:00 Test Item Value Reference Range Interpretation Comments AG CARCINOEMBRYONIC (test 2.32 ng/mL 0.0-3.[address] ease note: New code = CEA) Reference Range Aug 2020 PROTHROMBIN [id number] 12:06:00 Test Item Value Reference Range Interpretation [...] 2.5-3.5recurren t systemic emboli sm. THROMBOPLASTIN TIME [id number] 12:06:00 Test Item Value Reference Range Interpretation Comments THROMBOPLASTIN TIME 30.1 SECONDS 23.8-34.8 N INTERPRE TATIVE PARTIAL (test code = DATA: erapeutic PTT) range: Unfractionated heparin:55 - 80 seconds Argatroban:1.5 to 3 times the basel ine PTT CBC W/AUTO [id number] 11:53:00 Test Item Value Reference Range Interpretation [...]
[2022-08-31 22:33] LABS: Absolute Lymphocytes (CBC) 1.1 K/uL (0.7-4.9); Hematocrit 38.6 % (39.6-49.0); Lymphocytes % 16.2 % (15.3-44.8); MCV 96.2 fL (80-100); MPV 7.6 fL (7.6-11.3); RBC Red Blood Cell Count 4.01 M/uL (4.33-5.43)
[2022-08-31 22:41] LABS: Albumin 3.1 g/dL (3.4-5.0); Bilirubin Total 1.1 mg/dL (0.2-1.0); Potassium 4.2 mmol/L (3.5-5.1); Protein, Total 6.8 g/dL (6.4-8.2)
[2022-08-31 23:32] LABS: Urine Blood Negative (Negative); Urine Glucose Negative (Negative); Urine Protein 1+ (Negative); Urine Specific Gravity >=1.030 (1.005-1.030); Urine pH 5.5 (5.0-7.0)
[2022-08-31 23:54] LABS: Calcium Oxalate Crystals- Ur Few /HPF (None Seen); Urine Bacteria None Seen /HPF (<20); Urine Mucus 4+ /HPF (None Seen)
--- NOTE | 2022-09-01 00:11 | ER ---
Nurse's Notes [facility] Name: Haroldo Castillo Jr Age: 66 yrs Sex: Male : 1955 Arrival Date: 08/31/2022 Time: 20:39 Bed 17 Private MD: Diagnosis: Constipation, unspecified Presentation: 08/31 21:06 Chief complaint: Patient states: C/o constipation, states its been 2 days since last ll3 BM. Coronavirus screen: Vaccine status: Patient reports receiving the 2nd dose of the covid vaccine. At this time, the client does not indicate any symptoms associated with coronavirus-19. Ebola Screen: No symptoms or risks identified at this time. Initial Sepsis Screen: Does the patient meet any 2 criteria? No. Patient's initial sepsis screen is negative. Does the patient have a suspected source of infection? No. Patient's initial sepsis screen is negative. Risk Assessment: Do you want to hurt yourself or someone else? Patient reports no desire to harm self or others. Onset of symptoms was August 31, 2022. Care prior to arrival: Medication(s) given: Milk of magnesia 30 ML. 21:06 Method Of Arrival: Ambulatory ll3 21:06 Acuity: VIKTOR 3 ll3 Historical: - Allergies: 21:08 No Known Allergies; ll3 - Home Meds: 21:08 None [Active]; ll3 - PMHx: 21:08 colon cancer; Hypertensive disorder; ll3 - PSHx: 21:08 Cholecystectomy; colon resection; ll3 - Immunization history:: Client reports receiving the 2nd dose of the Covid vaccine. - Social history:: Smoking status: Patient denies any tobacco usage or history of. Screenin:30 [facility] ED Fall Risk Assessment (Adult) Score/Fall Risk Level 0 - 2 = Low Risk. Abuse eh3 screen: Denies threats or abuse. Denies injuries from another. Nutritional screening: No deficits noted. Tuberculosis screening: No symptoms or risk factors identified. Assessment: 21:30 General: Appears in no apparent distress. comfortable, Behavior is calm, cooperative, eh3 appropriate for age. Pain: Denies pain. Neuro: Level of Consciousness is awake, alert, obeys commands, Oriented to person, place, time, situation. Cardiovascular: Capillary refill < 3 seconds Patient's skin is warm and dry. Respiratory: Airway is patent Respiratory effort is even, unlabored, Respiratory pattern is regular, symmetrical. GI: Abdomen is round non-distended, Bowel sounds present X 4 quads. Abd is soft and non tender X 4 quads. GI: Reports constipation, rectal bleeding, flatulence, hemorrhoids. : No signs and/or symptoms were reported regarding the genitourinary system. EENT: No signs and/or symptoms were reported regarding the EENT system. Derm: Skin is pink, warm \T\ dry. Musculoskeletal: No signs and/or symptoms reported regarding the musculoskeletal system. 22:00 Reassessment: Patient appears in no apparent distress at this time. Patient and/or 3 family updated on plan of care and expected duration. Pain level reassessed. Patient is alert, oriented x 3, equal unlabored respirations, skin warm/dry/pink. 23:00 Reassessment: Patient appears in no apparent distress at this time. Patient and/or 3 family updated on plan of care and expected duration. Pain level reassessed. Patient is alert, oriented x 3, equal unlabored respirations, skin warm/dry/pink. Vital Signs: 21:06 BP 172 / 95; Pulse 63; Resp 16; Temp 98.5(O); Pulse Ox 100% on R/A; Weight 83.91 kg ll3 (R); Height 5 ft. 8 in. (172.72 cm) (R); Pain 0/10; 22:00 BP 156 / 87; Pulse 62; Resp 16; Pulse Ox 100% on R/A; eh3 23:00 BP 172 / 86; Pulse 64; Resp 16; Pulse Ox 100% on R/A; eh3 09/01 00:16 BP 159 / 95; Pulse 63; Resp 17; Pulse Ox 100% ; Pain 0/10; ke1 08/31 21:06 Body Mass Index 28.13 (83.91 kg, 172.72 cm) 3 ED Course: 08/31 20:39 Patient arrived in ED. ja2 21:08 Triage completed. 3 21:08 Arm band placed on. 3 21:13 Bryce Domingo PA is PHCP. cp 21:13 Jennifer Villeda MD is Attending Physician. cp 21:30 Christen Tejeda RN is Primary Nurse. 3 21:30 Patient has correct armband on for positive identification. Bed in low position. Call 3 light in reach. Side rails up X2. Pulse ox on. NIBP on. Door closed. Noise minimized. Lights dimmed. Warm blanket given. 22:16 Inserted saline lock: 20 gauge in right antecubital area, using aseptic technique. oe Blood collected. 09/01 00:16 IV discontinued. ke1 00:23 No provider procedures requiring assistance completed. eh3 02:41 CT Abd/Pelvis - IV Contrast Only In Process Unspecified. EDMS Administered Medications: 00:22 Drug: Lactulose 30 grams Volume: 45 ml; Route: PO; eh3 00:23 Follow up: Response: Medication administered at discharge. eh3 00:22 Drug: Dulcolax (bisacodyl) Suppository 10 mg Route: ND; eh3 00:23 Follow up: Response: Medication administered at discharge. eh3 Medication: 00:23 VIS not applicable for this client. eh3 Outcome: 00:10 Discharge ordered by MD. cp 00:23 Discharged to home ambulatory. eh3 00:23 Condition: stable 00:23 Discharge instructions given to patient, Instructed on discharge instructions, follow up and referral plans. medication usage, Demonstrated understanding of instructions, follow-up care, medications, Prescriptions given X 1. 00:24 Patient left the ED. 3 Signatures: Dispatcher [employer] EDMS Bryce Domingo PA PA cp Espinosa, Orlando oe Alexander, Jessica ja2 Loubet, Lynsea, RN RN ll3 Suad Francis RN RN ke1 Christen Tejeda, RN RN eh3 Corrections: (The following items were deleted from the chart) 08/31 23:42 22:30 Reassessment: Patient appears in no apparent distress at this time. Patient eh3 and/or family updated on plan of care and expected duration. Pain level reassessed. Patient is alert, oriented x 3, equal unlabored respirations, skin warm/dry/pink. eh3 23:43 22:22 Christen Tejeda, RN is Primary Nurse. 3 eh3
--- NOTE | 2022-09-01 00:11 | EDPHYS ---
Physician Documentation [facility] Name: Haroldo Castillo Jr Age: 66 yrs Sex: Male : 1955 Arrival Date: 08/31/2022 Time: 20:39 Bed 17 Private MD: ED Physician Jennifer Villeda HPI: 08/31 22:00 This 66 yrs old Male presents to ER via Ambulatory with complaints of Constipation. cp 22:00 The patient presents with constipation. cp 22:00 Onset: The symptoms/episode began/occurred 2 day(s) ago. The symptoms do not radiate. cp Associated signs and symptoms: Pertinent negatives: anorexia, blood in stools, chest pain, diarrhea, fever, testicular pain, abdominal pain. Historical: - Allergies: 21:08 No Known Allergies; ll3 - Home Meds: 21:08 None [Active]; ll3 - PMHx: 21:08 colon cancer; Hypertensive disorder; ll3 - PSHx: 21:08 Cholecystectomy; colon resection; ll3 - Immunization history:: Client reports receiving the 2nd dose of the Covid vaccine. - Social history:: Smoking status: Patient denies any tobacco usage or history of. ROS: 22:05 Constitutional: Negative for body aches, chills, fever, poor PO intake. cp 22:05 Eyes: Negative for injury, pain, redness, and discharge. cp 22:05 Cardiovascular: Negative for chest pain, edema, palpitations. 22:05 Respiratory: Negative for cough, shortness of breath, wheezing. 22:05 Abdomen/GI: Positive for constipation, Negative for abdominal pain, vomiting, diarrhea, black/tarry stool, rectal bleeding. Exam: 22:10 Constitutional: The patient appears in no acute distress, alert, awake, comfortable, cp non-diaphoretic, non-toxic, well developed, well nourished. 22:10 Head/Face: Normocephalic, atraumatic. cp 22:10 Eyes: Periorbital structures: appear normal, Conjunctiva: normal, no exudate, no injection, Sclera: no appreciated abnormality, Lids and lashes: appear normal, bilaterally. 22:10 ENT: External ear(s): are unremarkable, Nose: is normal, Mouth: Lips: moist, Oral mucosa: pink and intact, moist, Posterior pharynx: is normal, airway is patent, no erythema, no exudate. 22:10 Chest/axilla: Inspection: normal. 22:10 Cardiovascular: Rate: normal, Rhythm: regular. 22:10 Respiratory: the patient does not display signs of respiratory distress, Respirations: normal, no use of accessory muscles, no retractions, labored breathing, is not present, Breath sounds: are clear throughout, no decreased breath sounds, no stridor, no wheezing. 22:10 Abdomen/GI: Inspection: abdomen appears normal, Bowel sounds: active, all quadrants, Palpation: abdomen is soft and non-tender, in all quadrants. 22:10 Back: pain, is absent, ROM is normal. 22:10 Neuro: Orientation: to person, place \T\ time. Mentation: is normal, Motor: moves all fours, strength is normal, Gait: is steady, at a normal pace, without difficulty. Vital Signs: 21:06 BP 172 / 95; Pulse 63; Resp 16; Temp 98.5(O); Pulse Ox 100% on R/A; Weight 83.91 kg ll3 (R); Height 5 ft. 8 in. (172.72 cm) (R); Pain 0/10; 22:00 BP 156 / 87; Pulse 62; Resp 16; Pulse Ox 100% on R/A; eh3 23:00 BP 172 / 86; Pulse 64; Resp 16; Pulse Ox 100% on R/A; eh3 09/01 00:16 BP 159 / 95; Pulse 63; Resp 17; Pulse Ox 100% ; Pain 0/10; ke1 08/31 21:06 Body Mass Index 28.13 (83.91 kg, 172.72 cm) ll3 MDM: 08/31 21:21 Patient medically screened. cp 22:00 Differential diagnosis: bowel obstruction, constipation, ileus. cp 09/01 00:10 Data reviewed: vital signs, nurses notes, lab test result(s), radiologic studies, CT cp scan. 00:10 Consideration of Admission/Observation Escalation of care including cp admission/observation considered. Care significantly affected by the following chronic conditions: Hypertension, Cancer. Counseling: I had a detailed discussion with the patient and/or guardian regarding: the historical points, exam findings, and any diagnostic results supporting the discharge/admit diagnosis, lab results, radiology results, the need for outpatient follow up, a family practitioner, to return to the emergency department if symptoms worsen or persist or if there are any questions or concerns that arise at home. 08/31 21:57 Order name: CBC with Diff cp 08/31 21:57 Order name: CMP cp 08/31 21:57 Order name: Lipase cp 08/31 21:57 Order name: Urine Microscopic Only cp 08/31 22:34 Order name: CBC with Automated Diff; Complete Time: 22:36 EDMS 08/31 22:41 Order name: Comprehensive Metabolic Panel; Complete Time: 23:55 EDMS 08/31 21:57 Order name: CT Abd/Pelvis - IV Contrast Only cp 08/31 21:57 Order name: IV Saline Lock; Complete Time: 22:40 cp 08/31 21:57 Order name: Labs collected and sent; Complete Time: 22:40 cp 08/31 22:41 Order name: Lipase; Complete Time: 23:55 EDMS 08/31 23:32 Order name: Urine Dipstick-Ancillary; Complete Time: 23:55 EDMS 08/31 23:54 Order name: Urine Microscopic Only; Complete Time: 23:55 EDVA 08/31 23:55 Interpretation: Normal except: URBC 5-10; REEP 5-10; MUCUS 4+. cp 08/31 21:57 Order name: Urine Dipstick-Ancillary (obtain specimen); Complete Time: 23:35 cp Administered Medications: 00:22 Drug: Lactulose 30 grams Volume: 45 ml; Route: PO; 3 00:23 Follow up: Response: Medication administered at discharge. 3 00:22 Drug: Dulcolax (bisacodyl) Suppository 10 mg Route: CO; 3 00:23 Follow up: Response: Medication administered at discharge. 3 Disposition Summary: 09/01/22 00:10 Discharge Ordered Location: Home cp Problem: new cp Symptoms: are unchanged cp Condition: Stable cp Diagnosis - Constipation, unspecified cp Followup: cp - With: Private Physician - When: 1 - 2 days - Reason: Worsening of condition Discharge Instructions: - Discharge Summary Sheet cp - Constipation, Adult cp Forms: - Medication Reconciliation Form cp - Thank You Letter cp - Antibiotic Education cp - Prescription Opioid Use cp Prescriptions: - Miralax - take 17 gram by ORAL route once daily for 8-10 days; 1 bottle; Refills: 0, cp Product Selection Permitted Signatures: Dispatcher [employer] Bryce Leigh PA PA cp Loubet, Lynsea, RN RN ll3 Christen Tejeda RN RN eh3
[2022-09-01] MEDS ORDERED: BISACODYL 10 MG RECTAL SUPP ONE (00:17)
[2022-09-01] MEDS ORDERED: LACTULOSE 20 GM/30 ML UCUP ONE (00:18)
--- NOTE | 2022-09-01 12:24 | RAD REPORT ---
EXAM DESCRIPTION: CT - Abdomen Pelvis W Contrast - 09/01/2022 6:37 am CLINICAL HISTORY: CONSTIPATION TECHNIQUE: Axial computed tomography images of the abdomen and pelvis with intravenous contrast. S agittal and coronal reformatted images were created and reviewed. This CT exam was performed using one or more of the following dose reduction techniques: automated exposure control, adjustment of t he mA and/or kV according to patient size, and/or use of iterative reconstruction technique. COMPARISON: CT Abdomen Pelvis dated 05/27/2022 FINDINGS: Lung bases: Unremarkable. No mass. No consolidation. Heart: Coronary artery calcification. ABDOMEN: Liver: Stable 1.2 cm and 0.4 cm hypodense lesions at the hepatic dome which cannot be fully charact erized. No follow-up imaging is necessary. Gallbladder and bile ducts: Prior cholecystectomy. No ductal dilation. Pancreas: Mild pancreatic parenchymal atrophy. No ductal dilation. Spleen: Unremarkable. No splenomegaly. Adrenals: Unremarkable. No mass. Kidneys and ureters: Normal renal cortical enhancement bilaterally. Small bilateral cysts, the la rgest on the right measuring 1.9 cm. Additional subcentimeter hypodensities which are too small to characterize. No follow-up imaging is necessary. No calculi. No hydronephrosis. Stomach and bowel: Prior right hemicolectomy. Mild residual infiltrative changes within the right abdomen adjacent to the ileocolic anastomosis. Air-fluid levels within the proximal to mid large b owel. Moderate stool within the rectosigmoid colon. No obstruction. PELVIS: Appendix: See above. Bladder: The urinary bladder is decompressed. Reproductive: Unremarkable as visualized. ABDOMEN and PELVIS: Intraperitoneal space: Unremarkable. No free air. No significant fluid collection. Bones/joints: Multilevel spondylosis. No acute fracture. L1 intraosseous hemangioma. No dislo cation. Soft tissues: Unremarkable. Vasculature: Mild to moderate atherosclerotic disease. No abdominal aortic aneurysm. Lymph nodes: Unremarkable. No enlarged lymph nodes. IMPRESSION: 1. No evidence for bowel obstruction. Nonspecific large bowel air-fluid levels. 2. Prior right hemicolectomy. Mild residual infiltrative changes adjacent to the ileocolic anasto mosis. 3. Other findings as above. Electronically signed by: Umang Cruz MD 08/31/2022 11:32 PM GENERAL PURCHASING AGENT Due to temporary technical issues with the PACS/Fluency reporting system, reports are being signed by the in house radiologists without review as a courtesy to insure prompt reporting. The interpreting radiologist is fully responsible for the content of the report.
== END 2022-09-01 00:24 | disposition home or self-care (01) ==
LOC: ER 20:35
DX: K59.00 Constipation, unspecified (principal); I10 Essential (primary) hypertension; Z85.038 Personal history of other malignant neoplasm of large intestine
CPT/HCPCS: 85025; 36415; 83690; 80053; 74177; 99284; Q9967; 81003; 81015